=== PATIENT | male | born 1950 | race Caucasian/White ===

== ENCOUNTER → 2016-11-25 | Outpatient (CLI) | payer BC ==
[~2016-11-25] MED LIST: MODA1TAB PO
[2016-11-25 13:30] LABS: ESTIMATED AVERAGE GLUCOSE 166 mg/dl; HA1C FLAG Normal (Normal)
[2016-11-25 13:42] LABS: ALT/SGPT 39 U/L (12-78); AST/SGOT 19 U/L (15-37); BLOOD UREA NITROGEN 22 mg/dl (7-18); CALCIUM 9.3 mg/dl (8.5-10.1); CARBON DIOXIDE 23 mmol/L (21-32); CHLORIDE 105 mmol/L (98-107); GLUCOSE 129 mg/dl (70-99); POTASSIUM 4.7 mmol/L (3.5-5.1); SODIUM 135 mmol/L (136-145)
[2016-11-25 13:44] LABS: ALKALINE PHOSPHATASE 76 U/L (45-117); CHOLESTEROL 168 mg/dl (0-200); CHOLESTEROL/HDL RATIO 5.1; HDL CHOLESTEROL 33 mg/dl; LDL CHOLESTEROL CALCULATED 104 mg/dl; TRIGLYCERIDES 155 mg/dl (0-150); VERY LOW DENSITY LIPOPROT CALC 31 mg/dl
== END | disposition home or self-care (01) ==
LOC: C.LABPVFM 07:48
PROVIDERS: ATTEND Family Medicine
DX: G47.419 Narcolepsy without cataplexy (principal); I10 Essential (primary) hypertension; E78.5 Hyperlipidemia, unspecified; E11.9 Type 2 diabetes mellitus without complications

== ENCOUNTER → 2016-12-02 | Outpatient (CLI) | payer BC ==
[2016-12-02 12:54] LABS: BASO % 0.7 %; BASO ABS # 0.06 K/uL (0-0.2); COMPLETE YES; EOS % 3.6 %; HEMATOCRIT 52.2 % (42-52); IG% 0.4 %; LYMPH % 27.4 %; LYMPH ABS # 2.26 K/uL (1.2-3.4); MEAN CELL VOLUME 91.7 fL (80-100); MEAN CORPUSCULAR HGB CONC 34.9 g/dl (32-36); MEAN PLATELET VOLUME 9.8 fL (7.4-10.4); NEUT % 60.9 %; PLATELET COUNT 259 K/uL (130-400); RED BLOOD COUNT 5.69 M/uL (4.7-6.1); WHITE BLOOD COUNT 8.25 K/uL (4.8-10.8)
[2016-12-02 13:28] LABS: THYROID STIMULATING HORMONE 0.135 uIu/ml (0.300-4.500)
--- NOTE | 2016-12-06 12:55 | CODING QUERY MEDICAL NECESSITY ---
SUPPORTING DIAGNOSIS NEEDED Dr. Abernathy, A supporting diagnosis is required for the test/procedure performed on this patient in order for us to be reimbursed by the patient's insurance. Please provide a supporting diagnosis for the following test/procedure listed below next to the test name along with your signature. *If there is no additional diagnosis for this patient that would support the following test/procedure please document that below next to the test/procedure. Test(s)/Procedure(s) that require a supporting diagnosis: * ([id number]) VITAMIN D ASSAY DIAGNOSIS: DATE OF SERVICE: 12/02/16 Provider Signature: Date: Thank you Obie Bejarano [facility] Information Management Once completed, please kindly fax back to [phone] For questions please call [phone]
== END | disposition home or self-care (01) ==
LOC: C.LABPVFM 09:09
PROVIDERS: ATTEND Family Medicine
DX: D45 Polycythemia vera (principal); R53.83 Other fatigue; E55.9 Vitamin D deficiency, unspecified

== ENCOUNTER → 2017-03-03 | Outpatient (CLI) | payer BC ==
[2017-03-03 12:28] LABS: BASO ABS # 0.08 K/uL (0-0.2); COMPLETE YES; EOS % 5.2 %; HEMATOCRIT 50.8 % (42-52); IG% 0.3 %; LYMPH % 32.3 %; LYMPH ABS # 2.49 K/uL (1.2-3.4); MEAN CELL VOLUME 92.2 fL (80-100); MEAN CORPUSCULAR HEMOGLOBIN 32.3 pg (25-34); MEAN PLATELET VOLUME 9.9 fL (7.4-10.4); MONO % 9.5 %; NEUT % 51.7 %; PLATELET COUNT 270 K/uL (130-400); RED BLOOD COUNT 5.51 M/uL (4.7-6.1); WHITE BLOOD COUNT 7.72 K/uL (4.8-10.8)
[2017-03-03 12:54] LABS: ESTIMATED AVERAGE GLUCOSE 177 mg/dl; HA1C FLAG Normal (Normal)
[2017-03-03 13:21] LABS: ALT/SGPT 31 U/L (12-78); AST/SGOT 17 U/L (15-37); BLOOD UREA NITROGEN 21 mg/dl (7-18); BUN/CREATININE RATIO 11.5 (10-20); CALCIUM 8.6 mg/dl (8.5-10.1); CARBON DIOXIDE 27 mmol/L (21-32); CHLORIDE 105 mmol/L (98-107); GLUCOSE 144 mg/dl (70-99); POTASSIUM 4.5 mmol/L (3.5-5.1); SODIUM 137 mmol/L (136-145)
[2017-03-03 13:24] LABS: ALB/GLOB RATIO 1.1 (0.9-2); ALKALINE PHOSPHATASE 79 U/L (45-117)
[2017-03-03 13:32] LABS: THYROID STIMULATING HORMONE 0.244 uIu/ml (0.300-4.500)
== END | disposition home or self-care (01) ==
LOC: C.LABPVFM 09:08
PROVIDERS: ATTEND Internal Medicine Hematology & Oncology
DX: D75.1 Secondary polycythemia (principal)

== ENCOUNTER → 2017-04-25 | Outpatient (CLI) | payer BC ==
[2017-04-25 12:54] LABS: ESTIMATED AVERAGE GLUCOSE 166 mg/dl; HA1C FLAG Normal (Normal)
[2017-04-25 13:20] LABS: ALT/SGPT 34 U/L (12-78); BLOOD UREA NITROGEN 24 mg/dl (7-18); BUN/CREATININE RATIO 15.4 (10-20); CALCIUM 9.1 mg/dl (8.5-10.1); CARBON DIOXIDE 27 mmol/L (21-32); CHLORIDE 101 mmol/L (98-107); CREATININE 1.58 mg/dl (0.60-1.40); GLUCOSE 141 mg/dl (70-99); POTASSIUM 4.8 mmol/L (3.5-5.1); SODIUM 134 mmol/L (136-145)
[2017-04-25 13:23] LABS: ALB/GLOB RATIO 1.1 (0.9-2); ALKALINE PHOSPHATASE 74 U/L (45-117); AST/SGOT 21 U/L (15-37); THYROID STIMULATING HORMONE 0.174 uIu/ml (0.300-4.500)
[2017-04-30 17:37] LABS: MICROSOMAL AB <1 IU/ML (<9); TSI <89 % baseline (<140)
== END | disposition home or self-care (01) ==
LOC: C.LABPVFM 07:34
PROVIDERS: ATTEND Family Medicine
DX: G47.419 Narcolepsy without cataplexy (principal); D45 Polycythemia vera; I10 Essential (primary) hypertension; E11.9 Type 2 diabetes mellitus without complications; E78.5 Hyperlipidemia, unspecified; R53.83 Other fatigue; K11.8 Other diseases of salivary glands; R94.6 Abnormal results of thyroid function studies

== ENCOUNTER 2017-06-20 01:22 | Emergency (ER) | payer BC ==
[~2017-06-20] VITALS: Ht 177.8 cm; Wt 114.6 kg
[2017-06-20 01:22] VITALS: TEMP 36.8; Ht 177.8 cm; Wt 114.6 kg
[2017-06-20] MEDS ORDERED: MoRPHine SULFATE 10 MG/ML CARP/VIAL IM STA (01:56)
[2017-06-20] MEDS ORDERED: ONDANSETRON 4MG OD TAB PO ONE (02:00)
[2017-06-20 03:58] VITALS: BP 112/74; PULSE 71; O2SAT 93
--- NOTE | 2017-06-20 03:58 | EMERGENCY ROOM VISIT NOTE ---
History First contact with patient: :33 Chief Complaint: FALL Stated Complaint: FALL/LT. LEG PAIN History of Present Illness The patient is a 67 year old male who presents to the Emergency Room with complaints of left groin pain after he slipped and fell on the ice yesterday. Patient has been able to ambulate. Patient denies hitting his head. Patient describes the pain as aching, ranging in severity 7 out of 10 to the groin region. Movement makes it worse and nothing makes it better. Patient denies chest pain, dyspnea, fever, chills, numbness, tingling, radiating pain, back pain, neck pain, weakness. No prior fracture to this region. The fall was greater than 24 hours ago. Review of Systems See HPI for pertinent positives & negatives. A total of 10 systems reviewed and were otherwise negative. Past Medical/Surgical History Medical Problems: (1) Diabetes (2) Hypertension (3) Kidney failure (4) Pancreatitis Family History No pertinent family history Social History Smoking Status: Never Smoker Alcohol Use: none Marital Status: Current/Historical Medications Scheduled Modafinil (Provigil), 200 MG PO DAILY Physical Exam Vital Signs Date Time Temp Pulse Resp B/P (MAP) Pulse Ox O2 Delivery O2 Flow Rate FiO2 06/20/17 02:57 71 20 117/65 92 Room Air 06/20/17 01:22 36.8 70 16 152/97 95 Room Air Physical Exam PHYSICAL EXAM: VITALS: Vitals are noted on the nurse's note and reviewed by myself. Vital signs stable. GENERAL: Pleasant male, in no acute distress, nondiaphoretic, well-developed well-nourished. SKIN: The skin was without obvious lacerations or abrasions. Capillary reflex less than 2 seconds. HEAD: Normocephalic atraumatic. EARS: External auditory canals clear, tympanic membranes pearly ann without erythema or effusion bilaterally. No hemotympanums. No romero sign. No mastoid tenderness. EYES: Pupils equal round and reactive to light and accommodation. Conjunctivae without injection, sclerae without icterus. Extraocular movements intact. NOSE: Patent, turbinates without inflammation or discharge. No sinus tenderness. No septal hematoma or bleeding. MOUTH: Mucous membranes moist. Pharynx without erythema or exudate. Uvula midline. Airway patent. Tongue does not deviate. NECK: Supple without nuchal rigidity. Cervical spine is nontender. Full range of motion of the neck without tenderness. No JVD. HEART: Regular rate and rhythm LUNGS: Clear to auscultation bilaterally without wheezes, rales or rhonchi. No dullness to percussion. No retractions or accessory muscle use. No chest wall tenderness. ABDOMEN: Positive bowel sounds x 4. Normal tympanic percussion. Soft, nontender, without masses or organomegaly. No guarding or rebound tenderness. MUSCULOSKELETAL: No tenderness of the thoracic or lumbar spine. Left groin and hip tenderness with pelvic rocking. Left hip pain with range of motion of left leg. Full range of motion without tenderness to palpation in all other extremities. Strength 4 out of 5 to the left leg and all other extremities are Strength 5/5 throughout. Peripheral pulses 2+. NEURO: Patient was alert and oriented to person place and time. Normal Mini- Mental status exam. Normal sensation to light and sharp touch. Cerebellar function intact. No focal neurological deficits. Medical Decision & Procedures Laboratory Results Test 06/20/17 02:00 06/20/17 02:18 Urine Color YELLOW Urine Appearance CLEAR (CLEAR) Urine pH 5.0 (4.5-7.5) Urine Specific Covel 1.016 (1.000-1.030) Urine Protein NEG (NEG) Urine Glucose (UA) NEG (NEG) Urine Ketones NEG (NEG) Urine Occult Blood NEG (NEG) Urine Nitrite NEG (NEG) Urine Bilirubin NEG (NEG) Urine Urobilinogen NEG (NEG) Urine Leukocyte Esterase NEG (NEG) Bedside Glucose 158 mg/dl (70-99) Medications Administered Medications (Trade) Dose Ordered Sig/Mary Route Start Time Stop Time Status Last Admin Dose Admin Morphine Sulfate (MoRPHine SULFATE INJ) 8 mg NOW STAT IM 06/20/17 01:56 06/20/17 02:00 DC 06/20/17 02:14 8 MG Ondansetron HCl (Zofran Odt) 4 mg ONE ONCE PO 06/20/17 02:00 06/20/17 02:01 DC 06/20/17 02:14 4 MG ED Course Prior records/ancillary studies reviewed. Triage Nursing notes reviewed. Additional history obtained from family The patient's history was concerning for left groin pain. Differential diagnosis: Etiologies such as musculoskeletal, disc herniation, fracture, aortic disease, metastatic disease, cord compression, discitis, infection, renal colic, gastrointestinal, acute exacerbation of chronic back pain, sciatica, cauda equina, as well as others were entertained. Physical findings: As above. No focal neurologic findings noted. ER treatment provided: Morphine, home pack of OxyIR On reassessment the patient felt better. Diagnostics interpreted by me: The labs revealed hyperglycemia Imaging studies: Hip and pelvis x-ray with no obvious fracture per my interpretation. Patient was still in moderate amount of pain so further imaging was ordered and CT was negative for fracture per radiology. Chronic hernia was present unchanged per radiology. This appears to be consistent with left groin strain. Patient was neurovascularly and neurologically intact. He was well-appearing. He is advised to stretch the area out and take NSAIDs for the pain. He was advised to follow-up family care in a few days here in the ER sooner for severe pain, numbness, tingling, worsening signs or symptoms or as needed. Patient and related out of the ER. The patient's physical examination and detailed history did not reveal any red flags for left hip/groin pain such as those listed in the differential diagnosis. Therefore advanced diagnostics and consultations were felt to be unwarranted. By the evaluation outlined above emergent etiologies such as fracture, aortic disease, metastatic disease, infection, renal colic, gastrointestinal, cord compression, cauda equina, as well as others were deemed relatively unlikely. The pt informed about the findings as listed above. All questions were answered and pleased with the treatment. Return instructions were outlined and the patient was discharged in stable condition. Bowen reviewed with my attending Referral: The patient was referred back to primary care physician for follow-up in 2 to 3 days for a recheck of the current condition. Medical Decision As above Medication Reconcilliation Current Medication List: was personally reviewed by me Blood Pressure Screening Patient's blood pressure: Normal blood pressure Impression Primary Impression: Strain of left inguinal muscle Additional Impression: Fall Departure Information Dispostion Home / Self-Care Condition GOOD Forms HOME CARE DOCUMENTATION FORM, IMPORTANT VISIT INFORMATION Patient Instructions My [facility], ED Strain Groin Additional Instructions DO NOT drive, drink alcohol, operate machinery, or perform dangerous activities today. You were given medications in the ER that can affect your ability to safely function or operate a vehicle. Oxycodone (OxyIR) 5mg: Take 1-2 pills every four hours for breakthrough pain. Avoid alcohol, operating machinery or dangerous equipment, working on ladders or roofs, DRIVING, or situations where being under the influence may be dangerous. It is recommended to use an [id number] stool softener such as Colace, 100mg twice daily while taking this medication to avoid constipation. Ibuprofen(Motrin, Advil) may be used for fever or pain. Use 600mg every six hours as needed. Take with food. Avoid using more than 2400mg in a 24 hour period. Do not use 2400mg per day for more than three consecutive days without physician direction. Prolonged inappropriate use can lead to stomach upset or ulcers. This medication can be taken if you need to drive, work, or perform activities which may be dangerous when taking narcotic pain medication. (AND/OR) Acetaminophen(Tylenol) may be used for fever or pain. Use 1000mg every six hours as needed. Avoid using more than 3000mg in a 24 hour period. This medication can be taken if you need to drive, work, or perform activities which may be dangerous when taking narcotic pain medication. Rest and avoid heavy lifting until your symptoms resolve and then gradually return to full activity. A good rule of thumb is if it hurts your back to perform a certain activity, then it should be avoided until you are healthy again. A heating pad, warm compresses, or a hot shower may help with tight muscles and can be done several times a day as needed. Continue current medications. Return to the ER immediately for any numbness, tingling, severe pain, loss of control of your bowels or bladder, inability to walk, or as needed. Follow up with your primary care physician within 3-5 days for a recheck of your current condition. Problem Qualifiers Primary Impression: Strain of left inguinal muscle Encounter type: initial encounter Qualified Codes: S39.013A - Strain of muscle, fascia and tendon of pelvis, initial encounter
[2017-06-20] MEDS ORDERED: OXYCODONE IR HOME PACK PO ONE (04:00)
--- NOTE | 2017-06-20 06:44 | DIAGNOSTIC IMAGING REPORT ---
L PELVIS/UNILATERAL HIP 2-3VIEWS CLINICAL HISTORY: fall, pain trauma COMPARISON: None. DISCUSSION: Mild calcific trochanteric bursitis. Small old avulsion from the lesser trochanter, right hip. Negative left hip. No evidence for acetabular protrusion.. There is no evidence for soft tissue swelling. IMPRESSION: Mild degenerative change. No acute process. The above report was generated using voice recognition software. It may contain grammatical, syntax or spelling errors. Electronically signed by: Keshav Wong M.D. 06/20/2017 6:42 AM Dictated Date/Time: 06/20/2017 6:41 AM
--- NOTE | 2017-06-20 07:32 | DIAGNOSTIC IMAGING REPORT ---
L LOWER EXTREMITY WITHOUT CT DOSE: 243.40 mGy.cm HISTORY: Pain severe left hip pain, ? fx TECHNIQUE: Multiaxial CT images of the left hip were performed and reformatted in the sagittal and coronal plane without the use of contrast. A dose lowering technique was utilized adhering to the principles of ALARA. COMPARISON: None. FINDINGS: No fracture or dislocation. Soft tissues are unremarkable. Fat-containing left inguinal hernia. No evidence of bowel containment. Left hip shows no evidence for acute bony abnormality. Cortical margins appear intact. IMPRESSION: 1. Negative left hip. 2. Fat-containing left inguinal hernia. The above report was generated using voice recognition software. It may contain grammatical, syntax or spelling errors. Electronically signed by: Keshav oWng M.D. 06/20/2017 7:30 AM Dictated Date/Time: 06/20/2017 7:28 AM
== END 2017-06-20 04:01 | disposition home or self-care (01) ==
LOC: EDBD 01:22 → C.EDA 01:24
DX: S39.013A Strain of muscle, fascia and tendon of pelvis, initial encounter (principal); W19.XXXA Unspecified fall, initial encounter; E11.9 Type 2 diabetes mellitus without complications; I10 Essential (primary) hypertension; N17.9 Acute kidney failure, unspecified

== ENCOUNTER → 2017-06-23 | Outpatient (CLI) | payer BC ==
--- NOTE | 2017-06-23 12:34 | DIAGNOSTIC IMAGING REPORT ---
CT SCAN OF THE CHEST WITHOUT IV CONTRAST CLINICAL HISTORY: Smoker. Fatigue. Obstructive sleep apnea. COMPARISON STUDY: Chest radiographs dated 12/13/2015. TECHNIQUE: CT scan of the thorax was performed from the thoracic inlet to the upper abdomen. Images are reviewed in the axial, sagittal, and coronal planes. IV contrast was not administered for this examination as per the referring clinician. A dose lowering technique was utilized adhering to the principles of ALARA. CT DOSE: 976.19 mGy.cm FINDINGS: Thyroid: Imaged portions of the thyroid gland are normal in size and attenuation. Thoracic aorta: There is mild atherosclerotic calcification of the thoracic aorta, which is normal in caliber and demonstrates 4-vessel variant arch anatomy. Heart: The heart is normal in size and without pericardial effusion. There are coronary artery calcifications. Lungs and pleural spaces: The trachea and central airways are clear. Minimal emphysematous change is identified. There is no airspace consolidation or pleural effusion. Mild diffuse peribronchial thickening is noted. Mediastinum: There are scattered subcentimeter mediastinal lymph nodes. These are not pathologically enlarged by size criteria. Kaylyn: Not well assessed without IV contrast. Axillae: There is no axillary lymphadenopathy. Upper abdomen: A tiny hiatal hernia is identified. There is evidence of hepatic steatosis a 2.1 cm left adrenal nodule meets CT criteria for a fat-containing adenoma. Skeletal structures: No lytic or blastic bony lesions are seen. Soft tissues: A BB is present within the right lower chest wall, best seen on axial image #225. IMPRESSION: 1. Minimal emphysematous change is identified. 2. There is no airspace consolidation or pleural effusion. Mild diffuse peribronchial thickening suggests reactive airway disease. Clinical correlation will be required. 4. Hepatic steatosis. 5. A metallic BB is present within the right chest wall. Electronically signed by: Isaías Reyes M.D. 06/23/2017 12:32 PM Dictated Date/Time: 06/23/2017 12:27 PM
== END | disposition home or self-care (01) ==
LOC: C.CTS 12:03
PROVIDERS: ATTEND Internal Medicine Pulmonary Disease
DX: F17.200 Nicotine dependence, unspecified, uncomplicated (principal); G47.33 Obstructive sleep apnea (adult) (pediatric); R53.83 Other fatigue; R05 Cough

== ENCOUNTER → 2017-06-26 | Outpatient (CLI) | payer BC ==
--- NOTE | 2017-06-27 00:39 | PAP/PSG TECHNICIAN REPORT ---
[facility] Cyber Instructor Polysomnogram Report Study name: None Report date: 06/27/2017 Study date: 06/26/2017 Referring Physician: Neptali Boyd MD Name: MADHU HAGAN Interpreting Physician: Epi Hayes D.O. Date of : 1950 Cyber Instructor: REED Elizabeth. Sex: Male Age: 67 StudyType: PSG PAP Weight: 249 lbs Height: 67 years, Height 5' 10" BMI: 35.72 Medications: Lisinopril 20mg, Lantus 40units, Provigil 200mg, ASA 325mg, Vit E Patient History Study started on room air with no ETCO2 monitoring in room #8. 67 yr old male here tonight for a new titration study. He had a diagnostic psg done here on 03/27/17 that had an AHI of 5.3 His ESS=3/24. Parameters Monitored NPSG: E1-M2, E2-M1, Fp1-M2, Fp2-M1, F3-M2, F4-M2, F4-M1, C3-M2, C4-M2, C4-M1, O1-M2, O2-M2, O2-M1, T3-M2, T4-M1, P3-M2, P4-M1, CHIN1, CHIN2, HR, EKG, Legs, PFLOW, SNOR, FLOW, CFLOW, Tidal Volume, THOR, ABDO, SpO2, PLTH, CPRESS, ETCO2 Wave, ETCO2, pH Sleep Architecture Sleep Stages Time at Lights Off 8:33:49 PM STAGES Time (min.) TST (%) Time at Lights On 11:45:49 PM Wake 146.5 -- Total Recording Time (TRT) 191.50 min. N1 12.5 28 Total Sleep Period (TSP) 65.0 min. N2 24.5 54 Total Sleep Time (TST) 45.0min. N3 8.0 18 Awake Time 146.5 min. REM 0.0 0 Wake after Sleep Onset 79.5 min. Sleep Efficiency (SE) 23 % Sleep Onset Latency (CARMEN) 67.5 min. Number of Stage 1 Shifts None Awakenings 10 Stage Changes 36 Number of REM periods N/A REM 0.0 0 REM Latency NONE min. NREM 45.0 100 Body Position Analysis Supine Right Left Side Prone Vertical Total Sleep Time (min.) 80.4 38.0 0.0 38.00 0.0 0.0 Total Sleep Time (%) 16% 84% 0% 84 0% N/A% Total Sleep Time REM (min.) 0.0 0.0 0.0 None 0.0 0.0 Total Sleep Time NREM (min.) 7.0 38.0 0.0 None 0.0 0.0 Intermittent Wake (min.) 73.4 17.5 55.6 None 0.0 0.0 Total Sleep Period (%) 24% None None None None None Arousals Myoclonus (PLM) * Events Count Index Events Count Index Spontaneous 10 13 Events Awake (PLMW) 88 36.0 Respiratory 0 0.0 Events Asleep w/ Arousal (PLMA) 5 6.7 PLM 5 7 Events Asleep w/o Arousal (PLMS) 15 20.0 Snoring 3 4 Total Asleep 20 26.7 Total 18 24 Total 108 34 Respiratory Analysis * CA OA MA CH H RERA Total Count 0 0 0 0 1 0 1 Index 0.0 0.0 0.0 0 1.3 0 1.3 Mean Duration 0.0 0.0 0.0 0.00 10.3 0.0 10.3 Longest Duration 0.0 0.0 0.0 0.00 0.0 0.0 10.3 Respiratory Event Summary Total Supine ~Supine Right Left Prone REM NREM Apneas Count 0 0 0 0 N/A N/A N/A 0 Index 0.0 0 0 0.0 N/A N/A N/A 0 Hypopneas (4% Desat) Count 1 0 1 1 N/A N/A N/A 1 Index 1.3 0.0 2 1.6 N/A N/A N/A 1.3 Apneas & All Hypopneas Count 1 0 1 1 N/A N/A N/A 1 Index 1.3 0 2 2 N/A N/A N/A 1.3 Respiratory Events (Application Release Manager+All Hyp+RERA) Count 1 0 1 1 N/A N/A N/A 1 Index 1.3 0 2 1.6 N/A N/A N/A 1.3 Respiratory Related Arousal Count 0 0 0 0 N/A N/A N/A 0 Index 0.0 0 0 0 N/A N/A N/A 0 Snoring Analysis Supine Right Left Prone REM NREM Total Snore duration 0.3 min Snores count 3 18 N/A N/A N/A 21 21 Snore mean duration 1.0 Sec Snores index 26 28 N/A N/A N/A 28.0 28.0 TST with snoring (%) 0.7% Desaturation Event Summary: Minimum %SpO2 Event Count Mean/Min/Max Duration(sec.) Desaturation Index % Time In Bed > 90 4 38.1 / 14.5 / 47.8 1.8 71.8 86 - 90 2 13.5 / 12.5 / 14.5 2.4 28.2 81 - 85 0 N/A 0.0 0.0 76 - 80 0 N/A 0.0 0.0 71 - 75 0 N/A 0.0 0.0 66 - 70 0 N/A 0.0 0.0 61 - 65 0 N/A 0.0 0.0 56 - 60 0 N/A 0.0 0.0 51 - 55 0 N/A 0.0 0.0 < 50 0 N/A 0.0 0.0 Total REM NREM Awake <50% 0.0 min. 0.0 min. 0.0 min. 0.0 min. 51 - 60% 0.0 min. 0.0 min. 0.0 min. 0.0 min. 61 - 70% 0.0 min. 0.0 min. 0.0 min. 0.0 min. 71 - 80% 0.0 min. 0.0 min. 0.0 min. 0.0 min. 81 - 90% 51.1 min. 0.0 min. 20.2 min. 30.8 min. 91 - 100% 129.8 min. 0.0 min. 24.7 min. 105.1 min. Average 92 0 91 92 Minimum SpO2 85 N/A 87 85 Desaturation Event Index 1.6 0.0 1.3 1.6 # Desat. Events below 89% 3 N/A 1 2 Time(%) with Saturation below 89% 2.3 0.0 0.3 2.0 Time(min.) with Saturation below 89% 4.1 0.0 0.5 3.6 Time (mins) REM (mins) NREM (mins) % of TST SpO2 Below 90% 1 N/A N1 11.6 SpO2 Below 88% 0 0 0 0 Heart Rate Analysis Min (bpm) Max (bpm) Average (bpm) Awake 54 127 60 NREM 58 68 62 REM N/A N/A N/A Overall 58 68 62 Supplemental O2 Values Minimum O2 level: None Value Start Time End Time Cyber Instructor Comments Mr. Hagan slept in the right, left and supine positions. No cardiac arrhythmia noted. Some leg movements were noted. No bruxism noted. CPAP was initiated at +4 CMH2O. A large Simplus full face mask by Facundo was used during titration. At 11:45pm the study was ended. Mr. Hagan said that" the cpap makes me feel worse. I have pain in my right kidney area and it is moving to my chest". He wanted the wires off and the test ended but he would not allow me to call 911. He used the restroom and the wires were removed and he said he did feel better. He got back into bed because he wanted to try and get a little more sleep before driving home. He agreed to let me put EKG wires and a pulse oximeter back on him while he was in bed. The test was inconclusive. He slept for only 45 minutes. He said that he is not interested in using this at home. The final report will be interpreted and signed by a sleep physician. The completed physician report will then be placed in the patient medical record. Therapy Event: Therapy (cm H20) 4 Total Time at Pressure (min.) 191.5 TST at Pressure (min.) 45.0 # Periods 1 Sleep Onset (min.) 67.5 REM Onset (min.) N/A Sleep Efficiency % 23 Wakefulness (%) 76.5 Wakefulness (min.) 146.5 NREM 1 (%) 6.5 NREM 1 (min.) 12.5 NREM 2 (%) 12.8 NREM 2 (min.) 24.5 NREM 3 (%) 4.2 NREM 3 (min.) 8.0 REM (%) 0.0 REM (min.) 0.0 # Arousals 18 Arousal Index 24.0 # Snore 21 Snore Index 28.0 AHI 1.3 AHI Supine 0.0 AHI Non-Supine 1.6 NREM AHI 1.3 REM AHI N/A RDI 1.3 # Obstructive 0 # Central Ap 0 # Mixed 0 # Hypopneas 1 RERAS 0 Total Respiratory Events 1 Time Below SpO2 89.00% (min.) 0.5 Mean NREM SpO2 (%) 91 Mean REM SpO2 (%) N/A Mean Sleep SpO2 (%) 91 Min NREM SpO2 (%) 87 Min REM SpO2 (%) N/A Position Supine (min.) 7.0 Position Non-supine (min.) 38.0 LM Index Sleep 26.7 LM Index NREM 26.7 LM Index REM N/A Mean Heart Rate (bpm) 62 Min Heart Rate (bpm) 58
--- NOTE | 2017-07-02 08:57 | Sleep Study ---
Sleep Study Report Date of Service: 06/26/2017 Sleep Study Report CLINICAL DATA: The patient is a 67-year-old male who has a prior history of narcolepsy. There is a history of snoring and observed apneas. He has secondary polycythemia. A diagnostic sleep study was done 03/27/2017 showing mild sleep apnea with an apnea-hypopnea index of 5.3. He is referred to the sleep laboratory for a CPAP titration. SLEEP ARCHITECTURE: The total sleep period was 65 minutes. The total sleep time was 45 minutes. The sleep efficiency was severely reduced to 23 percent. The sleep latency was severely prolonged at 67.5 minutes. Wake after sleep onset was 79.5 minutes. Sleep consisted of stage N1 28 percent, stage N2 54 percent, stage N3 18 percent , stage REM 0 percent. AROUSAL DATA: The patient had a total of 18 arousals including 10 spontaneous arousals, 5 PLM arousals, and 3 snoring arousals. The arousal index was 24. PLM DATA: The patient had 20 periodic limb movements of sleep for a PLM index of 26.7. There were 5 arousals associated with limb movements for a PLM arousal index of 6.7. EKG: The underlying cardiac rhythm was normal sinus. The cardiac rates 58-68 beats per minute. The average heart rate was 62 beats per minute. No arrhythmia was noted. RESPIRATORY DATA: The patient's respiratory events were treated with nasal CPAP. He had a total of 1 respiratory event, a hypopnea. Hypopneas were scored according to the 4 percent desaturation rule. The hypopnea was 10.3 seconds in length. The apnea- hypopnea index was 1.3. OXIMETRY DATA: The average saturation was 92 percent. The minimum saturation was 85 percent. There was a total of 4.1 minutes with saturations less than 89 percent. ELECTRONIC EQUIPMENT INSTALLER COMMENTS: The patient slept on the right, left, and supine positions. No cardiac arrhythmia noted. Some leg movements were noted. No bruxism noted. CPAP was initiated at 4 centimeters. A large Simplus fullface mask by Facundo was used during titration. At 11:45 p.m. the study was ended. The patient stated the CPAP makes me feel worse. I have pain in my right kidney area and is moving to my chest. He wanted the wires often the test ended but he would not allow me to call 911. He used the restroom and the wires were removed and he said he felt better. He got back into bed because he wanted to try and get a little more sleep before driving home. He agreed to let me put EKG wires and pulse oximeter back on him while he was in bed. The test was inconclusive. He slept for only 45 minutes. He said that he is not interested in using this at home. IMPRESSIONS: 1. Obstructive sleep apnea 2. Narcolepsy by history COMMENTS: The patient had very little sleep. He was not willing to stay for the CPAP titration. No definite conclusions can be drawn. If the patient refuses CPAP therapy would do an overnight pulse oximetry on room air to determine if he is a candidate for nocturnal oxygen therapy. Copies To 1: Alicia Abernathy M.D.; Epi Hayes DO; Kris Summers MD
== END | disposition home or self-care (01) ==
LOC: C.NEUR 20:00
PROVIDERS: ATTEND Internal Medicine Pulmonary Disease
DX: F17.200 Nicotine dependence, unspecified, uncomplicated (principal); G47.33 Obstructive sleep apnea (adult) (pediatric)

== ENCOUNTER → 2017-07-28 | Outpatient (CLI) | payer BC ==
[2017-07-28 12:25] LABS: BASO % 0.6 %; BASO ABS # 0.05 K/uL (0-0.2); EOS % 3.7 %; EOS ABS # 0.33 K/uL (0-0.5); HEMATOCRIT 47.7 % (42-52); HEMOGLOBIN 16.7 g/dL (14.0-18.0); IG# 0.02 K/uL (0.00-0.02); LYMPH % 27.2 %; LYMPH ABS # 2.45 K/uL (1.2-3.4); MEAN CELL VOLUME 90.5 fL (80-100); MEAN CORPUSCULAR HEMOGLOBIN 31.7 pg (25-34); MEAN PLATELET VOLUME 9.7 fL (7.4-10.4); MONO % 7.2 %; MONO ABS # 0.65 K/uL (0.11-0.59); NEUT % 61.1 %; PLATELET COUNT 258 K/uL (130-400); RED CELL DISTRIBUTION WIDTH CV 14.6 % (11.5-14.5); RED CELL DISTRIBUTION WIDTH SD 48.1 fL (36.4-46.3)
[2017-07-28 12:59] LABS: ALBUMIN 4.1 gm/dl (3.4-5.0); ALT/SGPT 32 U/L (12-78); BLOOD UREA NITROGEN 25 mg/dl (7-18); CARBON DIOXIDE 27 mmol/L (21-32); GLUCOSE 213 mg/dl (70-99); POTASSIUM 4.6 mmol/L (3.5-5.1); SODIUM 134 mmol/L (136-145)
[2017-07-28 13:02] LABS: ALKALINE PHOSPHATASE 105 U/L (45-117); AST/SGOT 19 U/L (15-37); TOTAL PROTEIN 7.9 gm/dl (6.4-8.2)
== END | disposition home or self-care (01) ==
LOC: C.LABPVFM 10:18
PROVIDERS: ATTEND Internal Medicine Hematology & Oncology
DX: D75.1 Secondary polycythemia (principal)

== ENCOUNTER → 2018-01-08 | Day surgery (SDC) | payer BC ==
[2018-01-05 12:07] VITALS: Ht 180.3 cm; Wt 111.4 kg
[~2018-01-08] VITALS: Ht 180.3 cm; Wt 111.4 kg
[~2018-01-08] MED LIST changes: +ALBUAER INH; +ALOE25CA4 PO; +GARL10007 PO; +INSDGI SC; +LIDOCAINE HCL 2% 2 ML VIAL (20MG/ML) ONE; +LISI20TA3 PO; +MIDAZOLAM HCL 1 MG/ML 2ML VIAL ONE; +NVLGIPEN SC; +ONDANSETRON INJ 2 MG/ML 2 ML VIAL ONE; +PROPOFOL IV EMULSION 10 MG/ML 20 ML VIAL ONE; +SODIUM CHLORIDE 0.9% 500ML 500 ML IV ONE; +VITA1CAP4 PO; +VITA1CRE PO
--- NOTE | 2018-01-08 14:31 | Endo History and Physical ---
History & Physical Date of Service: Jan 08, 2018. Chief Complaint: SCREENING Referring Physician: DR. REED History of Present Illness 67 yo CM who presents for screening colonoscopy. Past Surgical History Hx Cardiac Surgery: No Hx Internal Defibrillator: No Hx Pacemaker: No Hx Abdominal Surgery: No Hx of Implantable Prosthesis: No Hx Post-Op Nausea and Vomiting: No Hx Cancer Surgery: No Hx Thoracic Surgery: No Hx Orthopedic: No Hx Urinary Tract Surgery: No Family History None Social History Smoking Status: Former Smoker Hx Substance Use: No Hx Alcohol Use: No Allergies Coded Allergies: Corticosteroids (Verified Allergy, Severe, SWELLILNG, HIVES AFTER KIDNEY ISSUES, 01/05/18) Penicillins (Verified Allergy, Mild, RASH, 01/05/18) Uncoded Allergies: ADRENALS (Allergy, Unknown, 06/30/09) Current Medications Reported Home Medications Medications Dose Route/Sig Max Daily Dose Days Date Category E 1000 (Vitamin E) 1,000 Unit Cap 1 Cap PO DAILY 01/08/18 Reported Proventil Hfa (Albuterol Sulfate) 108 Mcg/Act Aer 2 Puffs INH Q4 PRN 01/05/18 Reported Novolog Flexpen (Insulin Aspart) 100 Units/Ml Inj 2-10 Units SC QID 01/05/18 Reported Prinivil (Lisinopril) 20 Mg Tab 20 Mg PO HS 01/05/18 Reported Lantus (Insulin Glargine) 100 Unit/Ml Inj 48 Units SC QDL 01/05/18 Reported Garlic 1,000 Mg Cap 1 Cap PO DAILY 01/05/18 Reported Aloe Vera 25 Mg Cap 1 Cap PO DAILY 01/05/18 Reported Provigil (Modafinil) 200 Mg Tab 200 Mg PO DAILY 08/27/08 Reported Vital Signs Weight (Kilograms): 111.36 Height (Feet): 5 Height (Inches): 11 Date Time Temp Pulse Resp B/P (MAP) Pulse Ox O2 Delivery O2 Flow Rate FiO2 01/08/18 14:24 36.6 80 20 138/99 (112) 95 Room Air Physical Exam General Appearance: WD/WN, no apparent distress Respiratory/Chest: Auscultation: breath sounds normal Cardiovascular: Heart Auscultation: RRR Abdomen: Bowel Sounds: normal Inspection & Palpation: soft, non-distended, no tenderness, guarding & rebound Assessment and Plan Assessment: 67 yo CM who presents for screening colonoscopy. Plan: Proceed with colonoscopy.
--- NOTE | 2018-01-08 15:47 | Discharge Instructions ---
Endoscopy Patient Instructions Date / Procedure(s) Performed Jan 08, 2018. Colonoscopy Allergy Information Coded Allergies: Corticosteroids (Verified Allergy, Severe, SWELLILNG, HIVES AFTER KIDNEY ISSUES, 01/05/18) Penicillins (Verified Allergy, Mild, RASH, 01/05/18) Uncoded Allergies: ADRENALS (Allergy, Unknown, 06/30/09) Discharge Date / Findings Jan 08, 2018. Internal hemorrhoids Medication Instructions OK to resume all medications today as prescribed Reported Home Medications Medications Dose Route/Sig Max Daily Dose Days Date Category E 1000 (Vitamin E) 1,000 Unit Cap 1 Cap PO DAILY 01/08/18 Reported Proventil Hfa (Albuterol Sulfate) 108 Mcg/Act Aer 2 Puffs INH Q4 PRN 01/05/18 Reported Novolog Flexpen (Insulin Aspart) 100 Units/Ml Inj 2-10 Units SC QID 01/05/18 Reported Prinivil (Lisinopril) 20 Mg Tab 20 Mg PO HS 01/05/18 Reported Lantus (Insulin Glargine) 100 Unit/Ml Inj 48 Units SC QDL 01/05/18 Reported Garlic 1,000 Mg Cap 1 Cap PO DAILY 01/05/18 Reported Aloe Vera 25 Mg Cap 1 Cap PO DAILY 01/05/18 Reported Provigil (Modafinil) 200 Mg Tab 200 Mg PO DAILY 08/27/08 Reported Provider Instructions Activity Restrictions - No exercising or heavy lifting for 24 hours. - Do not drink alcohol the day of the procedure. - Do not drive a car or operate machinery until the day after the procedure. - Do not make any important decisions or sign important papers in 24 hours after the procedure. Following Day: - Return to full activity which may include returning to work/school. Diet Start your diet with liquids and light foods (jello, soup, juice, toast). Then eat your usual diet if not nauseated. Treatment For Common After Affects For mild abdominal pain, bloating, or excessive gas: - Rest - Eat lightly - Lie on right side Follow-Up Information Follow-up with DR. REED as scheduled Anesthesia Information What You Should Know You have had a procedure that required some medicine to reduce anxiety and discomfort. This treatment is called moderate sedation. After receiving the treatment, you may be sleepy, but you will be able to breathe on your own. The effects of the treatment may last for several hours. Follow these instructions along with Activity/Diet recommendations noted above: * Do NOT do anything where dizziness or clumsiness would be dangerous. * Rest quietly at home today, then you can be up and about tomorrow. * Have a responsible person stay with you the rest of today. * You may have had an I.V. today. If so, you may take the dressing off later today. Recommendations Call your doctor if: * Trouble breathing * Continuous vomiting for more than 24 hours * Temperature above 101 degrees * Severe abdominal pain or bloating * Pain not relieved by pain medicine ordered * There is increased drainage or redness from any incision * A large amount of rectal bleeding greater than 2-3 tablespoons. (If you had a polyp/s removed or have hemorrhoids, a small amount of blood - from the rectum is to be expected.) * You have any unanswered questions or concerns. IN THE EVENT OF A SERIOUS EMERGENCY, GO TO THE NEAREST EMERGENCY ROOM Your discharge instructions were prepared by provider Roe Weldon. Patient Instructions Signature Page Bhavin Dunlap Patient (or Guardian) Signature/Date: I have read and understand the instructions given to me by my caregivers. Caregiver/RN/Doctor Signature/Date: The above-named patient and/or guardian has received patient instructions on this date. + Original Patient Signature Page (only) stays with chart. Please make copy for patient.
--- NOTE | 2018-01-08 15:47 | Anesthesiology Progress Note ---
Anesthesia Post Op Note Date & Time Jan 08, 2018 at 15:47 Vital Signs Pain Intensity: 0 Vital Signs Past 12 Hours Date Time Temp Pulse Resp B/P (MAP) Pulse Ox O2 Delivery O2 Flow Rate FiO2 01/08/18 14:24 36.6 80 20 138/99 (112) 95 Room Air Notes Mental Status: alert / awake / arousable, participated in evaluation Pt Amnestic to Procedure: Yes Nausea / Vomiting: adequately controlled Pain: adequately controlled Airway Patency, RR, SpO2: stable & adequate BP & HR: stable & adequate Hydration State: stable & adequate Anesthetic Complications: no major complications apparent The patient is awake and stable in recovery.
--- NOTE | 2018-01-08 16:18 | Anesthesiology Progress Note ---
Anesthesia Post Op Note Date & Time Jan 08, 2018 at 16:18 Vital Signs Pain Intensity: 0 Vital Signs Past 12 Hours Date Time Temp Pulse Resp B/P (MAP) Pulse Ox O2 Delivery O2 Flow Rate FiO2 01/08/18 16:07 60 20 128/67 (87) 97 Room Air 01/08/18 15:52 64 20 117/70 (86) 95 Room Air 01/08/18 14:24 36.6 80 20 138/99 (112) 95 Room Air Notes Mental Status: alert / awake / arousable, participated in evaluation Pt Amnestic to Procedure: Yes Nausea / Vomiting: adequately controlled Pain: adequately controlled Airway Patency, RR, SpO2: stable & adequate BP & HR: stable & adequate Hydration State: stable & adequate Anesthetic Complications: no major complications apparent
[2018-01-08 16:22] VITALS: BP 132/75; PULSE 63; O2SAT 97
--- NOTE | 2018-01-08 16:22 | GI REPORT ---
Patient Name: Bhavin Dunlap Procedure Date: 01/08/2018 3:09 PM Date of : 1950 Admit Type: Outpatient Age: 67 Gender: Male Attending MD: Roe Weldon DO Procedure: Colonoscopy Providers: Roe Weldon DO Referring MD: Alicia Abernathy Indications: Screening for colorectal malignant neoplasm Medicines: Monitored Anesthesia Care Complications: No immediate complications. Estimated Blood Loss: Estimated blood loss: none. Procedure: Pre-Anesthesia Assessment: - Prior to the procedure, a History and Physical was performed, and patient medications and allergies were reviewed. The patient's tolerance of previous anesthesia was also reviewed. The risks and benefits of the procedure and the sedation options and risks were discussed with the patient. All questions were answered, and informed consent was obtained. Prior Anticoagulants: The patient has taken no previous anticoagulant or antiplatelet agents. ASA Grade Assessment: III - A patient with severe systemic disease. After reviewing the risks and benefits, the patient was deemed in satisfactory condition to undergo the procedure. After I obtained informed consent, the scope was passed under direct vision. Throughout the procedure, the patient's blood pressure, pulse, and oxygen saturations were monitored continuously. The scope was introduced through the anus and advanced to the terminal ileum. The colonoscopy was performed without difficulty. The patient tolerated the procedure well. The quality of the bowel preparation was good. The terminal ileum, ileocecal valve, appendiceal orifice, and rectum were photographed. Findings: The perianal and digital rectal examinations were normal. Non-bleeding internal hemorrhoids were found during retroflexion. The hemorrhoids were small. Impression: - Non-bleeding internal hemorrhoids. - No specimens collected. Recommendation: - Resume previous diet. - Continue present medications. - Return to primary care physician as previously scheduled. Roe Weldon DO 01/08/2018 4:22:14 PM This report has been signed electronically. Note Initiated On: 01/08/2018 3:09 PM Number of Addenda: 0 I attest to the content of the Intraoperative Record and orders documented therein, exceptions below {[id number]}
== END | disposition home or self-care (01) ==
LOC: C.GI 13:58
PROVIDERS: ATTEND Internal Medicine
DX: Z12.11 Encounter for screening for malignant neoplasm of colon (principal); K64.8 Other hemorrhoids; E11.22 Type 2 diabetes mellitus with diabetic chronic kidney disease; N18.9 Chronic kidney disease, unspecified; I12.9 Hypertensive chronic kidney disease with stage 1 through stage 4 chronic kidney disease, or unspecified chronic kidney disease; G47.33 Obstructive sleep apnea (adult) (pediatric); E66.9 Obesity, unspecified; Z68.34 Body mass index [BMI] 34.0-34.9, adult; Z88.0 Allergy status to penicillin; Z88.8 Allergy status to other drugs, medicaments and biological substances; Z87.891 Personal history of nicotine dependence; Z79.4 Long term (current) use of insulin; Z79.899 Other long term (current) drug therapy

== ENCOUNTER 2021-10-26 11:23 | Observation (INO) ==
--- NOTE | 2021-10-26 11:42 | Emergency Department Note ---
Impression & Plan Heart block ADMIT ED Provider Note HPI: The patient is a 71-year-old gentleman with history of hypertension, obesity, type 2 diabetes, presents emergency department with a chief complaint of bradycardia from his primary care provider's office. Patient presents via EMS. He states he has not had any symptoms recently although he does sometimes get some dizziness. Currently patient is chest pain-free, denies any lightheadedness or dizziness. On arrival to the ED patient's EKG is concerning for third-degree heart block, his blood pressure is stable, he is saturating well on room air, heart rate is 38 on my initial assessment. ROS: -Cardio: Bradycardia *10 point review systems was conducted and is otherwise negative unless stated above *Outpatient medications and allergy history reviewed PE: General: Alert, NAD HEENT: Normocephalic, atraumatic Eyes: Extraocular eye movement is intact, no scleral erythema Pulmonary: Clear to auscultation bilaterally, no wheezing Cardio: Bradycardic rate and regular rhythm GI: Abdomen is soft, nontender : No suprapubic tenderness MSK: No evidence of trauma or malformation of the extremities, no edema Skin: No evidence of rash Neuro: Alert, no focal deficits Psychiatric: Cooperative classroom monitor: - An order was placed for continuous cardiac monitoring - Patient was noted to be in sinus rhythm with rate of 36 EKG: Rate: 38 Rhythm: Sinus bradycardia with A-V dissociation Intervals: CT not detectable, QRS 138 ms, otherwise within normal limits ST changes: No ST elevation Time: 1124 Medical Decision Making: Patient presented to the emergency department with bradycardia, this is been rel atively asymptomatic although the patient has complained of some lightheadedness over the past several weeks. He denies any chest pain, he is saturating well on room air on arrival, blood pressure is stable. Shortly after arrival IV was established, EKG obtained, patient was placed on playground monitor, lab work was sent. Case was then discussed with on-call interventional cardiology, Dr. Pena, who did evaluate the patient at the bedside here in the ED. EKG is consistent with third-degree heart block, for echocardiogram and patient will be evaluated by cardiology for possible pacemaker implantation. On my reassessment several hours later the patient continues to be resting comfortably with stable blood pressure, he is pending intervention by cardiology at the time of admission to the [facility] hospitalist service following my discussion with the on-call midlevel provider, Bryon Gould. Troponin is negative x1, patient does have hyperglycemia without evidence of DKA, creatinine is slightly elevated above baseline at 1.88, otherwise the patient is in no acute distress here in the ED. Patient was admitted in stable condition pending intervention by cardiology. Critical care time: 35 minutes -Management of complex medical condition/third-degree heart block requiring emergent consultation with interventional cardiology, interpretation of diagnostic studies including EKG, time spent at the bedside, arrangement of admission Diagnosis: 1. Third-degree heart block 2. Elevated creatinine 3. Hyperglycemia without DKA Disposition: Admission Keshav Suresh DO Emergency Medicine Past Med/Surg History Medical History BPH (benign prostatic hyperplasia) BPH with obstruction/lower urinary tract symptoms Cardiac murmur as a child Chronic back pain DM (diabetes mellitus), type 2 IDDM History of renal failure unsure stage. does not follow w/ systems mgr. monitoring with PCP HTN (hypertension) Hypertension Hyperthyroidism TIFFANY (obstructive sleep apnea) non-compliance Osteoarthritis Pancreatitis pt denies Pleomorphic adenoma of parotid gland Poor historian Uncontrolled type 2 diabetes mellitus Surgical History History of colonoscopy History of surgery HISTORY OF RADIO FREQ DENERVATION IN PAST. Family History Father Diabetes Blood disorder Grandmother (Maternal) Diabetes Brother Cancer of spleen Other No family history of adverse response to anesthesia Denies family history of Ovarian cancer Prostate cancer Myocardial infarction Breast cancer Colorectal cancer Social History Smoking Status: Former smoker Cigarettes Per Day: HX OF 2PPD X 20 YEARS, ~2017; Second Hand Exposure: Yes ( A CHILD); Hx Alcohol Use: No Hx Substance Use: No Preferred Language: Swiss Communication Ability: Effective Visual Impairment: No Limitations Hearing Ability: Normal Surgical Territory Manager Required: No Beliefs That Will Affect Care: None marital status: Current Living Situation: Spouse current occupational status: retired Feels Safe at Home: Yes Childhood Exposure to Second-Hand Smoke: Yes caffeine: Yes Dental Care, Regularly: No Physical Activity Frequency: 3-4 Times per Week Seatbelt Use: always Sunscreen Use: Yes Assistive Devices: Glasses Allergies Allergies Allergy/AdvReac Type Severity Reaction Status Date / Time Corticosteroids Allergy Severe SWELLING, Verified 10/26/21 13:39 (Glucocorticoids) HIVES AFTER KIDNEY ISSUES Penicillins Allergy Mild RASH Verified 10/26/21 13:39 Home Meds Home Medications Medication Instructions Recorded Confirmed aloe vera 25 mg capsule 1 cap PO QAM 03/06/18 10/26/21 garlic 1,000 mg capsule 3,000 mg PO DAILY 03/06/18 10/26/21 vitamin E 1,000 unit capsule 1,000 unit PO DAILY 03/06/18 10/26/21 cranberry concentrate-ascorbic 1 cap PO QAM cap 05/10/19 10/26/21 acid 4,200 mg-20 mg capsule aspirin 81 mg tablet,delayed 81 mg PO DAILY 05/04/20 10/26/21 release lancets 30 gauge (OneTouch Delica #25 ea 10/25/20 10/26/21 Lancets) insulin aspart U-100 100 unit/mL 30 unit SUBCUT DAILY 10/26/21 10/26/21 subcutaneous solution (Novolog U-100 Insulin aspart) Previous Rx's Medication Instructions Recorded insulin glargine 100 unit/mL 55 unit SUBCUT DAILY #5 vial 04/06/20 subcutaneous solution (Lantus U-100 Insulin) blood sugar diagnostic #400 ea 01/30/21 hydrochlorothiazide 12.5 mg tablet 12.5 mg PO QAM #90 tab 05/08/21 lisinopril 20 mg tablet 20 mg PO HS #90 tab 05/29/21 modafinil 200 mg tablet (Provigil) 200 mg PO QAM #90 tab 06/14/21 insulin syringe-needle U-100 1 mL #400 ea 07/31/21 30 gauge x 1/2" (BD Insulin Syringe Ultra-Fine) methimazole 10 mg tablet 10 mg PO Q OTHER DAY #45 tab 10/11/21 Results & Data (ED) Vital Signs Vital Signs - 24 hr 10/26/21 11:31 10/26/21 11:33 10/26/21 11:35 Pulse Rate 37 L 38 L Pulse Rate [Finger] Pulse Rate from SpO2 Sensor 39 L Respiratory Rate 12 18 Respiratory Effort / Characteristics Non-Labored Spontaneous Respiratory Depth Normal Respiratory Pattern Regular Blood Pressure 176/64 H 176/64 H Blood Pressure [Right Arm] Blood Pressure Mean 101 101 Blood Pressure Mean [Right Arm] Blood Pressure Position Sitting Pulse Oximetry 96 97 Oxygen Delivery Method Room Air Room Air Sepsis Recent Fever Within 48 Hours No Sepsis New/Unexplained Change in Mental Status No Sepsis Action Taken by Nursing No Action Required 10/26/21 11:45 10/26/21 12:01 10/26/21 12:15 Pulse Rate 36 L 37 L 35 L Pulse Rate [Finger] Pulse Rate from SpO2 Sensor 36 L 38 L 35 L Respiratory Rate 14 12 15 Respiratory Effort / Characteristics Respiratory Depth Respiratory Pattern Blood Pressure 142/56 H 156/58 H 133/70 Blood Pressure [Right Arm] Blood Pressure Mean 84 90 91 Blood Pressure Mean [Right Arm] Blood Pressure Position Pulse Oximetry 96 93 92 Oxygen Delivery Method Sepsis Recent Fever Within 48 Hours Sepsis New/Unexplained Change in Mental Status Sepsis Action Taken by Nursing 10/26/21 12:35 10/26/21 12:45 10/26/21 13:01 Pulse Rate 35 L 35 L 35 L Pulse Rate [Finger] Pulse Rate from SpO2 Sensor 35 L 34 L 37 L Respiratory Rate 16 12 14 Respiratory Effort / Characteristics Respiratory Depth Respiratory Pattern Blood Pressure 127/62 118/63 101/63 Blood Pressure [Right Arm] Blood Pressure Mean 83 81 75 Blood Pressure Mean [Right Arm] Blood Pressure Position Pulse Oximetry 91 93 92 Oxygen Delivery Method Sepsis Recent Fever Within 48 Hours Sepsis New/Unexplained Change in Mental Status Sepsis Action Taken by Nursing 10/26/21 13:15 10/26/21 13:31 10/26/21 13:46 Pulse Rate 34 L 34 L 34 L Pulse Rate [Finger] Pulse Rate from SpO2 Sensor 34 L 35 L 34 L Respiratory Rate 12 17 11 L Respiratory Effort / Characteristics Respiratory Depth Respiratory Pattern Blood Pressure 119/61 133/66 118/62 Blood Pressure [Right Arm] Blood Pressure Mean 80 88 80 Blood Pressure Mean [Right Arm] Blood Pressure Position Pulse Oximetry 91 92 91 Oxygen Delivery Method Sepsis Recent Fever Within 48 Hours Sepsis New/Unexplained Change in Mental Status Sepsis Action Taken by Nursing 10/26/21 14:01 10/26/21 14:15 10/26/21 14:30 Pulse Rate 34 L 34 L 34 L Pulse Rate [Finger] Pulse Rate from SpO2 Sensor 34 L 34 L 34 L Respiratory Rate 15 19 17 Respiratory Effort / Characteristics Respiratory Depth Respiratory Pattern Blood Pressure 132/70 128/73 148/80 H Blood Pressure [Right Arm] Blood Pressure Mean 90 91 102 Blood Pressure Mean [Right Arm] Blood Pressure Position Pulse Oximetry 92 93 94 Oxygen Delivery Method Sepsis Recent Fever Within 48 Hours Sepsis New/Unexplained Change in Mental Status Sepsis Action Taken by Nursing 10/26/21 14:46 10/26/21 15:30 Pulse Rate 35 L Pulse Rate [Finger] 36 L Pulse Rate from SpO2 Sensor 36 L Respiratory Rate 17 18 Respiratory Effort / Characteristics Respiratory Depth Respiratory Pattern Blood Pressure 120/66 Blood Pressure [Right Arm] 170/76 H Blood Pressure Mean 84 Blood Pressure Mean [Right Arm] 107 Blood Pressure Position Pulse Oximetry 94 93 Oxygen Delivery Method Room Air Sepsis Recent Fever Within 48 Hours Sepsis New/Unexplained Change in Mental Status Sepsis Action Taken by Nursing Laboratory Data Result diagrams: 10/26/21 11:38 10/26/21 11:38 Lab Results 10/26/21 10/26/21 10/26/21 Range/Units 11:38 11:38 11:38 WBC 10.34 (4.8-10.8) K/uL RBC 5.18 (4.7-6.1) M/uL Hgb 16.2 (14.0-18.0) g/dL Hct 46.8 (42-52) % MCV 90.3 (80-100) fL MCH 31.3 (25-34) pg MCHC 34.6 (32-36) g/dL RDW Std Deviation 51.0 H (36.4-46.3) fL RDW Coeff of [place] 15.2 H (11.5-14.5) % Plt Count 321 (130-400) K/uL MPV 10.2 (7.4-10.4) fL Immature Gran % (Auto) 0.3 % Neut % (Auto) 67.4 % Lymph % (Auto) 18.8 % [place] % (Auto) 11.8 % Eos % (Auto) 1.5 % Baso % (Auto) 0.2 % Neut # (Auto) 6.97 H (1.4-6.5) K/uL Lymph # (Auto) 1.94 (1.2-3.4) K/uL [place] # (Auto) 1.22 H (0.11-0.59) K/uL Eos # (Auto) 0.16 (0-0.5) K/uL Baso # (Auto) 0.02 (0-0.2) K/uL Immature Gran # (Auto) 0.03 H (0.00-0.02) K/uL PT 11.0 (9.0-12.0) Seconds INR 1.0 (0.9-1.1) APTT 25.9 (21.0-31.0) Seconds PTT Ratio 0.9 Sodium (136-145) mmol/L Potassium (3.5-5.1) mmol/L Chloride (98-107) mmol/L Carbon Dioxide (21-32) mmol/L Anion Gap (3-11) BUN (6-23) mg/dl Creatinine (0.6-1.4) mg/dl Est Cr Clr Drug Dosing ml/min Est GFR ( Amer) ml/min Est GFR (Non-Af Amer) ml/min BUN/Creatinine Ratio (10-20) Glucose (70-99(Fasting)) mg/dl Calcium (8.5-10.1) mg/dl Total Bilirubin (0.2-1.0) mg/dl AST (13-39) U/L ALT (7-52) U/L Alkaline Phosphatase (34-104) U/L Troponin I High Sens 7.7 (0-20) pg/ml Total Protein (6.0-8.3) gm/dl Albumin (3.4-5.0) gm/dl Globulin (2.5-4.0) gm/dl Albumin/Globulin Ratio (0.9-2) Lipase (11-82) U/L SARS-CoV-2, RNA, NAAT (NEGATIVE) 10/26/21 10/26/21 Range/Units 11:38 14:40 WBC (4.8-10.8) K/uL RBC (4.7-6.1) M/uL Hgb (14.0-18.0) g/dL Hct (42-52) % MCV (80-100) fL MCH (25-34) pg MCHC (32-36) g/dL RDW Std Deviation (36.4-46.3) fL RDW Coeff of [place] (11.5-14.5) % Plt Count (130-400) K/uL MPV (7.4-10.4) fL Immature Gran % (Auto) % Neut % (Auto) % Lymph % (Auto) % [place] % (Auto) % Eos % (Auto) % Baso % (Auto) % Neut # (Auto) (1.4-6.5) K/uL Lymph # (Auto) (1.2-3.4) K/uL [place] # (Auto) (0.11-0.59) K/uL Eos # (Auto) (0-0.5) K/uL Baso # (Auto) (0-0.2) K/uL Immature Gran # (Auto) (0.00-0.02) K/uL PT (9.0-12.0) Seconds INR (0.9-1.1) APTT (21.0-31.0) Seconds PTT Ratio Sodium 133 L (136-145) mmol/L Potassium 5.0 (3.5-5.1) mmol/L Chloride 101 (98-107) mmol/L Carbon Dioxide 23 (21-32) mmol/L Anion Gap 9 (3-11) BUN 38 H (6-23) mg/dl Creatinine 1.88 H (0.6-1.4) mg/dl Est Cr Clr Drug Dosing 49.1 ml/min Est GFR ( Amer) 41.3 ml/min Est GFR (Non-Af Amer) 35.6 ml/min BUN/Creatinine Ratio 20.2 H (10-20) Glucose 311 H* (70-99(Fasting)) mg/dl Calcium 9.5 (8.5-10.1) mg/dl Total Bilirubin 0.7 (0.2-1.0) mg/dl AST 24 (13-39) U/L ALT 53 H (7-52) U/L Alkaline Phosphatase 64 (34-104) U/L Troponin I High Sens (0-20) pg/ml Total Protein 7.1 (6.0-8.3) gm/dl Albumin 4.4 (3.4-5.0) gm/dl Globulin 2.7 (2.5-4.0) gm/dl Albumin/Globulin Ratio 1.6 (0.9-2) Lipase 23 (11-82) U/L SARS-CoV-2, RNA, NAAT NEGATIVE (NEGATIVE) Administered Medications Discontinued Medications Bacitracin (Bacitracin Oint 0.9 Gm Pkt) Confirm Administered Dose 1 appln .ROUTE .STK-MED ONE Stop: 10/26/21 15:27 Last Admin: 10/26/21 16:05 Dose: Not Given Documented by: [id number] Clindamycin Phosphate (Cleocin/D5w) 600 mg in 50 mls @ 100 mls/hr IV NOW ONE Stop: 10/26/21 15:56 Last Infusion: 10/26/21 16:26 Dose: 0 mls/hr Documented by: [id number] Admin: 10/26/21 15:54 Dose: 100 mls/hr Documented by: [id number] Lidocaine HCl (Lidocaine 1% Local 20 Ml Vial) Confirm Administered Dose 40 ml .ROUTE .STK-MED ONE Stop: 10/26/21 15:27 Last Admin: 10/26/21 16:05 Dose: Not Given Documented by: [id number] Sterile Water (Water, Sterile For Inj 10 Ml Vial) Confirm Administered Dose 10 ml .ROUTE .STK-MED ONE Stop: 10/26/21 15:27 Last Admin: 10/26/21 16:06 Dose: Not Given Documented by: [id number] Vancomycin HCl (Vancomycin Hcl 1000mg/20ml Vial) Confirm Administered Dose 50 mg .ROUTE .STK-MED ONE Stop: 10/26/21 15:27 Last Admin: 10/26/21 16:06 Dose: Not Given Documented by: [id number] Imaging Data Radiologist's Impression: Chest X-Ray 10/26/21 11:29 XR chest 1V portable HISTORY: Atypical Chest Pain COMPARISON: Chest 08/27/2008. FINDINGS: No pneumothorax. No pleural effusions. The cardiac silhouette is mildly enlarged. This remains unchanged. No focal lung consolidations to suggest pneumonia. No evidence for pulmonary edema. No acute rib fractures. IMPRESSION: Stable mild cardiomegaly. ACT 112: Negative or not required by law. Electronically signed by: Alan Barcenas M.D. 10/26/2021 12:02 PM Discharge Plan Visit Data Chief Complaint: Bradycardia Stated Complaint: BRADYCARDIA ED Provider: Keshav Suresh Discharge Problem: Heart block Forms Stand Alone Forms: [facility]attva Prescriptions Prescriptions: No Action (DME) blood sugar diagnostic Strip See Dose Instructions .ROUTE .MEDSUPPLY Qty: 400 RF: 3 hydrochlorothiazide 12.5 mg tablet 12.5 mg PO QAM Qty: 90 RF: 3 lisinopril 20 mg tablet 20 mg PO HS Qty: 90 RF: 3 modafinil [Provigil] 200 mg tablet 200 mg PO QAM Qty: 90 RF: 1 (DME) insulin syringe-needle U-100 [BD Insulin Syringe Ultra-Fine] 1 mL 30 gauge x 1/2" syringe See Rx Instructions .ROUTE .MEDSUPPLY Qty: 400 RF: 3 methimazole 10 mg tablet 10 mg PO Q OTHER DAY Qty: 45 RF: 3 (DME) lancets [OneTouch Delica Lancets] 30 gauge misc See Rx Instructions .ROUTE .MEDSUPPLY Qty: 25 RF: 0 cranberry conc-ascorbic acid 4,200-20 mg capsule 1 cap PO QAM RF: 0 Lantus U-100 Insulin 100 unit/mL solution 55 unit subcut DAILY Qty: 5 RF: 3 aspirin 81 mg tablet,delayed release (DR/EC) 81 mg PO DAILY RF: 0 vitamin E 1,000 unit Capsule 1,000 unit PO DAILY RF: 0 garlic 1,000 mg Capsule 3,000 mg PO DAILY RF: 0 aloe vera 25 mg Capsule 1 cap PO QAM RF: 0 insulin aspart U-100 [Novolog U-100 Insulin aspart] 100 unit/mL solution 30 unit subcut DAILY RF: 0 Referrals Referrals: Viral Lai DO [Primary Care Provider] -
[2021-10-26 12:00] LABS: Basophils # (auto) 0.02 K/uL (0-0.2); Basophils % (auto) 0.2 %; Eosinophils # (auto) 0.16 K/uL (0-0.5); Eosinophils % (auto) 1.5 %; Hematocrit (blood only) 46.8 % (42-52); Hemoglobin 16.2 g/dL (14.0-18.0); Immature Granulocytes # (auto) 0.03 K/uL (0.00-0.02); Immature Granulocytes % (auto) 0.3 %; Lymphocytes # (auto) 1.94 K/uL (1.2-3.4); Lymphocytes % (auto) 18.8 %; Mean Corpuscular Hemoglobin 31.3 pg (25-34); Mean Corpuscular Hgb Conc 34.6 g/dL (32-36); Mean Corpuscular Volume 90.3 fL (80-100); Mean Platelet Volume 10.2 fL (7.4-10.4); Monocytes # (auto) 1.22 K/uL (0.11-0.59); Monocytes % (auto) 11.8 %; Neutrophils # (auto) 6.97 K/uL (1.4-6.5); Neutrophils % (auto) 67.4 %; Platelet Count 321 K/uL (130-400); RDW Coefficient of Variation 15.2 % (11.5-14.5); Red Blood Count 5.18 M/uL (4.7-6.1); White Blood Count 10.34 K/uL (4.8-10.8)
--- NOTE | 2021-10-26 12:03 | XRay Report ---
XR chest 1V portable HISTORY: Atypical Chest Pain COMPARISON: Chest 08/27/2008. FINDINGS: No pneumothorax. No pleural effusions. The cardiac silhouette is mildly enlarged. This maribel ins unchanged. No focal lung consolidations to suggest pneumonia. No evidence for pulmonary edema. No acute rib fractures. IMPRESSION: Stable mild cardiomegaly. ACT 112: Negative or not required by law. Electronically signed by: Alan Barcenas M.D. 10/26/2021 12:02 PM
[2021-10-26 12:04] LABS: Partial Thromboplastin Ratio 0.9; Partial Thromboplastin Time 25.9 Seconds (21.0-31.0)
[2021-10-26 14:33] LABS: Albumin Globulin Ratio 1.6 (0.9-2); Albumin Level 4.4 gm/dl (3.4-5.0); BUN Creatinine Ratio 20.2 (10-20); Bilirubin,Total 0.7 mg/dl (0.2-1.0); Calcium 9.5 mg/dl (8.5-10.1); Creatinine Clr Calc Pharmacy 49.1 ml/min; Est GFR (African American) 41.3 ml/min; Est GFR (Non-African American) 35.6 ml/min; Globulin 2.7 gm/dl (2.5-4.0); Total Protein 7.1 gm/dl (6.0-8.3)
[2021-10-26] MEDS ORDERED: WATER, STERILE FOR INJ 10 ML VIAL ONE (15:26)
[2021-10-26] MEDS ORDERED: LIDOCAINE 1% LOCAL 20 ML VIAL ONE (15:26)
[2021-10-26] MEDS ORDERED: BACITRACIN OINT 0.9 GM PKT ONE (15:26)
[2021-10-26] MEDS ORDERED: VANCOMYCIN HCL 1000MG/20ML VIAL ONE (15:26)
[2021-10-26] MEDS ORDERED: CLINDAMYCIN/D5W 600 MG/50 ML BAG IV ONE (15:27)
--- NOTE | 2021-10-26 15:36 | History & Physical Report ---
Date of Service October 26, 2021 Assessment & Plan (1) AV dissociation: Plan: NPO- cardiology consulted for PPM - sanitarian to suite - To PCU following procedure or ICU if needed (2) HTN (hypertension): Plan: Controlled- will hold YOCASTA with HOMER - follow (3) Uncontrolled type 2 diabetes mellitus: Plan: NPO for now- can have carb consistent diet following procedure - Continue with daily basal insulin - sliding scale aspart insulin CF 20 CF 1:12 (4) Hyperlipidemia: Plan: Continue statin (5) Narcolepsy: Plan: Continue modafinil (6) Hyperthyroidism: Plan: Continue methimazole (7) Lower extremity edema: Plan: Bilateral - hold diuretics at this time- evaluate in AM (8) HOMER (acute kidney injury): Plan: HOMER II on CKD III- 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 Patient coems to the EMD today from referral from PCP office secondary to bradycardia and concern of HDHB. Patient states that he was sent to his endorcrinologist office on for fatigue- refrigeration technician was concerned for his increased dyspnea- he was referred back to his PCP where he was evaluated today and noted to be in in 3rd degree AV block. In the EMD the patient had routine labs performed and ECG. Interventional/EP cardiology was notified. 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 Patient will be admitted to PCU following placement. 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 He has history of Graves disease, and is on Methimazole sefl adjusted to 10mg every other day and does follow with endocrinology. He Denies any history of heart failure but is edematous in his legs and on diuretic therapy. He endorses that mass on the right side of his jaw is an infected hair, that has been trapped for many years- had evalaution and does not want the surgical procedure to explore or remove- because of the destination where this would be done at. COVID test on admission is: NEGATIVE Allergies Allergy/AdvReac Type Severity Reaction Status Date / Time Corticosteroids Allergy Severe SWELLING, Verified 10/26/21 13:39 (Glucocorticoids) HIVES AFTER KIDNEY ISSUES Penicillins Allergy Mild RASH Verified 10/26/21 13:39 Home Medications Medication Instructions Recorded Confirmed Type aloe vera 25 mg capsule 1 cap PO QAM 03/06/18 10/26/21 History garlic 1,000 mg capsule 3,000 mg PO DAILY 03/06/18 10/26/21 History vitamin E 1,000 unit capsule 1,000 unit PO DAILY 03/06/18 10/26/21 History cranberry concentrate-ascorbic 1 cap PO QAM cap 05/10/19 10/26/21 History acid 4,200 mg-20 mg capsule insulin glargine 100 unit/mL 55 unit SUBCUT DAILY #5 vial 04/06/20 10/26/21 Rx subcutaneous solution (Lantus U-100 Insulin) aspirin 81 mg tablet,delayed 81 mg PO DAILY 05/04/20 10/26/21 History release lancets 30 gauge (OneTouch Delica #25 ea 10/25/20 10/26/21 History Lancets) blood sugar diagnostic #400 ea 01/30/21 10/26/21 Rx lisinopril 20 mg tablet 20 mg PO HS #90 tab 05/29/21 10/26/21 Rx modafinil 200 mg tablet (Provigil) 200 mg PO QAM #90 tab 06/14/21 10/26/21 Rx insulin syringe-needle U-100 1 mL #400 ea 07/31/21 10/26/21 Rx 30 gauge x 1/2" (BD Insulin Syringe Ultra-Fine) methimazole 10 mg tablet 10 mg PO Q OTHER DAY #45 tab 10/11/21 10/26/21 Rx insulin aspart U-100 100 unit/mL 30 unit SUBCUT DAILY 10/26/21 10/26/21 History subcutaneous solution (Novolog U-100 Insulin aspart) hydrochlorothiazide 12.5 mg tablet 12.5 mg PO DAILY #30 tab 10/27/21 Rx Past Med/Surg History Medical History BPH (benign prostatic hyperplasia) BPH with obstruction/lower urinary tract symptoms Cardiac murmur as a child Chronic back pain DM (diabetes mellitus), type 2 IDDM History of renal failure unsure stage. does not follow w/ template reproduction technician. monitoring with PCP HTN (hypertension) Hypertension Hyperthyroidism TIFFANY (obstructive sleep apnea) non-compliance Osteoarthritis Pancreatitis pt denies Pleomorphic adenoma of parotid gland Poor historian Uncontrolled type 2 diabetes mellitus Surgical History History of colonoscopy History of surgery HISTORY OF RADIO FREQ DENERVATION IN PAST. Family History Father Diabetes Blood disorder Grandmother (Maternal) Diabetes Brother Cancer of spleen Other No family history of adverse response to anesthesia Denies family history of Ovarian cancer Prostate cancer Myocardial infarction Breast cancer Colorectal cancer Social History Smoking Status: Former smoker Cigarettes Per Day: HX OF 2PPD X 20 YEARS, ~2017; Second Hand Exposure: Yes ( A CHILD); Hx Alcohol Use: No Hx Substance Use: No Preferred Language: Luxembourger Communication Ability: Effective Visual Impairment: No Limitations Hearing Ability: Normal Infection Control Coordinator Required: No Beliefs That Will Affect Care: None marital status: Current Living Situation: Spouse current occupational status: retired Feels Safe at Home: Yes Childhood Exposure to Second-Hand Smoke: Yes caffeine: Yes Dental Care, Regularly: No Physical Activity Frequency: 3-4 Times per Week Seatbelt Use: always Sunscreen Use: Yes Assistive Devices: Glasses Review of Systems Review of Systems: REVIEW OF SYSTEMS: Constitutional: No fever, sweats or chills Eyes: No diplopia, no worsening or blurred vision ENT: normal hearing, no trouble swallowing Respiratory:(+) dyspnea, with humid days, No cough, sputum, dyspnea at rest or on exertion Cardiovascular: (+) dizziness today, edema of bilateral lower extremities No chest pain, tightness or palpitations Abdomen: No pain, nausea, vomiting, diarrhea or constipation Musculoskeletal: (+) chronic back pain, No joint pain, calf pain, swelling Neurologic: No weakness, numbness/tingling, or balance problems Psychiatric: No anxiety or depression Skin: No rash or itch Physical Exam Physical Exam: PHYSICAL EXAM: General: awake, alert, no apparent distress Head: Normocephalic, atraumatic ENT: Right parotid mass to right TMJ/submandibular, hard non-mobile. PERRL, EOMI, no pharyngeal exudate, mucous membranes moist Neuro: AAO x 3, speech clear and appropriate, strength intact bilaterally 5/5, sensation intact and equal all extremities and dermatomes, no pronator drift Chest: equal rise and fall of the chest, no accessory muscle use, no heaves or thirlls, Clear to auscultation, on room air, Cardiac: Regular rate and rhythm, telemetry reviewed- high degree AB dissacoiation, skin warm dry, cap refill <3 seconds, peripheral pulses +2 no JVD , no murmur,+3 pitting edmea to bilateral lower extremities to knees GI: NABS x 4 quadrants, soft, nontender to palpation, no rebound, guarding or tenderness : Spontaneously voiding, no pain, no CVA tenderness, Extremities: Normal inspection, no peripheral edema or erythema, calfs nontender to palpation Psych: Normal mood and affect Skin: no rash or erythema Results & Data Results & Data ([facility]) Vital Signs (Past 12 Hours) Vital Signs Pulse Resp BP Pulse Ox 10/26/21 14:46 35 L 17 120/66 94 10/26/21 14:30 34 L 17 148/80 H 94 10/26/21 14:15 34 L 19 128/73 93 10/26/21 14:01 34 L 15 132/70 92 10/26/21 13:46 34 L 11 L 118/62 91 10/26/21 13:31 34 L 17 133/66 92 10/26/21 13:15 34 L 12 119/61 91 10/26/21 13:01 35 L 14 101/63 92 10/26/21 12:45 35 L 12 118/63 93 10/26/21 12:35 35 L 16 127/62 91 10/26/21 12:15 35 L 15 133/70 92 10/26/21 12:01 37 L 12 156/58 H 93 10/26/21 11:45 36 L 14 142/56 H 96 10/26/21 11:33 38 L 18 176/64 H 97 10/26/21 11:31 37 L 12 176/64 H 96 Laboratory Results Laboratory Results - last 24 hr 10/26/21 10/26/21 10/26/21 11:38 11:38 11:38 WBC 10.34 RBC 5.18 Hgb 16.2 Hct 46.8 MCV 90.3 MCH 31.3 MCHC 34.6 RDW Std Deviation 51.0 H RDW Coeff of [place] 15.2 H Plt Count 321 MPV 10.2 Immature Gran % (Auto) 0.3 Neut % (Auto) 67.4 Lymph % (Auto) 18.8 [place] % (Auto) 11.8 Eos % (Auto) 1.5 Baso % (Auto) 0.2 Neut # (Auto) 6.97 H Lymph # (Auto) 1.94 [place] # (Auto) 1.22 H Eos # (Auto) 0.16 Baso # (Auto) 0.02 Immature Gran # (Auto) 0.03 H PT 11.0 INR 1.0 APTT 25.9 PTT Ratio 0.9 Sodium Potassium Chloride Carbon Dioxide Anion Gap BUN Creatinine Est Cr Clr Drug Dosing Est GFR ( Amer) Est GFR (Non-Af Amer) BUN/Creatinine Ratio Glucose Calcium Total Bilirubin AST ALT Alkaline Phosphatase Troponin I High Sens 7.7 Total Protein Albumin Globulin Albumin/Globulin Ratio Lipase SARS-CoV-2, RNA, NAAT 10/26/21 10/26/21 11:38 14:40 WBC RBC Hgb Hct MCV MCH MCHC RDW Std Deviation RDW Coeff of [place] Plt Count MPV Immature Gran % (Auto) Neut % (Auto) Lymph % (Auto) [place] % (Auto) Eos % (Auto) Baso % (Auto) Neut # (Auto) Lymph # (Auto) [place] # (Auto) Eos # (Auto) Baso # (Auto) Immature Gran # (Auto) PT INR APTT PTT Ratio Sodium 133 L Potassium 5.0 Chloride 101 Carbon Dioxide 23 Anion Gap 9 BUN 38 H Creatinine 1.88 H Est Cr Clr Drug Dosing 49.1 Est GFR ( Amer) 41.3 Est GFR (Non-Af Amer) 35.6 BUN/Creatinine Ratio 20.2 H Glucose 311 H* Calcium 9.5 Total Bilirubin 0.7 AST 24 ALT 53 H Alkaline Phosphatase 64 Troponin I High Sens Total Protein 7.1 Albumin 4.4 Globulin 2.7 Albumin/Globulin Ratio 1.6 Lipase 23 SARS-CoV-2, RNA, NAAT NEGATIVE Diagnostic Findings Chest X-Ray 10/26/21 11:29 XR chest 1V portable HISTORY: Atypical Chest Pain COMPARISON: Chest 08/27/2008. FINDINGS: No pneumothorax. No pleural effusions. The cardiac silhouette is mildly enlarged. This remains unchanged. No focal lung consolidations to suggest pneumonia. No evidence for pulmonary edema. No acute rib fractures. IMPRESSION: Stable mild cardiomegaly. ACT 112: Negative or not required by law. Electronically signed by: Alan Barcenas M.D. 10/26/2021 12:02 PM Medications Administered Home Medications aloe vera 25 mg capsule 1 cap PO QAM 03/06/18 [History Confirmed 10/26/21] garlic 1,000 mg capsule 3,000 mg PO DAILY 03/06/18 [History Confirmed 10/26/21] vitamin E 1,000 unit capsule 1,000 unit PO DAILY 03/06/18 [History Confirmed 10/26/21] cranberry concentrate-ascorbic acid 4,200 mg-20 mg capsule 1 cap PO QAM cap 05/10/19 [History Confirmed 10/26/21] insulin glargine 100 unit/mL subcutaneous solution (Lantus U-100 Insulin) 55 unit SUBCUT DAILY #5 vial 04/06/20 [Rx Confirmed 10/26/21] aspirin 81 mg tablet,delayed release 81 mg PO DAILY 05/04/20 [History Confirmed 10/26/21] lancets 30 gauge (OneTouch Delica Lancets) #25 ea 10/25/20 [History Confirmed 10/26/21] blood sugar diagnostic #400 ea 01/30/21 [Rx Confirmed 10/26/21] hydrochlorothiazide 12.5 mg tablet 12.5 mg PO QAM #90 tab 05/08/21 [Rx Confirmed 10/26/21] lisinopril 20 mg tablet 20 mg PO HS #90 tab 05/29/21 [Rx Confirmed 10/26/21] modafinil 200 mg tablet (Provigil) 200 mg PO QAM #90 tab 06/14/21 [Rx Confirmed 10/26/21] insulin syringe-needle U-100 1 mL 30 gauge x 1/2" (BD Insulin Syringe Ultra- Fine) #400 ea 07/31/21 [Rx Confirmed 10/26/21] methimazole 10 mg tablet 10 mg PO Q OTHER DAY #45 tab 10/11/21 [Rx Confirmed 10/26/21] insulin aspart U-100 100 unit/mL subcutaneous solution (Novolog U-100 Insulin aspart) 30 unit SUBCUT DAILY 10/26/21 [History Confirmed 10/26/21] Active Medications Clindamycin Phosphate (Cleocin/D5w) 600 mg in 50 mls @ 100 mls/hr IV NOW ONE Stop: 10/26/21 15:56 ECG Additional Comments: Marked sinus bradycardia with A-V dissociation and Idioventricular rhythm Left axis deviation Right bundle branch block Abnormal ECG When compared with ECG of 13-DEC-2015 18:20, Idioventricular rhythm has replaced Sinus rhythm Vent. rate has decreased BY 23 BPM Code Status & VTE Plan VTE Prophylaxis Plan VTE Prophylaxis will be ordered: Yes Supervising Physician Co-Signing Physician Notes Patient seen and examined at bedside. Obtained a physical examination and history during face to face encounter. I discussed plan of care with SERAFIN Gould I reviewed above note and agree with it. PATIENT ADMITTED FOR AV DISSOCIATION. PATIENT will likely need pacemaker. PG Care Time/CCT Total # of Minutes Spent Total Time Spent with Patient: Total time spent is greater than 50% in coordination of care (as documented) at patient's floor/unit and/or counseling patient: Coding Level of Care Code 31036 Initial Inpt Care Lvl 3 Diagnoses AV dissociation I45.89 HTN (hypertension) I10 Uncontrolled type 2 diabetes mellitus E11.65 Hyperlipidemia E78.5 Narcolepsy G47.419 Hyperthyroidism E05.90 Lower extremity edema R60.0 HOMER (acute kidney injury) N17.9
--- NOTE | 2021-10-26 16:47 | XCELERA ---
[id number] [id number]
[2021-10-26] MEDS ORDERED: MIDAZOLAM HCL 5 MG/ML 1 ML VIAL ONE (16:57)
[2021-10-26] MEDS ORDERED: fentaNYL citrate 100 MCG/2 ML VIAL ONE (16:58)
--- NOTE | 2021-10-26 17:05 | Cardiology Consultation ---
Date of Consultation October 26, 2021 Assessment & Plan (1) Heart block: 1. Complete heart block: He arrives with complete heart block with no clear explanation or cause for it. It is most likely due to intrinsic conduction system disease. There is not appear to be a reversible cause therefore he should have a pacemaker implanted. I discussed the indications, procedure, risks and alternatives of pacemaker implantation with him and he understands and agrees to proceed. Consent obtained. I also discussed conscious sedation with him and he is agreeable. Consent obtained. History of Present Illness Reason for Consultation: Complete heart block History of Present Illness This is a 71-year-old male with a history of hypertension, diabetes mellitus and obesity who was recently identified with bradycardia and was sent to the emergency room. Based on his symptoms he has not had bradycardia before, but he does not have a lot of symptoms during it although he does occasionally get dizziness. On my evaluation the emergency room he was without specific complaints. His home medications include hydrochlorothiazide, lisinopril and some diabetes medications but no AV leigh blocking medications. Allergies Allergy/AdvReac Type Severity Reaction Status Date / Time Corticosteroids Allergy Severe SWELLING, Verified 10/26/21 13:39 (Glucocorticoids) HIVES AFTER KIDNEY ISSUES Penicillins Allergy Mild RASH Verified 10/26/21 13:39 Home Medications Medication Instructions Recorded Confirmed Type aloe vera 25 mg capsule 1 cap PO QAM 03/06/18 10/26/21 History garlic 1,000 mg capsule 3,000 mg PO DAILY 03/06/18 10/26/21 History vitamin E 1,000 unit capsule 1,000 unit PO DAILY 03/06/18 10/26/21 History cranberry concentrate-ascorbic 1 cap PO QAM cap 05/10/19 10/26/21 History acid 4,200 mg-20 mg capsule insulin glargine 100 unit/mL 55 unit SUBCUT DAILY #5 vial 04/06/20 10/26/21 Rx subcutaneous solution (Lantus U-100 Insulin) aspirin 81 mg tablet,delayed 81 mg PO DAILY 05/04/20 10/26/21 History release lancets 30 gauge ([place]usuch [place]on[place] #25 ea 10/25/20 10/26/21 History Lancets) blood sugar diagnostic #400 ea 01/30/21 10/26/21 Rx hydrochlorothiazide 12.5 mg tablet 12.5 mg PO QAM #90 tab 05/08/21 10/26/21 Rx lisinopril 20 mg tablet 20 mg PO HS #90 tab 05/29/21 10/26/21 Rx modafinil 200 mg tablet (Provigil) 200 mg PO QAM #90 tab 06/14/21 10/26/21 Rx insulin syringe-needle U-100 1 mL #400 ea 07/31/21 10/26/21 Rx 30 gauge x 1/2" (BD Insulin Syringe Ultra-Fine) methimazole 10 mg tablet 10 mg PO Q OTHER DAY #45 tab 10/11/21 10/26/21 Rx insulin aspart U-100 100 unit/mL 30 unit SUBCUT DAILY 10/26/21 10/26/21 History subcutaneous solution (Novolog U-100 Insulin aspart) Patient History Medical History BPH (benign prostatic hyperplasia) BPH with obstruction/lower urinary tract symptoms Cardiac murmur as a child Chronic back pain DM (diabetes mellitus), type 2 IDDM History of renal failure unsure stage. 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 monitoring with PCP HTN (hypertension) Hypertension Hyperthyroidism TIFFANY (obstructive sleep apnea) non-compliance Osteoarthritis Pancreatitis pt denies Pleomorphic adenoma of parotid gland Poor historian Uncontrolled type 2 diabetes mellitus Surgical History History of colonoscopy History of surgery HISTORY OF RADIO FREQ DENERVATION IN PAST. Family History Father Diabetes Blood disorder Grandmother (Maternal) Diabetes Brother Cancer of spleen Other No family history of adverse response to anesthesia Denies family history of Ovarian cancer Prostate cancer Myocardial infarction Breast cancer Colorectal cancer Social History Smoking Status: Former smoker Cigarettes Per Day: HX OF 2PPD X 20 YEARS, ~2017; Second Hand Exposure: Yes ( A CHILD); Hx Alcohol Use: No Hx Substance Use: No Preferred Language: Frisian Communication Ability: Effective Visual Impairment: No Limitations Hearing Ability: Normal Director Distribution Required: No Beliefs That Will Affect Care: None marital status: Current Living Situation: Spouse current occupational status: retired Feels Safe at Home: Yes Childhood Exposure to Second-Hand Smoke: Yes caffeine: Yes Dental Care, Regularly: No Physical Activity Frequency: 3-4 Times per Week Seatbelt Use: always Sunscreen Use: Yes Assistive Devices: Glasses Review of Systems Review of Systems: A review of systems concentrating on the cardiovascular system was performed and was notable only as in the HPI. Physical Exam Physical Exam: Constitutional: Alert, cooperative and in no distress. HEENT: Unremarkable Neck: No jugular venous distention, carotid pulses are normal and equal bilaterally without bruits. Pulmonary: Clear to auscultation bilaterally. Cardiac: Regular slow rhythm with no murmur, gallop or rub. Abdomen: Soft, nontender with normal bowel sounds. Extremities: No edema. Distal pulses intact. Neurologic: No focal findings. Skin: No rash, ecchymoses or petechiae. Results & Data ([facility]) Vital Signs (Past 12 Hours) Vital Signs Pulse Pulse Resp BP BP Pulse Ox 10/26/21 15:30 36 L 18 170/76 H 93 10/26/21 14:46 35 L 17 120/66 94 10/26/21 14:30 34 L 17 148/80 H 94 10/26/21 14:15 34 L 19 128/73 93 10/26/21 14:01 34 L 15 132/70 92 10/26/21 13:46 34 L 11 L 118/62 91 10/26/21 13:31 34 L 17 133/66 92 10/26/21 13:15 34 L 12 119/61 91 10/26/21 13:01 35 L 14 101/63 92 10/26/21 12:45 35 L 12 118/63 93 10/26/21 12:35 35 L 16 127/62 91 10/26/21 12:15 35 L 15 133/70 92 10/26/21 12:01 37 L 12 156/58 H 93 10/26/21 11:45 36 L 14 142/56 H 96 10/26/21 11:33 38 L 18 176/64 H 97 10/26/21 11:31 37 L 12 176/64 H 96 Laboratory Results Cardiac Enzymes 10/26/21 10/26/21 Range/Units 11:38 11:38 AST 24 (13-39) U/L Troponin I High Sens 7.7 (0-20) pg/ml Coagulation 10/26/21 Range/Units 11:38 PT 11.0 (9.0-12.0) Seconds APTT 25.9 (21.0-31.0) Seconds CBC 10/26/21 Range/Units 11:38 WBC 10.34 (4.8-10.8) K/uL RBC 5.18 (4.7-6.1) M/uL Hgb 16.2 (14.0-18.0) g/dL Hct 46.8 (42-52) % Plt Count 321 (130-400) K/uL Neut # (Auto) 6.97 H (1.4-6.5) K/uL Lymph # (Auto) 1.94 (1.2-3.4) K/uL [place] # (Auto) 1.22 H (0.11-0.59) K/uL Eos # (Auto) 0.16 (0-0.5) K/uL Baso # (Auto) 0.02 (0-0.2) K/uL Comprehensive Metabolic Panel 10/26/21 Range/Units 11:38 Sodium 133 L (136-145) mmol/L Potassium 5.0 (3.5-5.1) mmol/L Chloride 101 (98-107) mmol/L Carbon Dioxide 23 (21-32) mmol/L BUN 38 H (6-23) mg/dl Creatinine 1.88 H (0.6-1.4) mg/dl Glucose 311 H* (70-99(Fasting)) mg/dl Calcium 9.5 (8.5-10.1) mg/dl AST 24 (13-39) U/L ALT 53 H (7-52) U/L Alkaline Phosphatase 64 (34-104) U/L Total Protein 7.1 (6.0-8.3) gm/dl Albumin 4.4 (3.4-5.0) gm/dl Intake and Output 10/26/21 10/26/21 10/26/21 06:59 14:59 22:59 Intake Total 500 / 550 50 / 550 Balance 500 / 550 50 / 550 Intake: IV 500 / 550 50 / 550 Clindamycin/D5w 600 mg In 50 ml 50 / 50 @ 100 mls/hr IV NOW ONE Rx#: [id number] Right Antecubital 500 / 500 Other: Weight 124.7 kg Weight Measurement Method Built in [facility] Patient Weight 10/27/21 06:59 Weight 124.7 kg Diagnostic Findings ECG: Underlying sinus rhythm with complete heart block, junctional rhythm with bifascicular block, possibly a fascicular rhythm PG Care Time/CCT Total # of Minutes Spent Total Time Spent with Patient: Total time spent is greater than 50% in coordination of care (as documented) at patient's floor/unit and/or counseling patient: Coding Level of Care Code 31846 Initial Inpt Care Lvl 3 Diagnoses Heart block I45.9
--- NOTE | 2021-10-26 17:18 | Pre Anesthesia Assessment ---
Date of Service October 26, 2021 Pre Sedation Assessment Vital Signs Pulse Pulse Resp BP BP Pulse Ox 10/26/21 17:05 35 L 20 148/67 H 93 10/26/21 15:30 36 L 18 170/76 H 93 10/26/21 14:46 35 L 17 120/66 94 10/26/21 14:30 34 L 17 148/80 H 94 10/26/21 14:15 34 L 19 128/73 93 10/26/21 14:01 34 L 15 132/70 92 10/26/21 13:46 34 L 11 L 118/62 91 10/26/21 13:31 34 L 17 133/66 92 10/26/21 13:15 34 L 12 119/61 91 10/26/21 13:01 35 L 14 101/63 92 10/26/21 12:45 35 L 12 118/63 93 10/26/21 12:35 35 L 16 127/62 91 10/26/21 12:15 35 L 15 133/70 92 10/26/21 12:01 37 L 12 156/58 H 93 10/26/21 11:45 36 L 14 142/56 H 96 10/26/21 11:33 38 L 18 176/64 H 97 10/26/21 11:31 37 L 12 176/64 H 96 Cardiovascular RRR, no murmur, no edema + bradycardic Respiratory normal respiratory effort, lungs clear to auscultation Pre-Sedation Airway Assessment Smoking Status: Former smoker Mallampati Class: II ASA: ASA3 NPO Status Date of Last Intake of Fluids: 10/26/21 Time of Last Intake of Fluids: 08:30 Date of Last Intake of Solid Food: 10/26/21 Time of Last Intake of Solid Foods: 08:30 Procedure Planning Contraindications for Sedation: none Current Medications Reviewed: Yes Notes The planned sedation has been discussed with the patient. Informed Consent was obtained. I have identified the patient, determined the appropriateness of sedation and have assessed the patient immediately prior to the procedure. All medicine(s) and interventions are by my order.
[2021-10-26] MEDS ORDERED: ACETAMINOPHEN 325 MG TAB PO PRN (18:20)
[2021-10-26] MEDS ORDERED: ACETAMINOPHEN W/CODEINE #3 1 TAB PO PRN (18:20)
--- NOTE | 2021-10-26 18:20 | Electrophysiology Report ---
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 The left prepectoral region was anesthetized with 1% lidocaine local anesthetic and left axillary venipuncture was performed by percutaneous technique and a guidewire placed through the left subclavian vein into the superior vena cava. The area was further infiltrated with 1% lidocaine local anesthetic and a 5 cm incision was made parallel to the left clavicle and 2 cm below it and carried down to the anterior pectoralis fascia. A pacemaker pocket was formed by blunt dissection anterior to the pectoralis fascia and a vancomycin-soaked sponge was placed in the pocket. An 8 Micronesian Medtronic lead introducer was placed over the guidewire into the left subclavian vein, the dilator and guidewire were removed and a bipolar active fixation steroid tipped ventricular lead was advanced through the introducer into the superior vena cava. A guidewire was placed through the introducer and the introducer was stripped from the lead and guidewire. Another 8 Micronesian Medtronic lead introducer was placed over the guidewire into the left subclavian vein, the dilator and guidewire were removed and a bipolar active fixation steroid tipped atrial lead was advanced through the introducer into the superior vena cava. A guidewire was placed back through the introducer and the introducer was stripped from the lead and guidewire. Using a curved stylette the ventricular lead was advanced through the right ventricular outflow tract into the pulmonary artery and then using a straight stylette was positioned on the intraventricular septum. The screw was extended fixing the lead in position. Pacing and sensing thresholds were evaluated in bipolar configuration and are recorded on the implant data sheet. Diaphragmatic pacing was evaluated at maximum output as noted on the data sheet. Using a curved stylette the atrial lead was positioned in the region of the atrial appendage and the screw extended fixing the lead in position. Pacing and sensing thresholds were evaluated in bipolar configuration and are recorded on the implant data sheet. Diaphragmatic pacing was evaluated at maximum output as noted on the data sheet. Once the leads were in position they were attached to the anterior pectoralis fascia using 2 sutures of 2-0 silk around each lead collar. The vancomycin soaked sponge was removed from the pocket, hemostasis was obtained, the pacemaker was attached to the leads and placed in the pocket with the leads coiled beneath it. The incision was closed with a running double subcutaneous closure of 3-0 Vicryl absorbable suture, followed by running subcuticular skin closure of 4-0 Vicryl absorbable suture. Bacitracin ointment was placed on the incision and a dressing applied. [facility] Electrophysiology codes Indication for Procedure (1) Heart block: Pacing Procedure 1: Pacin Insert/Replace Pacer A & V PG Moderate Sedation Codes Moderate Sedation Codes Procedure 1: Sedation/Anesthesia: 96864 Mod Sedation by the same physician;Init15 Min Child Age 5 & Up Procedure 2: Sedation/Anesthesia: 88081 Mod Sedation by the same physician; Ea [id number] Minutes
[2021-10-26] MEDS ORDERED: ONDANSETRON INJ 2 MG/ML 2 ML VIAL IV PRN (18:44)
[2021-10-26] MEDS ORDERED: DEXTROSE 50% 50 ML SYRINGE IV PRN (18:44)
[2021-10-26] MEDS ORDERED: GLUCOSE 10 TABS/TUBE PO PRN (18:44)
[2021-10-26] MEDS ORDERED: GLUCOSE 40% GEL 15 GM TUBE PO PRN (18:44)
[2021-10-26] MEDS ORDERED: CARBOHYDRATES FOR HYPOGLYCEMIA PO PRN (18:44)
[2021-10-26] MEDS ORDERED: GLUCAGON FOR INJ 1 MG VIAL SQ PRN (18:44)
--- NOTE | 2021-10-26 19:08 | Post Anesthesia Assessment ---
Date of Service October 26, 2021 Post Sedation Assessment Vital Signs Temp Pulse Pulse Resp BP BP Pulse Ox 10/26/21 18:31 36.4 C L 61 22 175/63 H 96 10/26/21 17:05 35 L 20 148/67 H 93 10/26/21 15:30 36 L 18 170/76 H 93 10/26/21 14:46 35 L 17 120/66 94 10/26/21 14:30 34 L 17 148/80 H 94 10/26/21 14:15 34 L 19 128/73 93 10/26/21 14:01 34 L 15 132/70 92 10/26/21 13:46 34 L 11 L 118/62 91 10/26/21 13:31 34 L 17 133/66 92 10/26/21 13:15 34 L 12 119/61 91 10/26/21 13:01 35 L 14 101/63 92 10/26/21 12:45 35 L 12 118/63 93 10/26/21 12:35 35 L 16 127/62 91 10/26/21 12:15 35 L 15 133/70 92 10/26/21 12:01 37 L 12 156/58 H 93 10/26/21 11:45 36 L 14 142/56 H 96 10/26/21 11:33 38 L 18 176/64 H 97 10/26/21 11:31 37 L 12 176/64 H 96 Discharge Sedation Level of Care: Fast Track Phase II Post Sedation Plan On clinical assessment, the patient appears to have tolerated the sedation without complications. Patient is recovering as anticipated. Patient will continue to be monitored by nursing and may be discharged when sedation discharge criteria are met per below protocol. Upon Completions of procedure up to 15 minutes continue every 5 minute vital signs and the P.A.R. score; then discharge to a Phase I or Fast Track to Phase II per the following guidelines: * Discharge Patient to appropriate Phase II area if PAR is 8 or greater or return to pre- procedure baseline. The post - procedure orders will be as directed. * If PAR score is less than 8 or not return to pre-procedure baseline then patient will follow Phase I monitoring till PAR is reached for Phase II. The Phase I may be done in procedure room or may call to secure a Phase I area. * If naloxone or flumazenil are used for reversal, hold in Phase I for continued monitoring from when last reversal dose was given for a minimum of 60 minutes or longer pending the nurse and/or physician discretion of patient condition before discharge to Phase II. Please call the Sedation Physician to re-evaluate and complete post-note for discharge to Phase II area. Do NOT discharge from procedure sedation or Phase 1 until post- sedation evaluation note is complete by procedure /sedation MD Sedation Discharge Instructions to be given to the patient at discharge to home.
[2021-10-26] MEDS: INSULIN ASPART PER UNIT SC SCH ×2 (19:40→21:58)
--- NOTE | 2021-10-26 20:46 | XRay Report ---
SINGLE VIEW CHEST CLINICAL HISTORY: Pacemaker implantation. FINDINGS: An AP, portable, upright chest radiograph is compared to study performed earlier the same d ay 10/26/2021 and correlated with chest CT dated 06/23/2017. A 2-lead cardiac pacemaker has been placed. Leads project over the right atrial appendage and the right ventricle. The heart is enlarged noting atherosclerotic calcification of the thoracic aorta. The pulmonary vasculature is noncongested. Atele ctasis is noted at the lung bases. No airspace consolidation or large pleural effusion is identified. No pneumothorax is seen. The skeletal structures are osteopenic. The bony thorax is grossly intact. IMPRESSION: 1. A 2-lead cardiac pacemaker has been implanted as above. No pneumothorax is identified post procedu re. 2. Cardiomegaly without radiographic evidence of congestive failure. 3. No airspace consolidation or large pleural effusion is identified. ACT 112: Negative or not required by law. Electronically signed by: Isaías Reyes M.D. 10/26/2021 8:45 PM
[2021-10-27 06:59] LABS: Basophils # (auto) 0.04 K/uL (0-0.2); Basophils % (auto) 0.4 %; Eosinophils # (auto) 0.23 K/uL (0-0.5); Eosinophils % (auto) 2.4 %; Hematocrit (blood only) 47.6 % (42-52); Hemoglobin 16.5 g/dL (14.0-18.0); Immature Granulocytes # (auto) 0.04 K/uL (0.00-0.02); Immature Granulocytes % (auto) 0.4 %; Lymphocytes # (auto) 2.02 K/uL (1.2-3.4); Lymphocytes % (auto) 21.1 %; Mean Corpuscular Hemoglobin 30.6 pg (25-34); Mean Corpuscular Hgb Conc 34.7 g/dL (32-36); Mean Corpuscular Volume 88.3 fL (80-100); Mean Platelet Volume 9.8 fL (7.4-10.4); Monocytes # (auto) 1.06 K/uL (0.11-0.59); Monocytes % (auto) 11.1 %; Neutrophils # (auto) 6.18 K/uL (1.4-6.5); Neutrophils % (auto) 64.6 %; Platelet Count 293 K/uL (130-400); RDW Coefficient of Variation 15.1 % (11.5-14.5); RDW Standard Deviation 48.4 fL (36.4-46.3); Red Blood Count 5.39 M/uL (4.7-6.1); White Blood Count 9.57 K/uL (4.8-10.8)
[2021-10-27 07:07] LABS: INR 1.1 (0.9-1.1); Prothrombin Time 11.2 Seconds (9.0-12.0)
[2021-10-27 07:47] LABS: Calcium 9.3 mg/dl (8.5-10.1); Magnesium 1.6 mg/dl (1.7-2.4); Potassium 4.6 mmol/L (3.5-5.1)
[2021-10-27 07:53] LABS: BUN Creatinine Ratio 16.9 (10-20); Creatinine Clr Calc Pharmacy 53.6 ml/min; Est GFR (Non-African American) 41.4 ml/min
[2021-10-27] MEDS: MAGNESIUM SULFATE / D5W 1 GM/100 ML BAG IV SCH ×2 (08:13→09:58)
[2021-10-27] MEDS: INSULIN ASPART PER UNIT SC SCH ×2 (08:22→12:15)
[2021-10-27] MEDS ORDERED: modafiniL 100 MG TAB PO SCH (09:00)
[2021-10-27] MEDS ORDERED: INSULIN GLARGINE SOLOSTAR 100 UNITS/ML 3 ML PEN SC SCH (09:00)
[2021-10-27] MEDS ORDERED: hydroCHLOROthiazide 25 MG TAB PO SCH (09:00)
--- NOTE | 2021-10-27 10:37 | Cardiology Progress Note ---
Date of Service October 27, 2021 Assessment & Plan (1) Status post placement of cardiac pacemaker: Plan: Postop day #1: He is doing well post pacemaker, the site looks acceptable with some ecchymosis, the x-ray looks good and the device is working well. He is stable for discharge. I will arrange follow-up on Friday. Admission and Anticipated Discharge Date Admission Date: October 26, 2021 Subjective He is feeling well following his pacemaker implantation yesterday, he is not having any significant incisional discomfort, he is not having chest discomfort. Physical Exam Physical Exam: The incision is clean and dry, there is a fair amount of ecchymosis but no significant swelling and no significant bleeding currently. No erythema or tenderness. Results & Data ([facility]) Vital Signs (Past 12 Hours) Vital Signs Temp Pulse Resp BP Pulse Ox 10/27/21 07:31 36.9 C 66 16 163/88 H 96 10/27/21 04:22 36.5 C 62 18 161/84 H 94 10/27/21 01:13 36.7 C 60 16 144/71 H 94 Laboratory Results Cardiac Enzymes 10/26/21 10/26/21 Range/Units 11:38 11:38 AST 24 (13-39) U/L Troponin I High Sens 7.7 (0-20) pg/ml Coagulation 10/26/21 10/27/21 Range/Units 11:38 06:20 PT 11.0 11.2 (9.0-12.0) Seconds APTT 25.9 (21.0-31.0) Seconds CBC 10/26/21 10/27/21 Range/Units 11:38 06:20 WBC 10.34 9.57 (4.8-10.8) K/uL RBC 5.18 5.39 (4.7-6.1) M/uL Hgb 16.2 16.5 (14.0-18.0) g/dL Hct 46.8 47.6 (42-52) % Plt Count 321 293 (130-400) K/uL Neut # (Auto) 6.97 H 6.18 (1.4-6.5) K/uL Lymph # (Auto) 1.94 2.02 (1.2-3.4) K/uL [place] # (Auto) 1.22 H 1.06 H (0.11-0.59) K/uL Eos # (Auto) 0.16 0.23 (0-0.5) K/uL Baso # (Auto) 0.02 0.04 (0-0.2) K/uL Comprehensive Metabolic Panel 10/26/21 10/27/21 Range/Units 11:38 06:20 Sodium 133 L 131 L (136-145) mmol/L Potassium 5.0 4.6 (3.5-5.1) mmol/L Chloride 101 100 (98-107) mmol/L Carbon Dioxide 23 19 L (21-32) mmol/L BUN 38 H 28 H (6-23) mg/dl Creatinine 1.88 H 1.66 H (0.6-1.4) mg/dl Glucose 311 H* 214 H (70-99(Fasting)) mg/dl Calcium 9.5 9.3 (8.5-10.1) mg/dl AST 24 (13-39) U/L ALT 53 H (7-52) U/L Alkaline Phosphatase 64 (34-104) U/L Total Protein 7.1 (6.0-8.3) gm/dl Albumin 4.4 (3.4-5.0) gm/dl Intake and Output 10/26/21 10/27/21 10/27/21 22:59 06:59 14:59 Intake Total 50 / 1350 800 / 1350 87.5 / 87.5 Output Total 740 / 1156 416 / 1156 Balance -690 / 194 384 / 194 87.5 / 87.5 Intake: IV 50 / 550 87.5 / 87.5 Clindamycin/D5w 600 mg In 50 ml 50 / 50 @ 100 mls/hr IV NOW ONE Rx#: [id number] Magnesium Sulfate / D5w 1 gm In 87.5 / 87.5 100 ml @ 50 mls/hr IV Q2H [facility] Rx#:[id number] Oral 800 / 800 Output: Urine 740 / 1155 415 / 1155 # Bowel Movements Other: Weight 124.7 kg 115.9 kg Weight Measurement Method Stated by [facility] Diagnostic Findings Telemetry: Atrial sensing with ventricular pacing throughout Postop ECG: Atrial sensing and ventricular pacing Chest x-ray: Good lead position, no pneumothorax Pacemaker evaluation: Excellent pacing and sensing characteristics PG Care Time/CCT Total # of Minutes Spent Total Time Spent with Patient: Total time spent is greater than 50% in coordination of care (as documented) at patient's floor/unit and/or counseling patient: Coding Level of Care Code 68597 Post Operative Follow-Up Diagnoses Status post placement of cardiac pacemaker Z95.0 CPT Codes Dual Lead Pacemaker System - 83921 ([id number])
--- NOTE | 2021-10-27 11:19 | XRay Report ---
XR chest 2V PA/lateral HISTORY: 71 years-old Male EXACT TIME ORDERED Evaluate for pneumothorax and l cardiomegaly COMPARISON: Chest radiograph 10/26/2021 TECHNIQUE: PA and lateral views of the chest FINDINGS: The cardiac silhouette is enlarged. There is a dual-lead left subclavian pacer. No postprocedural pne umothorax identified. Unchanged mild right hemidiaphragmatic elevation. No pleural effusion, airspace consolidation or overt pulmonary edema. Degenerative changes of the shoulders and spine. IMPRESSION: Status post placement of a dual lead left subclavian pacer. No postprocedural pneumothora x. ACT 112: Negative or not required by law. The above report was generated using voice recognition software. It may contain grammatical, syntax o r spelling errors. Electronically signed by: Allan Hernandez M.D. 10/27/2021 11:18 AM
[2021-10-27 13:02] LABS: BUN Creatinine Ratio 15.3 (10-20); Calcium 8.9 mg/dl (8.5-10.1); Creatinine Clr Calc Pharmacy 52.3 ml/min; Est GFR (African American) 46.7 ml/min; Est GFR (Non-African American) 40.3 ml/min; Potassium 4.4 mmol/L (3.5-5.1)
[2021-10-27] MEDS ORDERED: amLODIPine BESYLATE 5 MG TAB PO ONE (13:16)
--- NOTE | 2021-10-28 08:00 | Electrocardiogram Report ---
Test Reason : Blood Pressure : / mmHG Vent. Rate : 038 BPM Atrial Rate : 042 BPM P-R Int : 000 ms QRS Dur : 138 ms QT Int : 570 ms P-R-T Axes : 067 -35 -02 degrees QTc Int : 453 ms Sinus rhythm with A-V dissociation and Idioventricular rhythm Left axis deviation Right bundle branch block Abnormal ECG When compared with ECG of 13-DEC-2015 18:20, Idioventricular rhythm has replaced Sinus rhythm Vent. rate has decreased BY 23 BPM Confirmed by John Brumfield ([id number]) on 10/28/2021 7:59:48 AM Referred By: REFERRED SELF Confirmed By:John Brumfield
--- NOTE | 2021-10-28 08:19 | Electrocardiogram Report ---
Test Reason : Blood Pressure : / mmHG Vent. Rate : 064 BPM Atrial Rate : 064 BPM P-R Int : 194 ms QRS Dur : 170 ms QT Int : 478 ms P-R-T Axes : 033 -64 055 degrees QTc Int : 493 ms Atrial-sensed ventricular-paced rhythm Abnormal ECG When compared with ECG of 26-OCT-2021 11:24, (unconfirmed) Electronic ventricular pacemaker has replaced Idioventricular rhythm Vent. rate has increased BY 26 BPM Confirmed by John Brumfield ([id number]) on 10/28/2021 8:19:34 AM Referred By: REFERRED SELF Confirmed By:John Brumfield
--- NOTE | 2021-10-28 08:24 | Electrocardiogram Report ---
Test Reason : Blood Pressure : / mmHG Vent. Rate : 065 BPM Atrial Rate : 065 BPM P-R Int : 200 ms QRS Dur : 166 ms QT Int : 480 ms P-R-T Axes : 032 -63 064 degrees QTc Int : 499 ms Atrial-sensed ventricular-paced rhythm Abnormal ECG When compared with ECG of 26-OCT-2021 21:33, (unconfirmed) No significant change was found Confirmed by John Brumfield ([id number]) on 10/28/2021 8:23:53 AM Referred By: REFERRED SELF Confirmed By:John Brumfield
[2021-10-28] MEDS ORDERED: methIMAzole 5 MG TABLET PO SCH (09:00)
--- NOTE | 2021-10-28 15:50 | Discharge Summary ---
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 Patient coems to the EMD today from referral from PCP office secondary to bradycardia and concern of HDHB. 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 In the EMD the patient had routine labs performed and ECG. Interventional/EP cardiology was notified. HE was evaluated, had an ECHO performed and is being taken to the EP suite for BOTTOM FILLER. Patient will be admitted to PCU following placement. 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 He has history of Graves disease, and is on Methimazole sefl adjusted to 10mg every other day and does follow with endocrinology. He Denies any history of heart failure but is edematous in his legs and on diuretic therapy. He endorses that mass on the right side of his jaw is an infected hair, that has been trapped for many years- had evalaution and does not want the surgical procedure to explore or remove- because of the destination where this would be done at. COVID test on admission is: NEGATIVE Principal Diagnosis AV dissociation Discharge Exam General: awake, alert, no apparent distress Head: Normocephalic, atraumatic ENT: Right parotid mass to right TMJ/submandibular, hard non-mobile. PERRL, EOMI, no pharyngeal exudate, mucous membranes moist Neuro: AAO x 3, speech clear and appropriate, strength intact bilaterally 5/5, sensation intact and equal all extremities and dermatomes, no pronator drift Chest: equal rise and fall of the chest, no accessory muscle use, no heaves or thirlls, Clear to auscultation, on room air, Cardiac: Regular rate and rhythm, telemetry reviewed, skin warm dry, cap refill <3 seconds, peripheral pulses +2 no JVD, no murmur,+3 pitting edmea to bilateral lower extremities to knees : Spontaneously voiding, no pain, no CVA tenderness, Extremities: Normal inspection, no peripheral edema or erythema, calfs nontender to palpation Psych: Normal mood and affect Skin: no rash or erythema Discharge Data Allergies Allergy/AdvReac Type Severity Reaction Status Date / Time Corticosteroids Allergy Severe SWELLING, Verified 10/26/21 13:39 (Glucocorticoids) HIVES AFTER KIDNEY ISSUES Penicillins Allergy Mild RASH Verified 10/26/21 13:39 Consultations 10/26/21 15:06 ED Decision to Admit Stat 10/26/21 18:44 Consult Cardiology Routine Procedures Performed Operation Date: 10/26/21 15:30 Actual Procedures p Pacer with A/V Leads (Dual) - John Brumfield MD Ordered Studies 10/26/21 15:30 EP Lab Images for PACS ONCE Hospital Course (1) AV dissociation: Admitted for cardiac pacemaker. Postop Day 1. Patient will followup with Cardio as an outpatient. (2) HTN (hypertension): Controlled- will hold YOCASTA with HOMER - follow (3) Uncontrolled type 2 diabetes mellitus: resume outpatient management. will defer to PCP. (4) Hyperlipidemia: Continue statin (5) Narcolepsy: Continue modafinil (6) Hyperthyroidism: Continue methimazole (7) Lower extremity edema: Bilateral - RESUME HCTZ at 12.5mg at discharge. (8) HOMER (acute kidney injury): HOMER II on CKD III- baseline LEATHER COLORER 1.4-1.6 held HCTZ and losartan. will resume at discharge. recommend cutting back to 12.5 mg of HCTZ. Total Time Total Time Spent Total Time Spent (In Minutes): 35 Discharge Plan Discharge Items Patient Disposition: Home - Self-Care Reason For Visit: 3RD DEGREE AV BLOCK Discharge Diagnosis: AV Block Activity: Resume your previous activity Non-emergency contact: Primary Care Provider Call non-emergency contact if: you have any medication questions Follow-up/Referrals: John Brumfield MD [Physician] - 10/29/21 9:30 am Viral Lai DO [Primary Care Provider] - Diet: Carb Consistent or DM2 Addtl Attending Provider Instructions: You have been hospitalized for an acute medical problem. During your stay at [facility], we have made an effort to correct the problem that brought you to the hospital while keeping you as comfortable as possible. Medications/Pacemaker were used to bring your condition under control and your discharge instructions will include directions for any medications you should take after leaving the hospital. Will followup with Cardio on Friday. will resume HCTZ at 12.5 mg daily. Pending Studies at Discharge: No Stand-Alone Forms: My [facility], Smoking Cessation Medications and DC Order Prescriptions: New hydrochlorothiazide 12.5 mg tablet 12.5 mg PO DAILY Qty: 30 RF: 0 Continued (DME) blood sugar diagnostic Strip See Dose Instructions .ROUTE .MEDSUPPLY Qty: 400 RF: 3 lisinopril 20 mg tablet 20 mg PO HS Qty: 90 RF: 3 modafinil [Provigil] 200 mg tablet 200 mg PO QAM Qty: 90 RF: 1 (DME) insulin syringe-needle U-100 [BD Insulin Syringe Ultra-Fine] 1 mL 30 gauge x 1/2" syringe See Rx Instructions .ROUTE .MEDSUPPLY Qty: 400 RF: 3 methimazole 10 mg tablet 10 mg PO Q OTHER DAY Qty: 45 RF: 3 (DME) lancets [OneTouch Delica Lancets] 30 gauge misc See Rx Instructions .ROUTE .MEDSUPPLY Qty: 25 RF: 0 cranberry conc-ascorbic acid 4,200-20 mg capsule 1 cap PO QAM RF: 0 Lantus U-100 Insulin 100 unit/mL solution 55 unit subcut DAILY Qty: 5 RF: 3 aspirin 81 mg tablet,delayed release (DR/EC) 81 mg PO DAILY RF: 0 vitamin E 1,000 unit Capsule 1,000 unit PO DAILY RF: 0 garlic 1,000 mg Capsule 3,000 mg PO DAILY RF: 0 aloe vera 25 mg Capsule 1 cap PO QAM RF: 0 insulin aspart U-100 [Novolog U-100 Insulin aspart] 100 unit/mL solution 30 unit subcut DAILY RF: 0 Discontinued hydrochlorothiazide 12.5 mg tablet 12.5 mg PO QAM Qty: 90 RF: 3 Discharge Orders: Discharge Order (Routine); Ordered 10/27/21 Ordered By: Shmuel Phan/Other Patient Handouts: Pacemakers, Living with a Pacemaker, Pacemaker Implant Dc Admission Data Admit Date/Time: 10/26/21 15:30 Attending Provider: Shmuel Agrawal Admit Provider: Shmuel Agrawal Primary Care Provider: Viral Lai Other Providers: Shmuel Agrawal ; Palomo Pena Other Interventions: Discharge Summary Assessment (RN) Last Done: 10/27/21 13:30 Coding Level of Care Code D/C DAY MANAGEMENT >30 MINS Diagnoses AV dissociation I45.89 HTN (hypertension) I10 Uncontrolled type 2 diabetes mellitus E11.65 Hyperlipidemia E78.5 Narcolepsy G47.419 Hyperthyroidism E05.90 Lower extremity edema R60.0 HOMER (acute kidney injury) N17.9
== END 2021-10-27 14:26 | disposition home or self-care (01) ==
LOC: ED 11:23 → INTOOBSV 15:30 → 2E 15:30

== ENCOUNTER 2024-12-18 23:02 | Inpatient (IN) ==
[2024-12-18] MEDS: SODIUM CHLORIDE 0.9% 1,000 ML IV SCH (23:41)
--- NOTE | 2024-12-18 23:42 | Emergency Department Note ---
History of Present Illness General Chief complaint: Illness Stated complaint: SOB, Diarrhea, Fever, Dizziness, Urinary Symptoms Time Seen by Provider: 12/18/24 23:25 History of Present Illness Provider complaint: Weakness 74-year-old male presents emergency department for weakness. Patient reports he has been feeling weak for the last week. Patient denies any headache chest pain or abdominal pain. No nausea or vomiting. Patient does report some mild shortness of breath fever and diarrhea. Home Medications Medication Instructions Recorded Confirmed Type garlic 1,000 mg capsule 1,000 mg PO QAM 03/06/18 12/19/24 History cranberry concentrate-ascorbic 1 cap PO QAM 05/10/19 12/19/24 History acid 4,200 mg-20 mg capsule aspirin 81 mg tablet,delayed 81 mg PO QAM 05/04/20 12/19/24 History release lancets 30 gauge (OneTouch Delica #25 ea 10/25/20 12/16/24 History Lancets) aloe vera 25 mg capsule 75 mg PO QAM 09/19/22 12/19/24 History insulin syringe-needle U-100 1 mL #400 ea 06/26/23 12/16/24 Rx 30 gauge x 1/2" (BD Insulin Syringe Ultra-Fine) vitamin B complex 1 cap PO QAM 01/15/24 12/19/24 History OneTouch Ultra Test (blood sugar #400 ea 02/13/24 12/16/24 Rx diagnostic) modafinil 200 mg tablet (Provigil) 200 mg PO QAM #90 tabs 06/07/24 12/19/24 Rx insulin aspart U-100 100 unit/mL 10 unit subcut TID 06/17/24 12/19/24 History subcutaneous solution (Novolog U-100 Insulin aspart) lisinopril 20 mg tablet 20 mg PO HS #90 tabs 06/18/24 12/19/24 Rx insulin glargine 100 unit/mL 55 unit (0.55 mL) subcut QPM #50 mL 08/04/24 12/19/24 Rx subcutaneous solution (Lantus U-100 Insulin) methimazole 10 mg tablet 10 mg PO UD #90 tabs 09/10/24 12/19/24 Rx furosemide 20 mg tablet 40 mg (2 x 20 mg) PO QAM #90 tabs 10/12/24 12/19/24 Rx Allergies Allergy/AdvReac Type Severity Reaction Status Date / Time atorvastatin Allergy Severe Rash Verified 12/19/24 00:15 Corticosteroids Allergy Severe SWELLING, Verified 12/16/24 08:46 (Glucocorticoids) HIVES AFTER KIDNEY ISSUES Penicillins Allergy Mild RASH Verified 12/16/24 08:46 Past Med/Surg History Problem List (Updated 12/19/24 @ 01:19 by Stanford Kirby MD) At high risk for tick borne illness (Acute) Fluid overload (Acute) Acute hyponatremia (Acute) Hypoxia (Acute) Generalized weakness Vitamin D deficiency Neck mass (Chronic) Chronic venous insufficiency Mass of right parotid gland Wound of left leg Cardiac pacemaker Hyponatremia Status post placement of cardiac pacemaker Heart block (Acute) AV dissociation Symptomatic bradycardia BPH with obstruction/lower urinary tract symptoms HTN (hypertension) BPH (benign prostatic hyperplasia) Noncompliance RBBB (right bundle branch block) Cheek swelling Dyspnea Uncontrolled type 2 diabetes mellitus (Chronic) Lower extremity edema 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) Goiter Hyperthyroidism Hydrocele Polycythemia (Acute) TIFFANY (obstructive sleep apnea) (Acute) non-compliance Narcolepsy (Acute) Hyperlipidemia (Acute) Medical History History of right bundle branch block (RBBB) Symptomatic bradycardia TIFFANY (obstructive sleep apnea) Narcolepsy Hyperthyroidism Hyperlipidemia HTN (hypertension) Hx of shortness of breath Chronic venous insufficiency BPH (benign prostatic hyperplasia) Venous stasis ulcer of right lower extremity Venous stasis ulcer of left lower extremity Tick bite of right side of chest wall Sinus node dysfunction HOMER (acute kidney injury) Hx of pancreatitis Pacemaker Chronic back pain Pleomorphic adenoma of parotid gland Osteoarthritis Poor historian History of renal failure Cardiac murmur Surgical History History of surgery History of colonoscopy Family History Father Diabetes Blood disorder Grandmother (Maternal) Diabetes Brother Cancer of spleen Other No family history of adverse response to anesthesia Denies family history of Ovarian cancer Prostate cancer Myocardial infarction Breast cancer Colorectal cancer Social History Smoking Status: Former smoker Tobacco Type: Cigarettes Age Started Using Tobacco: 18; Age Quit Using Tobacco: 58; packs per day: 3; Cigarettes Per Day: 30; Second Hand Exposure: Yes (hx); Do You Dip or Chew Tobacco: No; Hx Alcohol Use: No Hx Substance Use: No Preferred Language: French Communication Ability: Effective Visual Impairment: No Limitations Hearing Ability: Normal Marine 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 Required: No Beliefs That Will Affect Care: None marital status: Current Living Situation: Spouse current occupational status: retired How many Children do You have: 2 Feels Safe at Home: Yes Childhood Exposure to Second-Hand Smoke: Yes Diet: regular caffeine: Yes during the past year weight has: remained stable Dental Care, Regularly: No Physical Activity Frequency: 3-4 Times per Week Seatbelt Use: always Sunscreen Use: Yes Assistive Devices: Glasses Physical Exam Vital Signs Vital Signs - 24 hr 12/18/24 23:09 12/18/24 23:10 12/18/24 23:10 Temperature 38.7 C H 38.7 C H Temperature Source Oral Oral Pulse Rate 77 78 Pulse Rate [Apical] 78 Pulse Rhythm Respiratory Rate 35 H 33 H 33 H Respiratory Effort / Characteristics Spontaneous Labored Spontaneous Labored Respiratory Depth Shallow Respiratory Pattern Regular Blood Pressure 137/80 137/80 Blood Pressure [Right Arm] 137/80 Blood Pressure Mean 99 99 Blood Pressure Mean [Right Arm] 99 Pulse Oximetry 91 91 91 Oxygen Delivery Method Room Air Room Air Oxygen Flow Rate Sepsis Recent Fever Within 48 Hours Yes Sepsis New/Unexplained Change in Mental Status Yes Sepsis Action Taken by Nursing No Action Required 12/18/24 23:37 12/19/24 00:03 12/19/24 00:09 Temperature Temperature Source Pulse Rate 77 74 90 Pulse Rate [Apical] Pulse Rhythm Regular Respiratory Rate 25 H 27 H Respiratory Effort / Characteristics Respiratory Depth Respiratory Pattern Blood Pressure 128/72 Blood Pressure [Right Arm] Blood Pressure Mean 90 Blood Pressure Mean [Right Arm] Pulse Oximetry 88 L 93 Oxygen Delivery Method Nasal Cannula Oxygen Flow Rate 2 Sepsis Recent Fever Within 48 Hours Sepsis New/Unexplained Change in Mental Status Sepsis Action Taken by Nursing 12/19/24 00:30 12/19/24 00:48 12/19/24 01:00 Temperature 37.1 C Temperature Source Oral Pulse Rate 69 66 Pulse Rate [Apical] Pulse Rhythm Respiratory Rate 24 28 H Respiratory Effort / Characteristics Respiratory Depth Respiratory Pattern Blood Pressure 105/61 116/69 Blood Pressure [Right Arm] Blood Pressure Mean 80 91 Blood Pressure Mean [Right Arm] Pulse Oximetry 92 93 Oxygen Delivery Method Nasal Cannula Nasal Cannula Oxygen Flow Rate 2 2 Sepsis Recent Fever Within 48 Hours Sepsis New/Unexplained Change in Mental Status Sepsis Action Taken by Nursing Physical Exam HENT: Exam performed. - Head: Normocephalic and atraumatic. EYES: Conjunctivae and EOM are normal. Right eye exhibits no discharge. Left eye exhibits no discharge. No scleral icterus. NECK: Normal range of motion. Neck supple. No JVD present. CV: Normal rate, regular rhythm, normal heart sounds and intact distal pulses. There is no peripheral edema. Palpable radial pulses bue. PULM/CHEST: Rhonchi bilaterally. ABD: Obese. The abdomen is soft. There is no tenderness. NEURO: Motor and sensation grossly intact. Course Course 2325: The patient was evaluated in room B4. A complete history and physical exam was performed Cardiac monitoring: An order was placed for continuous cardiac monitoring. The monitor shows a rate of 80 with paced rhythm interpreted by me 0005: Patient became hypoxic on room air. Supplemental oxygen was applied via nasal cannula to improve the patient's oxygen saturation. 0114: Vital signs stable supplemental oxygen via nasal cannula. Labs show a white blood cell count 6.25 hemoglobin 12.1 platelet count 59. Coagulation studies are unremarkable. VBG shows venous pH of 7.41 venous pCO2 of 33. Sodium 121. Creatinine mildly elevated from the patient's baseline at 2.05. Lactic acid is within normal limits. Calcium 8.1. Bilirubin 1.3 direct bilirubin 0.4 AST ALT 53 each. Procalcitonin 1.57. Urinalysis is unremarkable. Bio fire respiratory negative. Chest x-ray shows mild cardiomegaly with mild pulmonary overload. Pathology department alerted me that the patient's blood smear is concerning for babesiosis. Family denies any recent travel for the patient but does report that the patient lives in a highly tick infested area. Confirmatory DNA testing for babesiosis ordered. Lyme screen as well as other tickborne illness panel ordered. Patient be treated with atovaquone, azithromycin for possible babesiosis. Doxycycline also ordered for the patient in case of another tickborne illness. Cefepime was also ordered for the patient. [facility] Discussed case with Dr. Alejandra [place] hospitalist who accept the patient. She states hold off on any diuretics at this time. Administered Medications Discontinued Medications Atovaquone (Atovaquone 750 Mg/5 Ml Udc) 750 mg PO Q12H STA Stop: 12/19/24 00:58 Last Admin: 12/19/24 01:28 Dose: 750 mg Documented By: GRADY Azithromycin (Azithromycin 250 Mg Tab) 500 mg PO NOW ONE Stop: 12/19/24 00:12 Last Admin: 12/19/24 00:45 Dose: 500 mg Documented By: GRADY Doxycycline Hyclate (Doxycycline Hyclate 100 Mg Cap) 100 mg PO NOW STA Stop: 12/19/24 00:59 Last Admin: 12/19/24 01:28 Dose: 100 mg Documented By: GRADY Sodium Chloride (Nss) 1,000 mls @ 999 mls/hr IV .Q1H1M MICHELLE Stop: 12/19/24 00:30 Last Infusion: 12/18/24 23:55 Dose: Infused Documented By: Admin: 12/18/24 23:41 Dose: 999 mls/hr Documented By: GRADY Acetaminophen (Ofirmev) 1,000 mg in 100 mls @ 400 mls/hr IV NOW STA Stop: 12/18/24 23:40 Last Infusion: 12/18/24 23:58 Dose: Infused Documented By: Admin: 12/18/24 23:43 Dose: 400 mls/hr Documented By: GRADY Sodium Chloride (Nss) 500 mls @ 999 mls/hr IV .Q31M ONE Stop: 12/19/24 00:22 Last Infusion: 12/19/24 00:49 Dose: Infused Documented By: Admin: 12/18/24 23:57 Dose: 999 mls/hr Documented By: GRADY Cefepime HCl (Maxipime 2000mg) 2,000 mg in 20 mls @ 5 mls/min IV NOW STA; Protocol Stop: 12/19/24 00:17 Last Admin: 12/19/24 00:45 Dose: 5 mls/min Documented By: GRADY Critical Care Time Critical Care Time: Yes Total Critical Care Time: 46 I have personally spent greater than 46 minutes of critical care time in the direct management of this patient. This includes bedside care, interpretation of diagnostic studies, and testing, discussion with consultants, patient, and family members, and other required patient management activities. This 46 minutes is in excess of all separately billable procedures. Medical Decision Making Laboratory Data Attestation: I reviewed the patient's lab results. 12/18/24 23:25 12/18/24 23:25 Lab Results 12/18/24 12/18/24 12/19/24 Range/Units 23:18 23:25 00:03 WBC 6.25 (4.8-10.8) K/ul RBC 4.01 L (4.70-6.10) M/uL Hgb 12.1 L (14.0-18.0) g/dl Hct 33.9 L (42.0-52.0) % MCV 84.5 (80.0-100.0) fL MCH 30.2 (25.0-34.0) pg MCHC 35.7 (32.0-36.0) g/dL RDW Std Deviation 46.0 (36.4-46.3) fL RDW Coeff of [place] 14.8 H (11.5-14.5) % Plt Count 59 L (130-400) K/uL MPV 12.2 (9.4-12.4) fL Immature Gran % (Auto) 0.5 % Neut % (Auto) 62.2 % Lymph % (Auto) 21.0 % Braxton % (Auto) 15.8 % Eos % (Auto) 0.2 % Baso % (Auto) 0.3 % Neut # (Auto) 3.89 (1.40-6.50) K/uL Lymph # (Auto) 1.31 (1.20-3.40) K/uL Braxton # (Auto) 0.99 H (0.11-0.59) K/uL Eos # (Auto) 0.01 (0.00-0.50) K/uL Baso # (Auto) 0.02 (0.00-0.20) K/uL Immature Gran # (Auto) 0.03 (0.01-0.20) K/uL PT 12.0 (9.0-12.0) Seconds INR 1.1 (0.9-1.1) APTT 32 H (21-31) Seconds PTT Ratio 1.2 VBG pH 7.41 (7.36-7.41) VBG pCO2 33 L (38-50) mmHg VBG pO2 47 mmHg VBG HCO3 21 mmol/L VBG O2 Saturation 80.8 % VBG Base Excess -2.9 mEq/L Sodium 121 L (136-145) mmol/L Potassium 4.3 (3.5-5.1) mmol/L Chloride 92 L (98-107) mmol/L Carbon Dioxide 21 (21-32) mmol/L Anion Gap 8 (3-11) BUN 41 H (6-23) mg/dl Creatinine 2.05 H (0.6-1.4) mg/dl Est Cr Clr Drug Dosing 41.3 ml/min eGFR 33.79 BUN/Creatinine Ratio 20.0 (10-20) Glucose 205 H (70-99(Fasting)) mg/dl Lactate 1.1 (0.4-2.0) mmol/L Calcium 8.1 L (8.6-10.3) mg/dl Magnesium 1.8 (1.7-2.4) mg/dl Total Bilirubin 1.3 H (0.2-1.0) mg/dl Direct Bilirubin 0.4 H (0-0.2) mg/dl AST 53 H (13-39) U/L ALT 53 H (7-52) U/L Alkaline Phosphatase 49 (34-104) U/L Troponin I High Sens 15.1 (0-20) pg/ml Total Protein 7.0 (6.0-8.3) gm/dl Albumin 3.8 (3.4-5.0) gm/dl Procalcitonin 1.57 H (0-0.5) ng/ml Urine Color Urine Appearance (Clear) Urine pH (4.5-7.5) Ur Specific [place] (1.000-1.030) Urine Protein (Negative) Urine Glucose (UA) (Negative) Urine Ketones (Negative) Urine Blood (Negative) Urine Nitrite (Negative) Urine Bilirubin (Negative) Urine Urobilinogen (Negative) Ur Leukocyte Esterase (Negative) Urine WBC (Auto) (0-5) /hpf Urine RBC (Auto) (0-2) /hpf U Hyaline Cast (Auto) (0-2) /lpf U Epithel Cells (Auto) (0-2) /hpf Urine Bacteria (Auto) (None Seen) Urine Comment Adenovirus (PCR) Not Detected (NotDetected) Anaplasma Smear See Comment Babesia Smear See Comment A B. pertussis DNA (PCR) Not Detected (NotDetected) B.parapertussis DNA PCR Not Detected (NotDetected) C. pneumoniae DNA (PCR) Not Detected (NotDetected) Coronavirus OC43 (PCR) Not Detected (NotDetected) Coronavirus HKU1 (PCR) Not Detected (NotDetected) Coronavirus 229E (PCR) Not Detected (NotDetected) SARS-CoV-2 (PCR) Not Detected (NotDetected) Coronavirus NL63 (PCR) Not Detected (NotDetected) Human Metapneumovir PCR Not Detected (NotDetected) Influenza Type A (PCR) Not Detected (NotDetected) Influenza Type B (PCR) Not Detected (NotDetected) M. pneumoniae (PCR) Not Detected (NotDetected) Parainfluenza 1 (PCR) Not Detected (NotDetected) Parainfluenza 2 (PCR) Not Detected (NotDetected) Parainfluenza 3 (PCR) Not Detected (NotDetected) Parainfluenza 4 (PCR) Not Detected (NotDetected) RSV (PCR) Not Detected (NotDetected) Entero/Rhino (PCR) Not Detected (NotDetected) 12/19/24 Range/Units 00:30 WBC (4.8-10.8) K/ul RBC (4.70-6.10) M/uL Hgb (14.0-18.0) g/dl Hct (42.0-52.0) % MCV (80.0-100.0) fL MCH (25.0-34.0) pg MCHC (32.0-36.0) g/dL RDW Std Deviation (36.4-46.3) fL RDW Coeff of [place] (11.5-14.5) % Plt Count (130-400) K/uL MPV (9.4-12.4) fL Immature Gran % (Auto) % Neut % (Auto) % Lymph % (Auto) % Braxton % (Auto) % Eos % (Auto) % Baso % (Auto) % Neut # (Auto) (1.40-6.50) K/uL Lymph # (Auto) (1.20-3.40) K/uL Braxton # (Auto) (0.11-0.59) K/uL Eos # (Auto) (0.00-0.50) K/uL Baso # (Auto) (0.00-0.20) K/uL Immature Gran # (Auto) (0.01-0.20) K/uL PT (9.0-12.0) Seconds INR (0.9-1.1) APTT (21-31) Seconds PTT Ratio VBG pH (7.36-7.41) VBG pCO2 (38-50) mmHg VBG pO2 mmHg VBG HCO3 mmol/L VBG O2 Saturation % VBG Base Excess mEq/L Sodium (136-145) mmol/L Potassium (3.5-5.1) mmol/L Chloride (98-107) mmol/L Carbon Dioxide (21-32) mmol/L Anion Gap (3-11) BUN (6-23) mg/dl Creatinine (0.6-1.4) mg/dl Est Cr Clr Drug Dosing ml/min eGFR BUN/Creatinine Ratio (10-20) Glucose (70-99(Fasting)) mg/dl Lactate (0.4-2.0) mmol/L Calcium (8.6-10.3) mg/dl Magnesium (1.7-2.4) mg/dl Total Bilirubin (0.2-1.0) mg/dl Direct Bilirubin (0-0.2) mg/dl AST (13-39) U/L ALT (7-52) U/L Alkaline Phosphatase (34-104) U/L Troponin I High Sens (0-20) pg/ml Total Protein (6.0-8.3) gm/dl Albumin (3.4-5.0) gm/dl Procalcitonin (0-0.5) ng/ml Urine Color Yellow Urine Appearance Clear (Clear) Urine pH 5.5 (4.5-7.5) Ur Specific [place] 1.016 (1.000-1.030) Urine Protein 2+ H (Negative) Urine Glucose (UA) Negative (Negative) Urine Ketones 1+ H (Negative) Urine Blood 1+ H (Negative) Urine Nitrite Negative (Negative) Urine Bilirubin Negative (Negative) Urine Urobilinogen Negative (Negative) Ur Leukocyte Esterase Negative (Negative) Urine WBC (Auto) 0-5 (0-5) /hpf Urine RBC (Auto) 0-2 (0-2) /hpf U Hyaline Cast (Auto) 3-5 H (0-2) /lpf U Epithel Cells (Auto) 0-2 (0-2) /hpf Urine Bacteria (Auto) None Seen (None Seen) Urine Comment Adenovirus (PCR) (NotDetected) Anaplasma Smear Babesia Smear B. pertussis DNA (PCR) (NotDetected) B.parapertussis DNA PCR (NotDetected) C. pneumoniae DNA (PCR) (NotDetected) Coronavirus OC43 (PCR) (NotDetected) Coronavirus HKU1 (PCR) (NotDetected) Coronavirus 229E (PCR) (NotDetected) SARS-CoV-2 (PCR) (NotDetected) Coronavirus NL63 (PCR) (NotDetected) Human Metapneumovir PCR (NotDetected) Influenza Type A (PCR) (NotDetected) Influenza Type B (PCR) (NotDetected) M. pneumoniae (PCR) (NotDetected) Parainfluenza 1 (PCR) (NotDetected) Parainfluenza 2 (PCR) (NotDetected) Parainfluenza 3 (PCR) (NotDetected) Parainfluenza 4 (PCR) (NotDetected) RSV (PCR) (NotDetected) Entero/Rhino (PCR) (NotDetected) Imaging Data Attestation: I personally reviewed and interpreted this imaging study as follows: My Impression: Chest x-ray: mild cardiomegaly with mild pulmonary overload. Radiologist's Impression: Chest X-Ray 12/18/24 23:25 Exam(s): XR CXR 1 VIEW EXAM: XR Chest, 1 View CLINICAL HISTORY: Sepsis. TECHNIQUE: Frontal view of the chest. COMPARISON: 10/27/2021 FINDINGS: Left subclavian dual-chamber pacemaker is present. Heart is enlarged. Mild pulmonary vascular congestion. Hypoventilation. No definite pneumonia. No pleural effusion or pneumothorax. Bones are unchanged. IMPRESSION: Cardiomegaly. Mild pulmonary vascular congestion. Electronically signed by: Nitish Chirinos M.D. 12/19/24 00:58 AM ECG Data Attestation: I personally reviewed and interpreted this ECG as follows: Additional Comments: Paced rhythm with a rate of 76. NV 216 QRS 150 QTc 461. PVC present. [facility] Narrative 2325: The patient was evaluated in room B4. A complete history and physical exam was performed Cardiac monitoring: An order was placed for continuous cardiac monitoring. The monitor shows a rate of 80 with paced rhythm interpreted by me 0005: Patient became hypoxic on room air. Supplemental oxygen was applied via nasal cannula to improve the patient's oxygen saturation. 0114: Vital signs stable supplemental oxygen via nasal cannula. Labs show a white blood cell count 6.25 hemoglobin 12.1 platelet count 59. Coagulation studies are unremarkable. VBG shows venous pH of 7.41 venous pCO2 of 33. Sodium 121. Creatinine mildly elevated from the patient's baseline at 2.05. Lactic acid is within normal limits. Calcium 8.1. Bilirubin 1.3 direct bilirubin 0.4 AST ALT 53 each. Procalcitonin 1.57. Urinalysis is unremarkable. Bio fire respiratory negative. Chest x-ray shows mild cardiomegaly with mild pulmonary overload. Pathology department alerted me that the patient's blood smear is concerning for babesiosis. Family denies any recent travel for the patient but does report that the patient lives in a highly tick infested area. Confirmatory DNA testing for babesiosis ordered. Lyme screen as well as other tickborne illness panel ordered. Patient be treated with atovaquone, azithromycin for possible babesiosis. Doxycycline also ordered for the patient in case of another tickborne illness. Cefepime was also ordered for the patient. [facility]: Discussed case with Dr. Alejandra [facility] hospitalist who accept the patient. She states hold off on any diuretics at this time. Impression & Plan Hypoxia, Acute hyponatremia, Fluid overload, At high risk for tick borne illness Discharge Plan Visit Data Chief Complaint: Illness Stated Complaint: SOB, Diarrhea, Fever, Dizziness, Urinary Symptoms ED Provider: Stanford Kirby Discharge Problem: Hypoxia, Acute hyponatremia, Fluid overload, At high risk for tick borne illness Patient Disposition: Admitted As Inpatient Condition: Serious Forms Stand Alone Forms: [facility] Prescriptions Prescriptions: No Action (DME) OneTouch Ultra Test Strip See Dose Instructions .ROUTE .MEDSUPPLY Qty: 400 3RF Dose Instruction: As directed Rx Instructions: Test blood sugar four times daily modafinil [Provigil] 200 mg tablet 200 mg PO QAM Qty: 90 1RF lisinopril 20 mg tablet 20 mg PO HS Qty: 90 3RF insulin glargine [Lantus U-100 Insulin] 100 unit/mL solution 55 unit subcut QPM Qty: 50 3RF methimazole 10 mg tablet 10 mg PO UD Qty: 90 1RF Rx Instructions: alternate 10 mg with 5 mg qod orally daily; furosemide 20 mg tablet 40 mg PO QAM Qty: 90 3RF (DME) lancets [OneTouch Delica Lancets] 30 gauge misc See Rx Instructions .ROUTE .MEDSUPPLY Qty: 25 Rx Instructions: use 4 daily cranberry conc-ascorbic acid 4,200-20 mg capsule 1 cap PO QAM aspirin 81 mg tablet,delayed release (DR/EC) 81 mg PO QAM (DME) insulin syringe-needle U-100 [BD Insulin Syringe Ultra-Fine] 1 mL 30 gauge x 1/2" syringe See Rx Instructions .ROUTE .MEDSUPPLY Qty: 400 3RF Rx Instructions: Inject insulin four times daily vitamin B complex Capsule 1 cap PO QAM insulin aspart U-100 [Novolog U-100 Insulin aspart] 100 unit/mL solution 10 unit subcut TID garlic 1,000 mg Capsule 1,000 mg PO QAM aloe vera 25 mg capsule 75 mg PO QAM Rx Instructions: 3-4 times per week Referrals Referrals: Viral Lai DO [Primary Care Provider] -
[2024-12-18] MEDS: ACETAMINOPHEN 1,000 MG/100 ML VIAL IV STA (23:43)
[2024-12-18 23:45] LABS: Base Excess VBG -2.9 mEq/L; HCO3 VBG 21 mmol/L; Oxygen Saturation VBG 80.8 %; PCO2 VBG 33 mmHg (38-50); PO2 VBG 47 mmHg; pH VBG 7.41 (7.36-7.41)
[2024-12-18] MEDS: SODIUM CHLORIDE 0.9% 500 ML IV ONE (23:57)
[2024-12-19 00:03] LABS: Alanine Aminotransferase 53.0 U/L (7-52); Alkaline Phosphatase 49.0 U/L (34-104); Anion Gap 8.0 (3-11); Bilirubin,Total 1.3 mg/dl (0.2-1.0); Blood Urea Nitrogen 41.0 mg/dl (6-23); Calcium 8.1 mg/dl (8.6-10.3); Carbon Dioxide 21.0 mmol/L (21-32); Chloride 92.0 mmol/L (98-107); Creatinine Clr Calc Pharmacy 41.3 ml/min; Glucose 205.0 mg/dl (70-99(Fasting)); Magnesium 1.8 mg/dl (1.7-2.4); Potassium 4.3 mmol/L (3.5-5.1); Sodium 121.0 mmol/L (136-145); Total Protein 7.0 gm/dl (6.0-8.3)
[2024-12-19 00:19] LABS: INR 1.1 (0.9-1.1); Partial Thromboplastin Time 32 Seconds (21-31); Prothrombin Time 12.0 Seconds (9.0-12.0)
[2024-12-19] MEDS: AZITHROMYCIN 250 MG TAB PO ONE (00:45)
[2024-12-19] MEDS: CEFEPIME 2000MG 2,000 MG/20 ML SYR IV STA (00:45)
[2024-12-19 00:55] LABS: Hematocrit (blood only) 33.9 % (42.0-52.0); Hemoglobin 12.1 g/dl (14.0-18.0); Mean Corpuscular Hemoglobin 30.2 pg (25.0-34.0); Mean Corpuscular Volume 84.5 fL (80.0-100.0); Platelet Count 59 K/uL (130-400); RDW Standard Deviation 46.0 fL (36.4-46.3); Red Blood Count 4.01 M/uL (4.70-6.10); White Blood Count 6.25 K/ul (4.8-10.8)
--- NOTE | 2024-12-19 00:59 | XRay Report ---
Exam(s): XR CXR 1 VIEW EXAM: XR Chest, 1 View CLINICAL HISTORY: Sepsis. TECHNIQUE: Frontal view of the chest. COMPARISON: 10/27/2021 FINDINGS: Left subclavian dual-chamber pacemaker is present. Heart is enlarged. Mild pulmonary vascular congestion. Hypoventilation. No definite pneumonia. No pleural effusion or pneumothorax. Bones are unchanged. IMPRESSION: Cardiomegaly. Mild pulmonary vascular congestion. Electronically signed by: Nitish Chirinos M.D. 12/19/24 00:58 AM
[2024-12-19 01:02] LABS: Chlamydia pneumoniae PCR Not Detected (NotDetected); Coronavirus 229E PCR Not Detected (NotDetected); Coronavirus CoV-2 (COVID19)PCR Not Detected (NotDetected); Coronavirus HKU1 PCR Not Detected (NotDetected); Coronavirus NL63 PCR Not Detected (NotDetected); Coronavirus OC43PCR Not Detected (NotDetected); Human Metapneumovirus PCR Not Detected (NotDetected); Parainfluenza Virus 1 PCR Not Detected (NotDetected); Parainfluenza Virus 2 PCR Not Detected (NotDetected); Parainfluenza Virus 3 PCR Not Detected (NotDetected); Parainfluenza Virus 4 PCR Not Detected (NotDetected); Respiratory Syncytial VirusPCR Not Detected (NotDetected); Rhinovirus/Enterovirus PCR Not Detected (NotDetected)
[2024-12-19 01:05] LABS: Appearance Urine Clear (Clear); Bacteria Urine Automated None Seen (None Seen); Epithelial Cell Urine Auto 0-2 /hpf (0-2); Glucose Urine UA Negative (Negative); RBC Urine Automated 0-2 /hpf (0-2); WBC Urine Automated 0-5 /hpf (0-5)
[2024-12-19] MEDS: DOXYCYCLINE HYCLATE 100 MG CAP PO STA (01:28)
[2024-12-19] MEDS: ATOVAQUONE 750 MG/5 ML UDC PO STA (01:28)
[2024-12-19 01:32] LABS: Immature Granulocytes # (auto) 0.03 K/uL (0.01-0.20); Immature Granulocytes % (auto) 0.5 %
[2024-12-19 02:24] LABS: Cdiff Toxin B Gene (2yr or >) Negative Cdiff Gene (Neg)
--- NOTE | 2024-12-19 02:34 | History & Physical Report ---
Date of Service December 19, 2024 Assessment & Plan (1) Babesiosis: (2) Acute hyponatremia: (3) Hypoxia: (4) Generalized weakness: (5) Mass of right parotid gland: (6) Status post placement of cardiac pacemaker: (7) Symptomatic bradycardia: (8) HTN (hypertension): (9) Type 2 DM with CKD stage 3 and hypertension: (10) Hyperthyroidism: (11) TIFFANY (obstructive sleep apnea): (12) Hyperlipidemia: Plan 74 y/o male with PMHx that includes h/o heart block s/p pacemaker placement, HTN, T2DM, CKD stage 3, right parotid swelling/mass, BPH, TIFFANY, HLD, hyperthyroidism presents with generalized weakness, malaise, fevers: #Babesiosis: Peripheral smear consistent with babesiosis - dx further supported by lab findings ie. presence of thrombocytopenia, transaminitis Start Atovaquone and Azithromycin Additional tick-borne illnesses possible - continue doxycyline until ruled out Tylenol PRN for fever #HOMER: Cr 2.05 (baseline ~1.5) - patient appears clinically dry, suspect prerenal etiology D/t SOB and concern for poor forward flow d/t bradycardia, will defer additional fluids at this time. Encourage PO intake. Hold Lasix, Lisinopril Repeat AM labs #Dyspnea // ?Bradycardia: CXR with very minimal pulmonary vascular congestion, incongruent with increased work of breathing noted on exam Patient noted to have intermittent bradycardia on monitor while in ED (HR low 40s) - recommend pacemaker interrogation to r/o bradycardia as cause for SOB #Hyponatremia: Na 121 Patient clinically dry but also appears volume sensitive d/t poor cardiac forward flow - additional fluids deferred Check urine osm, serum osm, urine sodium Repeat AM BMP #T2DM: Basal bolus insulin #HTN: Hold Lisinopril #Hyperthyroidism: Continue methimazole #Narcolepsy: Continue Modafinil Dispo: Admit PCU FEN/GI: HH/CC diet VTE ppx: deferred in the setting of thrombocytopenia DNR/DNI History of Present Illness Primary Care Provider: Viral Lai, 74 y/o male with PMHx that includes h/o heart block s/p pacemaker placement, HTN, T2DM, CKD stage 3, right parotid swelling/mass, BPH, TIFFANY, HLD, hyperthyroidism presents with generalized weakness, malaise, fevers. Sx started about 5 days ago. Denies significant arthralgias. Denies new rashes. Denies N/V/D. Denies chest pain. Notes mild shortness of breath but states this is not too far from his baseline, though he has never required home supplemental O2. Has also had poor appetite over past 2 days. ED Course: Labs notable for hyponatremia (Na 121), thrombocytopenia (Plt 59), mild transaminitis, Cr 2.05 (baseline ~1.5) Procal elevated Babesia smear positive Allergies Allergy/AdvReac Type Severity Reaction Status Date / Time atorvastatin Allergy Severe Rash Verified 12/19/24 00:15 Corticosteroids Allergy Severe SWELLING, Verified 12/16/24 08:46 (Glucocorticoids) HIVES AFTER KIDNEY ISSUES Penicillins Allergy Mild RASH Verified 12/16/24 08:46 Home Medications Medication Instructions Recorded Confirmed Type garlic 1,000 mg capsule 1,000 mg PO QAM 03/06/18 12/19/24 History cranberry concentrate-ascorbic 1 cap PO QAM 05/10/19 12/19/24 History acid 4,200 mg-20 mg capsule aspirin 81 mg tablet,delayed 81 mg PO QAM 05/04/20 12/19/24 History release lancets 30 gauge (OneTouch Delica #25 ea 10/25/20 12/16/24 History Lancets) aloe vera 25 mg capsule 75 mg PO QAM 09/19/22 12/19/24 History insulin syringe-needle U-100 1 mL #400 ea 06/26/23 12/16/24 Rx 30 gauge x 1/2" (BD Insulin Syringe Ultra-Fine) vitamin B complex 1 cap PO QAM 01/15/24 12/19/24 History OneTouch Ultra Test (blood sugar #400 ea 02/13/24 12/16/24 Rx diagnostic) modafinil 200 mg tablet (Provigil) 200 mg PO QAM #90 tabs 06/07/24 12/19/24 Rx insulin aspart U-100 100 unit/mL 10 unit subcut TID 06/17/24 12/19/24 History subcutaneous solution (Novolog U-100 Insulin aspart) lisinopril 20 mg tablet 20 mg PO HS #90 tabs 06/18/24 12/19/24 Rx insulin glargine 100 unit/mL 55 unit (0.55 mL) subcut QPM #50 mL 08/04/24 12/19/24 Rx subcutaneous solution (Lantus U-100 Insulin) methimazole 10 mg tablet 10 mg PO UD #90 tabs 09/10/24 12/19/24 Rx furosemide 20 mg tablet 40 mg (2 x 20 mg) PO QAM #90 tabs 10/12/24 12/19/24 Rx Past Med/Surg History Problem List (Updated 12/19/24 @ 05:54 by Stanford Rosado DO) Babesiosis At high risk for tick borne illness (Acute) Fluid overload (Acute) Acute hyponatremia (Acute) Hypoxia (Acute) Generalized weakness Vitamin D deficiency Neck mass (Chronic) Chronic venous insufficiency Mass of right parotid gland Wound of left leg Cardiac pacemaker Hyponatremia Status post placement of cardiac pacemaker Heart block (Acute) AV dissociation Symptomatic bradycardia BPH with obstruction/lower urinary tract symptoms HTN (hypertension) BPH (benign prostatic hyperplasia) Noncompliance RBBB (right bundle branch block) Cheek swelling Dyspnea Uncontrolled type 2 diabetes mellitus (Chronic) Lower extremity edema 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) Goiter Hyperthyroidism Hydrocele Polycythemia (Acute) TIFFANY (obstructive sleep apnea) (Acute) non-compliance Narcolepsy (Acute) Hyperlipidemia (Acute) Medical History History of right bundle branch block (RBBB) Symptomatic bradycardia TIFFANY (obstructive sleep apnea) Narcolepsy Hyperthyroidism Hyperlipidemia HTN (hypertension) Hx of shortness of breath Chronic venous insufficiency BPH (benign prostatic hyperplasia) Venous stasis ulcer of right lower extremity Venous stasis ulcer of left lower extremity Tick bite of right side of chest wall Sinus node dysfunction HOMER (acute kidney injury) Hx of pancreatitis Pacemaker Chronic back pain Pleomorphic adenoma of parotid gland Osteoarthritis Poor historian History of renal failure Cardiac murmur Surgical History History of surgery History of colonoscopy Family History Father Diabetes Blood disorder Grandmother (Maternal) Diabetes Brother Cancer of spleen Other No family history of adverse response to anesthesia Denies family history of Ovarian cancer Prostate cancer Myocardial infarction Breast cancer Colorectal cancer Social History (Reviewed 07/24/25 @ 08:48 by CAROL Lundberg Smoking Status: Never smoker Tobacco Type: Cigarettes Age Started Using Tobacco: 18; Age Quit Using Tobacco: 58; packs per day: 3; Cigarettes Per Day: 30; Second Hand Exposure: Yes (hx); Do You Dip or Chew Tobacco: No; Hx Alcohol Use: No Hx Substance Use: No Preferred Language: Vietnamese Communication Ability: Effective Visual Impairment: No Limitations Hearing Ability: Normal Instructor Warper Required: No Beliefs That Will Affect Care: None marital status: Current Living Situation: Spouse current occupational status: retired How many Children do You have: 2 Other Information That Helps Us Care for You: No Feels Safe at Home: Yes Safety Concerns: Feels Safe At This Time Childhood Exposure to Second-Hand Smoke: Yes Diet: regular caffeine: Yes during the past year weight has: remained stable Dental Care, Regularly: No Physical Activity Frequency: 3-4 Times per Week Seatbelt Use: always Sunscreen Use: Yes Assistive Devices: Glasses Review of Systems Review of Systems: as per HPI Physical Exam Physical Exam: Constitutional: in mild distress, visibly short of breath HEENT: NCAT, no conjunctival injection CV: RRR, extremities well-perfused, no LE edema Resp: Lungs CTAB, +tachypnea, increased work of breathing GI: nondistended, bowel sounds normal, non-tender to palpation MSK: no gross deformities Skin: warm, dry, no rash appreciated Neuro: alert, oriented, no focal neurologic deficit appreciated Results & Data Results & Data Vital Signs (Past 12 Hours) Vital Signs Temp Pulse Pulse Resp BP BP Pulse Ox 12/19/24 01:33 59 L 25 H 102/50 L 93 12/19/24 01:00 66 28 H 116/69 93 12/19/24 00:48 37.1 C 12/19/24 00:30 69 24 105/61 92 12/19/24 00:09 90 27 H 93 12/19/24 00:03 74 25 H 128/72 88 L 12/18/24 23:37 77 12/18/24 23:10 38.7 C H 78 33 H 137/80 91 12/18/24 23:10 38.7 C H 78 33 H 137/80 91 12/18/24 23:09 77 35 H 137/80 91 O2 Del Method O2 Flow Rate 12/19/24 01:33 Nasal Cannula 2 12/19/24 01:00 Nasal Cannula 2 12/19/24 00:48 12/19/24 00:30 Nasal Cannula 2 12/19/24 00:09 Nasal Cannula 2 12/19/24 00:03 12/18/24 23:37 12/18/24 23:10 Room Air 12/18/24 23:10 Room Air 12/18/24 23:09 Supervising Physician Co-Signing Physician Notes Patient seen and examined, chart reviewed, case discussed with Dr. Rosado and I agree with the assessment and plan as above Babesiosis- Atovoquone and Azithromycin. Cover with Doxycycline for now for other possible tick-borne illnesses Stool EPEC - conservative care, IVF and electrolytes HOMER - hold nephrotoxins, monitor renal function. Patient appears dry on physical exam and has had poor intake. Encourage PO intake Pulmonary edema -possible failure. Holding Lasix for now Remainder as above Resident Activity Tracking Resident Involvement: Resident Care Provided Care Provided: Adult Hospital Medicine (8) HTN (hypertension) Hypertension type: primary hypertension Qualified Code(s): I10 - Essential (primary) hypertension
[2024-12-19 02:56] LABS: Adenovirus F 40/41 PCR Not Detected (NotDetected); Campylobacter PCR Not Detected (NotDetected); Enteroaggregative E.coli(EAEC) Not Detected (NotDetected); Shiga-like Toxin E.coli (STEC) Not Detected (NotDetected); Vibrio species PCR Not Detected (NotDetected)
[2024-12-19] MEDS ORDERED: POLYETHYLENE (MIRALAX) 17 GM PACK PO PRN (04:21)
[2024-12-19] MEDS ORDERED: GLUCAGON FOR INJ 1 MG VIAL SQ PRN (04:21)
[2024-12-19] MEDS ORDERED: MELATONIN 3 MG TAB PO PRN (04:21)
[2024-12-19] MEDS ORDERED: GLUCOSE 10 TAB/TUBE PO PRN (04:21)
[2024-12-19] MEDS ORDERED: CARBOHYDRATES FOR HYPOGLYCEMIA PO PRN (04:21)
[2024-12-19] MEDS ORDERED: DEXTROSE 50% 50 ML SYRINGE IV PRN (04:21)
[2024-12-19] MEDS ORDERED: GLUCOSE 40% GEL 15 GM TUBE PO PRN (04:21)
[2024-12-19] MEDS: INSULIN ASPART PER UNIT CHARGE SC SCH (06:10)
[2024-12-19] MEDS: ACETAMINOPHEN 500 MG TAB PO PRN (08:14)
[2024-12-19] MEDS: ASPIRIN 81 MG ECTAB PO SCH (08:58)
[2024-12-19] MEDS: LANTUS PER UNIT CHARGE SQ SCH (08:58)
[2024-12-19] MEDS: ATOVAQUONE 750 MG/5 ML UDC PO SCH (08:59)
[2024-12-19] MEDS: DOXYCYCLINE HYCLATE 100 MG CAP PO SCH (08:59)
[2024-12-19 09:01] LABS: Hematocrit (blood only) 31.7 % (42.0-52.0); Hemoglobin 11.4 g/dl (14.0-18.0); Mean Corpuscular Hemoglobin 30.3 pg (25.0-34.0); Mean Corpuscular Volume 84.3 fL (80.0-100.0); Platelet Count 54 K/uL (130-400); RDW Standard Deviation 44.2 fL (36.4-46.3); Red Blood Count 3.76 M/uL (4.70-6.10); White Blood Count 4.97 K/ul (4.8-10.8)
[2024-12-19 09:23] LABS: Alanine Aminotransferase 54.0 U/L (7-52); Albumin Globulin Ratio 1.2 (0.9-2); Alkaline Phosphatase 44.0 U/L (34-104); Anion Gap 6.0 (3-11); Bilirubin,Total 1.1 mg/dl (0.2-1.0); Blood Urea Nitrogen 38.0 mg/dl (6-23); Calcium 7.9 mg/dl (8.6-10.3); Carbon Dioxide 23.0 mmol/L (21-32); Chloride 94.0 mmol/L (98-107); Creatinine Clr Calc Pharmacy 52.6 ml/min; Globulin 2.9 gm/dl (2.5-4.0); Glucose 284.0 mg/dl (70-99(Fasting)); Potassium 4.5 mmol/L (3.5-5.1); Sodium 123.0 mmol/L (136-145); Total Protein 6.3 gm/dl (6.0-8.3)
[2024-12-19 09:37] LABS: Thyroid Stimulating Hormone 1.061 uIu/ml (0.300-4.500)
--- NOTE | 2024-12-19 09:37 | Hospitalist Progress Note ---
Date of Service December 19, 2024 Assessment & Plan (1) Babesiosis: (2) Acute hyponatremia: (3) Hypoxia: (4) Generalized weakness: (5) Mass of right parotid gland: (6) Status post placement of cardiac pacemaker: (7) Symptomatic bradycardia: (8) HTN (hypertension): (9) Type 2 DM with CKD stage 3 and hypertension: (10) Hyperthyroidism: (11) TIFFANY (obstructive sleep apnea): (12) Hyperlipidemia: Plan 74 y/o male with PMHx that includes h/o heart block s/p pacemaker placement, HTN , T2DM, CKD stage 3, right parotid swelling/mass, BPH, TIFFANY, HLD, hyperthyroidism Noncompliance presents with generalized weakness, malaise, fevers: Babesiosis Demonstrated on peripheral smear Monitor transaminitis and thrombocytopenia Blood cultures NTD Atovaquone azithromycin. Empirical doxycycline pending Remaining tick panel ID consultation Bradycardia Telemetry K greater than 4 mag greater than 2 PPM interrogation Acute CHF exacerbation? Implicated with bradycardia? CHF protocol orders EKG with LBBB Trend troponins Echo and BNP Hold off on diuresis at this time with poor p.o. intake and reevaluate Cardiology consultation Acute hypoxic respiratory failure secondary above Wean O2 HOMER suspect prerenal improving Avoid nephrotoxic meds Hold Lasix, Lisinopril Monitor Severe hyponatremia secondary to poor p.o. intake, SIADH? Slowly improving BMP every 6 hours Avoid overcorrection Cortisol elevated. TFTs pending. Urine osmolality elevated. Follow urine studies. Encourage p.o. intake Nephrology consultation Holding off on IV fluids with questionable CHF Stool positive EPEC Supportive care Diabetes type 2 Uncontrolled A1c 9 Basal bolus insulin Diabetes education and dietitian Hyperthyroidism methimazole Hypertension Home meds Held for soft BP Narcolepsy Modafinil Generalized weakness PT OT DVT prophylaxis SCDs and ambulation DNR/DNI Disposition Continue PCU monitoring Admission and Anticipated Discharge Date Admission Date: December 19, 2024 Subjective Seen at bedside with railway signal technician present. Visibly tachypneic labored breathing. Endorses shortness of breath. Denies chest pain or other cardiopulmonary symptoms. No lightheadedness. Denies abdominal pain fevers chills GI symptoms or really any other symptoms. Not very interactive says yes and no to all my questions seems indifferent Records suggest he is not compliant he tells me he has been compliant with his medications. Denies known history of heart failure. Tells me he is on Lasix for chronic lower extremity edema. Discussed with green building design specialist He confirms he is a DNR/DNI Discussed all aspects of care extensively with ED optoelectronic technician of Systems Review of Systems: as per HPI Physical Exam Physical Exam: Constitutional: in mild distress, visibly short of breath HEENT: NCAT, no conjunctival injection CV: RRR, extremities well-perfused, 2-3+ bilateral pitting edema chronic skin changes Resp: Lungs CTAB, +tachypnea, increased work of breathing GI: nondistended, bowel sounds normal, non-tender to palpation MSK: no gross deformities Skin: warm, dry, no rash appreciated Neuro: alert, oriented, no focal neurologic deficit appreciated Results & Data Results & Data Vital Signs (Past 12 Hours) Vital Signs Temp Pulse Pulse Resp BP BP Pulse Ox 12/19/24 07:24 37.7 C H 12/19/24 07:04 67 20 103/67 95 12/19/24 07:02 67 12/19/24 06:11 69 22 110/62 96 12/19/24 05:27 65 12/19/24 04:34 12/19/24 04:34 12/19/24 04:34 36.9 C 66 23 123/73 96 12/19/24 03:30 68 29 H 126/74 95 12/19/24 03:03 62 28 H 146/71 H 95 12/19/24 02:33 64 27 H 118/66 94 12/19/24 02:00 65 17 104/53 L 94 12/19/24 01:33 59 L 25 H 102/50 L 93 12/19/24 01:00 66 28 H 116/69 93 12/19/24 00:48 37.1 C 12/19/24 00:30 69 24 105/61 92 12/19/24 00:09 90 27 H 93 12/19/24 00:03 74 25 H 128/72 88 L 12/18/24 23:37 77 12/18/24 23:10 38.7 C H 78 33 H 137/80 91 12/18/24 23:10 38.7 C H 78 33 H 137/80 91 12/18/24 23:09 77 35 H 137/80 91 Pulse Ox O2 Del Method O2 Del Method O2 Flow Rate O2 Flow Rate 12/19/24 07:24 12/19/24 07:04 Nasal Cannula 2 12/19/24 07:02 12/19/24 06:11 Nasal Cannula 2 12/19/24 05:27 12/19/24 04:34 Nasal Cannula 2 12/19/24 04:34 96 Nasal Cannula 2 12/19/24 04:34 Nasal Cannula 2 12/19/24 03:30 12/19/24 03:03 12/19/24 02:33 12/19/24 02:00 12/19/24 01:33 Nasal Cannula 2 12/19/24 01:00 Nasal Cannula 2 12/19/24 00:48 12/19/24 00:30 Nasal Cannula 2 12/19/24 00:09 Nasal Cannula 2 12/19/24 00:03 12/18/24 23:37 12/18/24 23:10 Room Air 12/18/24 23:10 Room Air 12/18/24 23:09 Laboratory Results Abnormal Labs 12/18/24 12/18/24 12/19/24 23:18 23:25 00:30 RBC 4.01 L Hgb 12.1 L Hct 33.9 L RDW Coeff of [place] 14.8 H Plt Count 59 L MPV Love # (Auto) 0.99 H APTT 32 H VBG pCO2 33 L Sodium 121 L Chloride 92 L BUN 41 H Creatinine 2.05 H BUN/Creatinine Ratio Glucose 205 H POC Glucose Osmolality Calcium 8.1 L Total Bilirubin 1.3 H Direct Bilirubin 0.4 H AST 53 H ALT 53 H Procalcitonin 1.57 H Cortisol AM Sample Urine Protein 2+ H Urine Ketones 1+ H Urine Blood 1+ H U Hyaline Cast (Auto) 3-5 H Urine Osmolality Stool EPEC (PCR) Babesia Smear See Comment A 12/19/24 12/19/24 12/19/24 00:35 00:58 01:20 RBC Hgb Hct RDW Coeff of [place] Plt Count MPV Love # (Auto) APTT VBG pCO2 Sodium Chloride BUN Creatinine BUN/Creatinine Ratio Glucose POC Glucose Osmolality 272 L Calcium Total Bilirubin Direct Bilirubin AST ALT Procalcitonin Cortisol AM Sample Urine Protein Urine Ketones Urine Blood U Hyaline Cast (Auto) Urine Osmolality 490 L Stool EPEC (PCR) DETECTED A* Babesia Smear 12/19/24 12/19/24 06:05 08:38 RBC 3.76 L Hgb 11.4 L Hct 31.7 L RDW Coeff of [place] Plt Count 54 L MPV 12.6 H Love # (Auto) APTT VBG pCO2 Sodium 123 L Chloride 94 L BUN 38 H Creatinine 1.61 H D BUN/Creatinine Ratio 23.6 H Glucose 284 H POC Glucose 192 H Osmolality Calcium 7.9 L Total Bilirubin 1.1 H Direct Bilirubin AST 49 H ALT 54 H Procalcitonin Cortisol AM Sample 24.38 H Urine Protein Urine Ketones Urine Blood U Hyaline Cast (Auto) Urine Osmolality Stool EPEC (PCR) Babesia Smear Diagnostic Findings Chest X-Ray 12/18/24 23:25 Exam(s): XR CXR 1 VIEW EXAM: XR Chest, 1 View CLINICAL HISTORY: Sepsis. TECHNIQUE: Frontal view of the chest. COMPARISON: 10/27/2021 FINDINGS: Left subclavian dual-chamber pacemaker is present. Heart is enlarged. Mild pulmonary vascular congestion. Hypoventilation. No definite pneumonia. No pleural effusion or pneumothorax. Bones are unchanged. IMPRESSION: Cardiomegaly. Mild pulmonary vascular congestion. Electronically signed by: Nitish Chirinos M.D. 12/19/24 00:58 AM PG Care Time/CCT Total # of Minutes Spent Total Time Spent with Patient: Total time spent is greater than 50% in coordination of care (as documented) at patient's floor/unit and/or counseling patient: Coding Level of Care Code 48221 SUB INP/OBS CARE 3/50MIN Diagnoses Babesiosis B60.00 Acute hyponatremia E87.1 Hypoxia R09.02 Generalized weakness R53.1 Mass of right parotid gland K11.8 Status post placement of cardiac pacemaker Z95.0 Symptomatic bradycardia R00.1 Primary hypertension I10 Hypertension type: primary hypertension Type 2 DM with CKD stage 3 and hypertension E11.22; I12.9; N18.3 Hyperthyroidism E05.90 TIFFANY (obstructive sleep apnea) G47.33 Hyperlipidemia E78.5 (8) HTN (hypertension) Hypertension type: primary hypertension Qualified Code(s): I10 - Essential (primary) hypertension
[2024-12-19] MEDS ORDERED: STAT IV/IM STA (10:13)
--- NOTE | 2024-12-19 10:36 | XCELERA ---
[id number]
--- NOTE | 2024-12-19 10:40 | Cardiology Consultation ---
Date of Consultation December 19, 2024 Assessment & Plan (1) Heart block: (2) Status post placement of cardiac pacemaker: (3) Fluid overload: (4) Chronic kidney disease with active medical management without dialysis, stage 3 (moderate): (5) Hyponatremia: (6) Babesiosis: (7) HTN (hypertension): Plan ASSESSMENT/PLAN: 1. Complete heart block s/p dual-chamber pacemaker: Appears to have appropriate pacemaker function based on today's interrogation. Heart rate reasonable. Continue to follow with EP in the outpatient setting. 2. Hypervolemia: BNP normal. Has known venous insufficiency according to records and CKD. Has not been taking Lasix the past few days. Agree with diuretic which had already been arranged by other providers. Volume status and hyponatremia is being managed by nephrology. 3. CKD: As per nephrology. 4. Hyponatremia: As per nephrology. 5. Babesiosis: As per primary hospitalist service. ID consult is pending. 6. Hypertension: Blood pressure is reasonably controlled. YOCASTA inhibitor currently held. 7. Thrombocytopenia: May be due to babesiosis. Defer to primary hospitalist service. 8. Disposition: Patient care communicated with primary hospitalist, Dr. Garland. Cardiology will sign off at this time as nephrology is managing hyponatremia and volume status. Please call with any further questions or concerns. Thank you for allowing me to participate in the care of your patient. Please call for any other questions or concerns. Sincerely, Clyde Kauffman M.D. History of Present Illness Reason for Consultation: pacemaker and bradycardia Requesting Physician: Jonathon Garland MD Attending Physician: Jonathon Garland MD History of Present Illness Mr. Dunlap is a very pleasant 74-year-old gentleman with history significant for heart block s/p dual-chamber pacemaker, hypertension, dyslipidemia, type 2 diabetes, CKD, right parotid mass, hyperthyroidism. His primary field service technician poultry is Dr. Brumfield. He follows with electrophysiology as he was noted to be in complete heart block with bradycardia in October 2021 and underwent dual-chamber pacemaker implantation on 10/26/2021 ([employer]). He was seen earlier this morning while in the ER. He was admitted on 12/19/2024 and diagnosed with babesiosis infection. He was a poor historian and typically answers questions with yes or no answers. He denied chest pain, edema, or bleeding such as melena, hematochezia, or hematuria. He admitted to orthopnea and shortness of breath. He states that he has not been taking Lasix since he was evaluated at urgent care through [facility] several days ago. He maintains a low-sodium diet. In the outpatient setting, he is followed by nephrology for hyponatremia and CKD. He had been feeling weak with fevers prior to presentation, which prompted his ER visit. He has had poor oral intake over the past couple of days. Review of systems: As above. Family history: Noncontributory. Social history: Quit smoking at the age of 57. Denies alcohol or drug abuse. Lives at home with his . He was unaccompanied in his ER room at the time of today's visit. Allergies Allergy/AdvReac Type Severity Reaction Status Date / Time atorvastatin Allergy Severe Rash Verified 12/19/24 00:15 Corticosteroids Allergy Severe SWELLING, Verified 12/16/24 08:46 (Glucocorticoids) HIVES AFTER KIDNEY ISSUES Penicillins Allergy Mild RASH Verified 12/16/24 08:46 Home Medications Medication Instructions Recorded Confirmed Type garlic 1,000 mg capsule 1,000 mg PO QAM 03/06/18 12/19/24 History cranberry concentrate-ascorbic 1 cap PO QAM 05/10/19 12/19/24 History acid 4,200 mg-20 mg capsule aspirin 81 mg tablet,delayed 81 mg PO QAM 05/04/20 12/19/24 History release lancets 30 gauge (OneTouch Delica #25 ea 10/25/20 12/16/24 History Lancets) aloe vera 25 mg capsule 75 mg PO QAM 09/19/22 12/19/24 History insulin syringe-needle U-100 1 mL #400 ea 06/26/23 12/16/24 Rx 30 gauge x 1/2" (BD Insulin Syringe Ultra-Fine) vitamin B complex 1 cap PO QAM 01/15/24 12/19/24 History OneTouch Ultra Test (blood sugar #400 ea 02/13/24 12/16/24 Rx diagnostic) modafinil 200 mg tablet (Provigil) 200 mg PO QAM #90 tabs 06/07/24 12/19/24 Rx insulin aspart U-100 100 unit/mL 10 unit subcut TID 06/17/24 12/19/24 History subcutaneous solution (Novolog U-100 Insulin aspart) lisinopril 20 mg tablet 20 mg PO HS #90 tabs 06/18/24 12/19/24 Rx insulin glargine 100 unit/mL 55 unit (0.55 mL) subcut QPM #50 mL 08/04/24 12/19/24 Rx subcutaneous solution (Lantus U-100 Insulin) methimazole 10 mg tablet 10 mg PO UD #90 tabs 09/10/24 12/19/24 Rx furosemide 20 mg tablet 40 mg (2 x 20 mg) PO QAM #90 tabs 10/12/24 12/19/24 Rx Problem List Enteropathogenic Escherichia coli infection Chronic kidney disease with active medical management without dialysis, stage 3 (moderate) Babesiosis At high risk for tick borne illness (Acute) Fluid overload (Acute) Acute hyponatremia (Acute) Hypoxia (Acute) Generalized weakness Vitamin D deficiency Neck mass (Chronic) Chronic venous insufficiency Mass of right parotid gland Wound of left leg Cardiac pacemaker Hyponatremia Status post placement of cardiac pacemaker Heart block (Acute) AV dissociation Symptomatic bradycardia BPH with obstruction/lower urinary tract symptoms HTN (hypertension) BPH (benign prostatic hyperplasia) Noncompliance RBBB (right bundle branch block) Cheek swelling Dyspnea Uncontrolled type 2 diabetes mellitus (Chronic) Lower extremity edema 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) Goiter Hyperthyroidism Hydrocele Polycythemia (Acute) TIFFANY (obstructive sleep apnea) (Acute) non-compliance Narcolepsy (Acute) Hyperlipidemia (Acute) Patient History Medical History History of right bundle branch block (RBBB) Symptomatic bradycardia reason for pacemaker TIFFANY (obstructive sleep apnea) non-compliant with device Narcolepsy Hyperthyroidism Hyperlipidemia HTN (hypertension) Hx of shortness of breath no current issues per pt. Chronic venous insufficiency BPH (benign prostatic hyperplasia) Venous stasis ulcer of right lower extremity resolved Venous stasis ulcer of left lower extremity resolved Tick bite of right side of chest wall resolved Sinus node dysfunction HOMER (acute kidney injury) Hx of pancreatitis "years ago" Pacemaker PLACED FOR BRADYCARDIA>IMPLANTED 09/2021/FOLLOWED BY DR. BECKHAM Chronic back pain Pleomorphic adenoma of parotid gland Osteoarthritis Poor historian incorrect History of renal failure unsure stage. f/u dr. mckeon, [facility] Cardiac murmur as a child Surgical History History of surgery HISTORY OF RADIO FREQ DENERVATION IN PAST. History of colonoscopy Family History Father Diabetes Blood disorder Grandmother (Maternal) Diabetes Brother Cancer of spleen Other No family history of adverse response to anesthesia Denies family history of Ovarian cancer Prostate cancer Myocardial infarction Breast cancer Colorectal cancer Social History Smoking Status: Never smoker Tobacco Type: Cigarettes Age Started Using Tobacco: 18; Age Quit Using Tobacco: 58; packs per day: 3; Cigarettes Per Day: 30; Second Hand Exposure: Yes (hx); Do You Dip or Chew Tobacco: No; Hx Alcohol Use: No Hx Substance Use: No Preferred Language: Luxembourgish Communication Ability: Effective Visual Impairment: No Limitations Hearing Ability: Normal Supervisor Of Communications Required: No Beliefs That Will Affect Care: None marital status: Current Living Situation: Spouse current occupational status: retired How many Children do You have: 2 Feels Safe at Home: Yes Childhood Exposure to Second-Hand Smoke: Yes Diet: regular caffeine: Yes during the past year weight has: remained stable Dental Care, Regularly: No Physical Activity Frequency: 3-4 Times per Week Seatbelt Use: always Sunscreen Use: Yes Assistive Devices: Glasses Physical Exam Physical Exam: Gen.: No acute distress. Alert. HEENT: Anicteric sclera. Right facial mass/swelling (chronic per patient). Neck: Thick neck. No bruits. Normal carotid upstrokes bilaterally. Cardiac: Regular. Normal S1-S2. No murmurs, rubs, or gallops. Pulmonary: Decreased breath sounds bilaterally, but otherwise clear to auscultation bilaterally without wheezes, rales, or rhonchi. Abdomen: Soft, nontender, nondistended, with normoactive bowel sounds. No bruits noted. Extremities: 2+ radial pulses bilaterally. 2+ posterior tibialis pulses bilaterally. 1+ bilateral lower extremity edema. No cyanosis. Bilateral lower extremity petechiae. Results & Data Vital Signs (Past 12 Hours) Vital Signs Temp Pulse Pulse Resp BP BP Pulse Ox 12/19/24 07:24 37.7 C H 12/19/24 07:04 67 20 103/67 95 12/19/24 07:02 67 12/19/24 06:11 69 22 110/62 96 12/19/24 05:27 65 12/19/24 04:34 12/19/24 04:34 12/19/24 04:34 36.9 C 66 23 123/73 96 12/19/24 03:30 68 29 H 126/74 95 12/19/24 03:03 62 28 H 146/71 H 95 12/19/24 02:33 64 27 H 118/66 94 12/19/24 02:00 65 17 104/53 L 94 12/19/24 01:33 59 L 25 H 102/50 L 93 12/19/24 01:00 66 28 H 116/69 93 12/19/24 00:48 37.1 C 12/19/24 00:30 69 24 105/61 92 12/19/24 00:09 90 27 H 93 12/19/24 00:03 74 25 H 128/72 88 L 12/18/24 23:37 77 12/18/24 23:10 38.7 C H 78 33 H 137/80 91 12/18/24 23:10 38.7 C H 78 33 H 137/80 91 12/18/24 23:09 77 35 H 137/80 91 Pulse Ox O2 Del Method O2 Del Method O2 Flow Rate O2 Flow Rate 12/19/24 07:24 12/19/24 07:04 Nasal Cannula 2 12/19/24 07:02 12/19/24 06:11 Nasal Cannula 2 12/19/24 05:27 12/19/24 04:34 Nasal Cannula 2 12/19/24 04:34 96 Nasal Cannula 2 12/19/24 04:34 Nasal Cannula 2 12/19/24 03:30 12/19/24 03:03 12/19/24 02:33 12/19/24 02:00 12/19/24 01:33 Nasal Cannula 2 12/19/24 01:00 Nasal Cannula 2 12/19/24 00:48 12/19/24 00:30 Nasal Cannula 2 12/19/24 00:09 Nasal Cannula 2 12/19/24 00:03 12/18/24 23:37 12/18/24 23:10 Room Air 12/18/24 23:10 Room Air 12/18/24 23:09 Intake & Output 12/17/24 12/18/24 12/19/24 12/20/24 06:59 06:59 06:59 06:59 Intake Total 600 / 600 50 / 50 Output Total 450 / 450 2950 / 2950 Balance 150 / 150 -2900 / -2900 Weight 252 lb 6.868 oz Laboratory Results Laboratory Results - last 24 hr 12/18/24 12/18/24 12/19/24 23:18 23:25 00:03 WBC 6.25 RBC 4.01 L Hgb 12.1 L Hct 33.9 L MCV 84.5 MCH 30.2 MCHC 35.7 RDW Std Deviation 46.0 RDW Coeff of [place] 14.8 H Plt Count 59 L MPV 12.2 Immature Gran % (Auto) 0.5 Neut % (Auto) 62.2 Lymph % (Auto) 21.0 Sampson % (Auto) 15.8 Eos % (Auto) 0.2 Baso % (Auto) 0.3 Neut # (Auto) 3.89 Lymph # (Auto) 1.31 Sampson # (Auto) 0.99 H Eos # (Auto) 0.01 Baso # (Auto) 0.02 Immature Gran # (Auto) 0.03 Peripher Smr Path Cons Pending PT 12.0 INR 1.1 APTT 32 H PTT Ratio 1.2 VBG pH 7.41 VBG pCO2 33 L VBG pO2 47 VBG HCO3 21 VBG O2 Saturation 80.8 VBG Base Excess -2.9 Sodium 121 L Potassium 4.3 Chloride 92 L Carbon Dioxide 21 Anion Gap 8 BUN 41 H Creatinine 2.05 H Est Cr Clr Drug Dosing 41.3 eGFR 33.79 BUN/Creatinine Ratio 20.0 Glucose 205 H POC Glucose Osmolality Lactate 1.1 Calcium 8.1 L Magnesium 1.8 Total Bilirubin 1.3 H Direct Bilirubin 0.4 H AST 53 H ALT 53 H Alkaline Phosphatase 49 Troponin I High Sens 15.1 B-Natriuretic Peptide Total Protein 7.0 Albumin 3.8 Globulin Albumin/Globulin Ratio Procalcitonin 1.57 H TSH Cortisol AM Sample Urine Color Urine Appearance Urine pH Ur Specific [place] Urine Protein Urine Glucose (UA) Urine Ketones Urine Blood Urine Nitrite Urine Bilirubin Urine Urobilinogen Ur Leukocyte Esterase Urine WBC (Auto) Urine RBC (Auto) U Hyaline Cast (Auto) U Epithel Cells (Auto) Urine Bacteria (Auto) Urine Osmolality Ur Random Sodium Urine Comment Stl C. cayetanensis PCR Stool Rotavirus A PCR Stl Adenov F 40/41 PCR Stool Astrovirus (PCR) Stool Campylobacter PCR Stl C. diff Tox B Gene Stl C. diff [id number]-[id number] Stool Cryptosporidium PCR Stl E.coli Shiga Tox PCR Stl Enterotoxigenic E PCR Stool EPEC (PCR) Stool EAEC (PCR) Stl E. histolytica PCR Stool Giardia Lamblia PCR Stool Salmonella PCR Stool Sapovirus (PCR) Stl P. shigelloides PCR Stl Shigella/EIEC PCR St Y.enterocolitica PCR Stool Vibrio (PCR) Stl Vibrio cholerae PCR Stl Norovirus GI/GII PCR Adenovirus (PCR) Not Detected Anaplasma Smear See Comment A. phagocytophilum DNA Babesia Smear See Comment A Babesia microti DNA PCR B. pertussis DNA (PCR) Not Detected B.parapertussis DNA PCR Not Detected Lyme Disease Screen C. pneumoniae DNA (PCR) Not Detected Coronavirus OC43 (PCR) Not Detected Coronavirus HKU1 (PCR) Not Detected Coronavirus 229E (PCR) Not Detected SARS-CoV-2 (PCR) Not Detected Coronavirus NL63 (PCR) Not Detected Ehrlichia DNA (PCR) Human Metapneumovir PCR Not Detected Influenza Type A (PCR) Not Detected Influenza Type B (PCR) Not Detected M. pneumoniae (PCR) Not Detected Parainfluenza 1 (PCR) Not Detected Parainfluenza 2 (PCR) Not Detected Parainfluenza 3 (PCR) Not Detected Parainfluenza 4 (PCR) Not Detected Q Fever Phase I IgG Ab Q Fever Phase I IgM Ab Q Fever Phase II IgG Ab Q Fever Phase II IgM Ab RSV (PCR) Not Detected Entero/Rhino (PCR) Not Detected Rickettsia IgG Ab Rickettsia IgM Ab Typhus Fever IgG Ab Typhus Fever IgM Ab 12/19/24 12/19/24 12/19/24 00:30 00:35 00:58 WBC RBC Hgb Hct MCV MCH MCHC RDW Std Deviation RDW Coeff of [place] Plt Count MPV Immature Gran % (Auto) Neut % (Auto) Lymph % (Auto) Sampson % (Auto) Eos % (Auto) Baso % (Auto) Neut # (Auto) Lymph # (Auto) Sampson # (Auto) Eos # (Auto) Baso # (Auto) Immature Gran # (Auto) Peripher Smr Path Cons PT INR APTT PTT Ratio VBG pH VBG pCO2 VBG pO2 VBG HCO3 VBG O2 Saturation VBG Base Excess Sodium Potassium Chloride Carbon Dioxide Anion Gap BUN Creatinine Est Cr Clr Drug Dosing eGFR BUN/Creatinine Ratio Glucose POC Glucose Osmolality 272 L Lactate Calcium Magnesium Total Bilirubin Direct Bilirubin AST ALT Alkaline Phosphatase Troponin I High Sens B-Natriuretic Peptide Total Protein Albumin Globulin Albumin/Globulin Ratio Procalcitonin TSH Cortisol AM Sample Urine Color Yellow Urine Appearance Clear Urine pH 5.5 Ur Specific [place] 1.016 Urine Protein 2+ H Urine Glucose (UA) Negative Urine Ketones 1+ H Urine Blood 1+ H Urine Nitrite Negative Urine Bilirubin Negative Urine Urobilinogen Negative Ur Leukocyte Esterase Negative Urine WBC (Auto) 0-5 Urine RBC (Auto) 0-2 U Hyaline Cast (Auto) 3-5 H U Epithel Cells (Auto) 0-2 Urine Bacteria (Auto) None Seen Urine Osmolality 490 L Ur Random Sodium 34 Urine Comment Stl C. cayetanensis PCR Stool Rotavirus A PCR Stl Adenov F 40/41 PCR Stool Astrovirus (PCR) Stool Campylobacter PCR Stl C. diff Tox B Gene Stl C. diff [id number] Stool Cryptosporidium PCR Stl E.coli Shiga Tox PCR Stl Enterotoxigenic E PCR Stool EPEC (PCR) Stool EAEC (PCR) Stl E. histolytica PCR Stool Giardia Lamblia PCR Stool Salmonella PCR Stool Sapovirus (PCR) Stl P. shigelloides PCR Stl Shigella/EIEC PCR St Y.enterocolitica PCR Stool Vibrio (PCR) Stl Vibrio cholerae PCR Stl Norovirus GI/GII PCR Adenovirus (PCR) Anaplasma Smear A. phagocytophilum DNA Babesia Smear Babesia microti DNA PCR B. pertussis DNA (PCR) B.parapertussis DNA PCR Lyme Disease Screen Negative C. pneumoniae DNA (PCR) Coronavirus OC43 (PCR) Coronavirus HKU1 (PCR) Coronavirus 229E (PCR) SARS-CoV-2 (PCR) Coronavirus NL63 (PCR) Ehrlichia DNA (PCR) Human Metapneumovir PCR Influenza Type A (PCR) Influenza Type B (PCR) M. pneumoniae (PCR) Parainfluenza 1 (PCR) Parainfluenza 2 (PCR) Parainfluenza 3 (PCR) Parainfluenza 4 (PCR) Q Fever Phase I IgG Ab Q Fever Phase I IgM Ab Q Fever Phase II IgG Ab Q Fever Phase II IgM Ab RSV (PCR) Entero/Rhino (PCR) Rickettsia IgG Ab Rickettsia IgM Ab Typhus Fever IgG Ab Typhus Fever IgM Ab 12/19/24 12/19/24 12/19/24 01:20 01:31 06:05 WBC RBC Hgb Hct MCV MCH MCHC RDW Std Deviation RDW Coeff of [place] Plt Count MPV Immature Gran % (Auto) Neut % (Auto) Lymph % (Auto) Sampson % (Auto) Eos % (Auto) Baso % (Auto) Neut # (Auto) Lymph # (Auto) Sampson # (Auto) Eos # (Auto) Baso # (Auto) Immature Gran # (Auto) Peripher Smr Path Cons PT INR APTT PTT Ratio VBG pH VBG pCO2 VBG pO2 VBG HCO3 VBG O2 Saturation VBG Base Excess Sodium Potassium Chloride Carbon Dioxide Anion Gap BUN Creatinine Est Cr Clr Drug Dosing eGFR BUN/Creatinine Ratio Glucose POC Glucose 192 H Osmolality Lactate Calcium Magnesium Total Bilirubin Direct Bilirubin AST ALT Alkaline Phosphatase Troponin I High Sens B-Natriuretic Peptide Total Protein Albumin Globulin Albumin/Globulin Ratio Procalcitonin TSH Cortisol AM Sample Urine Color Urine Appearance Urine pH Ur Specific [place] Urine Protein Urine Glucose (UA) Urine Ketones Urine Blood Urine Nitrite Urine Bilirubin Urine Urobilinogen Ur Leukocyte Esterase Urine WBC (Auto) Urine RBC (Auto) U Hyaline Cast (Auto) U Epithel Cells (Auto) Urine Bacteria (Auto) Urine Osmolality Ur Random Sodium Urine Comment Stl C. cayetanensis PCR Not Detected Stool Rotavirus A PCR Not Detected Stl Adenov F 40/41 PCR Not Detected Stool Astrovirus (PCR) Not Detected Stool Campylobacter PCR Not Detected Stl C. diff Tox B Gene Negative Cdiff Gene Stl C. diff [id number] NEGATIVE Stool Cryptosporidium PCR Not Detected Stl E.coli Shiga Tox PCR Not Detected Stl Enterotoxigenic E PCR Not Detected Stool EPEC (PCR) DETECTED A* Stool EAEC (PCR) Not Detected Stl E. histolytica PCR Not Detected Stool Giardia Lamblia PCR Not Detected Stool Salmonella PCR Not Detected Stool Sapovirus (PCR) Not Detected Stl P. shigelloides PCR Not Detected Stl Shigella/EIEC PCR Not Detected St Y.enterocolitica PCR Not Detected Stool Vibrio (PCR) Not Detected Stl Vibrio cholerae PCR Not Detected Stl Norovirus GI/GII PCR Not Detected Adenovirus (PCR) Anaplasma Smear A. phagocytophilum DNA Pending Babesia Smear Babesia microti DNA PCR Pending B. pertussis DNA (PCR) B.parapertussis DNA PCR Lyme Disease Screen C. pneumoniae DNA (PCR) Coronavirus OC43 (PCR) Coronavirus HKU1 (PCR) Coronavirus 229E (PCR) SARS-CoV-2 (PCR) Coronavirus NL63 (PCR) Ehrlichia DNA (PCR) Pending Human Metapneumovir PCR Influenza Type A (PCR) Influenza Type B (PCR) M. pneumoniae (PCR) Parainfluenza 1 (PCR) Parainfluenza 2 (PCR) Parainfluenza 3 (PCR) Parainfluenza 4 (PCR) Q Fever Phase I IgG Ab Pending Q Fever Phase I IgM Ab Pending Q Fever Phase II IgG Ab Pending Q Fever Phase II IgM Ab Pending RSV (PCR) Entero/Rhino (PCR) Rickettsia IgG Ab Pending Rickettsia IgM Ab Pending Typhus Fever IgG Ab Pending Typhus Fever IgM Ab Pending 12/19/24 12/19/24 08:38 08:38 WBC 4.97 RBC 3.76 L Hgb 11.4 L Hct 31.7 L MCV 84.3 MCH 30.3 MCHC 36.0 RDW Std Deviation 44.2 RDW Coeff of [place] 14.3 Plt Count 54 L MPV 12.6 H Immature Gran % (Auto) Neut % (Auto) Lymph % (Auto) Sampson % (Auto) Eos % (Auto) Baso % (Auto) Neut # (Auto) Lymph # (Auto) Sampson # (Auto) Eos # (Auto) Baso # (Auto) Immature Gran # (Auto) Peripher Smr Path Cons PT INR APTT PTT Ratio VBG pH VBG pCO2 VBG pO2 VBG HCO3 VBG O2 Saturation VBG Base Excess Sodium 123 L Potassium 4.5 Chloride 94 L Carbon Dioxide 23 Anion Gap 6 BUN 38 H Creatinine 1.61 H D Est Cr Clr Drug Dosing 52.6 eGFR 45.16 BUN/Creatinine Ratio 23.6 H Glucose 284 H POC Glucose Osmolality Lactate Calcium 7.9 L Magnesium Total Bilirubin 1.1 H Direct Bilirubin AST 49 H ALT 54 H Alkaline Phosphatase 44 Troponin I High Sens 13.4 12.9 B-Natriuretic Peptide 60 Total Protein 6.3 Albumin 3.4 Globulin 2.9 Albumin/Globulin Ratio 1.2 Procalcitonin TSH 1.061 Cortisol AM Sample 24.38 H Urine Color Urine Appearance Urine pH Ur Specific [place] Urine Protein Urine Glucose (UA) Urine Ketones Urine Blood Urine Nitrite Urine Bilirubin Urine Urobilinogen Ur Leukocyte Esterase Urine WBC (Auto) Urine RBC (Auto) U Hyaline Cast (Auto) U Epithel Cells (Auto) Urine Bacteria (Auto) Urine Osmolality Ur Random Sodium Urine Comment Stl C. cayetanensis PCR Stool Rotavirus A PCR Stl Adenov F 40/41 PCR Stool Astrovirus (PCR) Stool Campylobacter PCR Stl C. diff Tox B Gene Stl C. diff [id number] Stool Cryptosporidium PCR Stl E.coli Shiga Tox PCR Stl Enterotoxigenic E PCR Stool EPEC (PCR) Stool EAEC (PCR) Stl E. histolytica PCR Stool Giardia Lamblia PCR Stool Salmonella PCR Stool Sapovirus (PCR) Stl P. shigelloides PCR Stl Shigella/EIEC PCR St Y.enterocolitica PCR Stool Vibrio (PCR) Stl Vibrio cholerae PCR Stl Norovirus GI/GII PCR Adenovirus (PCR) Anaplasma Smear A. phagocytophilum DNA Babesia Smear Babesia microti DNA PCR B. pertussis DNA (PCR) B.parapertussis DNA PCR Lyme Disease Screen C. pneumoniae DNA (PCR) Coronavirus OC43 (PCR) Coronavirus HKU1 (PCR) Coronavirus 229E (PCR) SARS-CoV-2 (PCR) Coronavirus NL63 (PCR) Ehrlichia DNA (PCR) Human Metapneumovir PCR Influenza Type A (PCR) Influenza Type B (PCR) M. pneumoniae (PCR) Parainfluenza 1 (PCR) Parainfluenza 2 (PCR) Parainfluenza 3 (PCR) Parainfluenza 4 (PCR) Q Fever Phase I IgG Ab Q Fever Phase I IgM Ab Q Fever Phase II IgG Ab Q Fever Phase II IgM Ab RSV (PCR) Entero/Rhino (PCR) Rickettsia IgG Ab Rickettsia IgM Ab Typhus Fever IgG Ab Typhus Fever IgM Ab Diagnostic Findings ECHO 12/19/24: 1. Top normal left ventricular size with normal systolic function. Estimated EF 55-60%. No regional wall motion abnormalities. Septal motion consistent with bundle branch block/pacemaker. Moderate concentric left ventricular hypertrophy. 2. Normal right ventricular size and systolic function. 3. Mild left atrial dilation. 4. No significant valvular abnormalities. 5. Normal estimated right ventricular systolic pressure. 6. Technically difficult study, enhanced with IV Definity. 7. No significant change from prior study on 10/26/2021. Labs reviewed and notable for hyponatremia, abnormal but stable renal function, mildly elevated transaminase levels, normal TSH, mild anemia, new thrombocytopenia. Normal BNP. Normal high-sensitivity troponin x 3. ECG personally reviewed from 12/18/2024: Sinus rhythm. Atrial sensed and ventricular paced. 76 bpm. History and physical report reviewed. Chest x-ray 12/18/2024: Mild pulmonary vascular congestion per radiology. Chest x-ray personally reviewed. No obvious infiltrate. Pacemaker interrogation report reviewed from 12/19/2024: Ventricular pacing 100% of the time. Atrial pacing 78% of the time. DDDR. Testttronic. Medications Administered Current Inpatient Medications Acetaminophen (Acetaminophen 500 Mg Tab) 1,000 mg PO Q8H PRN PRN Reason: Pain or Fever Stop: 01/18/25 04:20 Last Admin: 12/19/24 08:14 Dose: 1,000 mg Aspirin (Aspirin 81 Mg Ectab) 81 mg PO QAM [facility] Stop: 01/18/25 08:59 Last Admin: 12/19/24 08:58 Dose: 81 mg Atovaquone (Atovaquone 750 Mg/5 Ml Udc) 750 mg PO Q12H MICHELLE Stop: 01/18/25 08:59 Last Admin: 12/19/24 08:59 Dose: 750 mg Dextrose (Dextrose 50% 50 Ml Syringe) 25 - 50 ml IV UD PRN; Protocol PRN Reason: Hypoglycemia Protocol Stop: 01/18/25 04:20 Doxycycline Hyclate (Doxycycline Hyclate 100 Mg Cap) 100 mg PO BID [facility] Stop: 12/21/24 08:59 Last Admin: 12/19/24 08:59 Dose: 100 mg Glucagon (Glucagon For Inj 1 Mg Vial) 1 mg SQ UD PRN; Protocol PRN Reason: Hypoglycemia Protocol Stop: 01/18/25 04:20 Glucose (Glucose 40% Gel 15 Gm Tube) 15 - 30 gm PO UD PRN; Protocol PRN Reason: Hypoglycemia Protocol Stop: 01/18/25 04:20 Glucose (Glucose 10 Tab/Tube) 4 - 8 tab PO UD PRN; Protocol PRN Reason: Hypoglycemia Protocol Stop: 01/18/25 04:20 Azithromycin (Zithromax) 500 mg in 255 mls @ 127.5 mls/hr IV Q24H MICHELLE Stop: 12/26/24 22:59 Insulin Aspart (Insulin Aspart Per Unit Charge) 0 units SC ACHS MICHELLE Stop: 01/18/25 04:44 Last Admin: 12/19/24 08:18 Dose: Not Given Insulin Glargine (Lantus Per Unit Charge) 15 units SQ BID MICHELLE Stop: 01/18/25 08:59 Last Admin: 12/19/24 08:58 Dose: 15 units Lisinopril (Lisinopril 20 Mg Tab) 20 mg PO HS MICHELLE Stop: 01/18/25 20:59 Melatonin (Melatonin 3 Mg Tab) 3 mg PO HS PRN PRN Reason: Sleep Stop: 01/18/25 04:20 Methimazole (Methimazole 5 Mg Tablet) 10 mg PO UD MICHELLE Stop: 01/18/25 04:20 Miscellaneous (Carbohydrates For Hypoglycemia ) 15 - 30 gm PO UD PRN PRN Reason: Hypoglycemia Protocol Stop: 01/18/25 04:20 Modafinil (Modafinil 100 Mg Tab) 200 mg PO QAM [facility] Stop: 01/18/25 08:59 Ondansetron HCl (Ondansetron Inj 2 Mg/Ml 2 Ml Vial) 4 mg IV Q6H PRN PRN Reason: Nausea Stop: 01/18/25 04:20 Polyethylene Glycol (Polyethylene (Miralax) 17 Gm Pack) 17 gm PO DAILY PRN PRN Reason: Constipation Stop: 01/18/25 04:20 PG Care Time/CCT Total # of Minutes Spent Total Time Spent with Patient: Total time spent is greater than 50% in coordination of care (as documented) at patient's floor/unit and/or counseling patient: Coding Level of Care Code 24288 INT INP/OBS CARE 2/55MIN Diagnoses Heart block I45.9 Status post placement of cardiac pacemaker Z95.0 Fluid overload E87.70 Chronic kidney disease with active medical management without dialysis, stage 3 (moderate) N18.30 Hyponatremia E87.1 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
--- NOTE | 2024-12-19 10:45 | Nephrology Consultation ---
Date of Consultation December 19, 2024 Assessment & Plan (1) Hyponatremia: * H/O SIADH managed as an outpatient with fluid restriction and low-dose furosemide. Denny 34, Uosm 490 this admission. * Patient is currently asymptomatic but appears clinically volume overloaded and has GI upset related to enteropathogenic E. coli infection * Will provide 50 cc 3% NaCl IV x 1 followed by furosemide 20 mg IV x 1 * Stat BMP at 1400 hrs. Target is to raise serum sodium by 6-8 mEq over the next 24 hours * Follow-up BMP ordered for a.m. (2) HOMER (acute kidney injury): * AKImultifactorial including underlying babesiosis, E. coli infection and volume overload * Lisinopril has been held * Continue supportive care. Will consider renal imaging only if kidney function fails to stabilize (3) Chronic kidney disease with active medical management without dialysis, stage 3 (moderate): * CKD stage G3 (moderate impairment). Baseline creatinine has been 1.42.0. Renal impairment has been attributed to diabetic nephropathy and hypertensive nephrosclerosis. (4) Fluid overload: * Furosemide 20 mg IV x 1 has been ordered * Monitor I&O * 12/19/24 echo: LVEF 55-60%, no RMA, moderate LVH. No significant valvular abnormality. No change compared to 10/26/2021 (5) Babesiosis: * On atovaquone, azithromycin (6) Enteropathogenic Escherichia coli infection: * Supportive care History of Present Illness Reason for Consultation: Hyponatremia, HOMER/CKD Attending Physician: Jonathon Garland MD History of Present Illness Mr. Dunlap is a 74-year-old white male who is seen at the request of the [facility] hospitalist service for evaluation of hyponatremia, HOMER/CKD. Information for the HPI is obtained from direct patient interview and review of the EMR. HPI summarized as follows: Mr. Dunlap is known to [facility] nephrology. He is cared for by Dr. Kenneth Denney. He has chronic hyponatremia with serum sodium 155048 mmol/L attributed to SIADH. This has been managed with furosemide 20 mg p.o. daily and 1500 cc/day oral fluid restriction. He also suffers from CKD. Baseline creatinine has been 1.42.0. Renal impairment has been attributed to diabetic nephropathy and hypertensive nephrosclerosis. SGLT2 inhibitor therapy has been considered as outpatient but not yet implemented. Mr. Dunlap presented to the emergency department last evening for evaluation of generalized weakness, malaise and fever x 5 days. 1500 cc 0.9NS was administered. Emergency room evaluation revealed Na 121, Cr 2.05, Plt 59, Babesia smear was positive. Stool was positive for enteropathogenic E. Coli. CXR shows cardiomegaly with mild pulmonary vascular congestion. Mr. Dunlap reports that he has 2 dogs. He does work out in the yard, however has had no known tick exposure. He denies any skin rash. He denies CR, focal neurologic weakness. PMH: SIADH, CKD stage G3, AODM, HTN, heart block s/p pacemaker placement, right parotid swelling/mass, BPH, TIFFANY, HLD, hyperthyroidism, narcolepsy, chronic venous insufficiency Allergies Allergy/AdvReac Type Severity Reaction Status Date / Time atorvastatin Allergy Severe Rash Verified 12/19/24 00:15 Corticosteroids Allergy Severe SWELLING, Verified 12/16/24 08:46 (Glucocorticoids) HIVES AFTER KIDNEY ISSUES Penicillins Allergy Mild RASH Verified 12/16/24 08:46 Home Medications Medication Instructions Recorded Confirmed Type garlic 1,000 mg capsule 1,000 mg PO QAM 03/06/18 12/19/24 History cranberry concentrate-ascorbic 1 cap PO QAM 05/10/19 12/19/24 History acid 4,200 mg-20 mg capsule aspirin 81 mg tablet,delayed 81 mg PO QAM 05/04/20 12/19/24 History release lancets 30 gauge (OneTouch Delica #25 ea 10/25/20 12/16/24 History Lancets) aloe vera 25 mg capsule 75 mg PO QAM 09/19/22 12/19/24 History insulin syringe-needle U-100 1 mL #400 ea 06/26/23 12/16/24 Rx 30 gauge x 1/2" (BD Insulin Syringe Ultra-Fine) vitamin B complex 1 cap PO QAM 01/15/24 12/19/24 History OneTouch Ultra Test (blood sugar #400 ea 02/13/24 12/16/24 Rx diagnostic) modafinil 200 mg tablet (Provigil) 200 mg PO QAM #90 tabs 06/07/24 12/19/24 Rx insulin aspart U-100 100 unit/mL 10 unit subcut TID 06/17/24 12/19/24 History subcutaneous solution (Novolog U-100 Insulin aspart) lisinopril 20 mg tablet 20 mg PO HS #90 tabs 06/18/24 12/19/24 Rx insulin glargine 100 unit/mL 55 unit (0.55 mL) subcut QPM #50 mL 08/04/24 12/19/24 Rx subcutaneous solution (Lantus U-100 Insulin) methimazole 10 mg tablet 10 mg PO UD #90 tabs 09/10/24 12/19/24 Rx furosemide 20 mg tablet 40 mg (2 x 20 mg) PO QAM #90 tabs 10/12/24 12/19/24 Rx Patient History Medical History History of right bundle branch block (RBBB) Symptomatic bradycardia reason for pacemaker TIFFANY (obstructive sleep apnea) non-compliant with device Narcolepsy Hyperthyroidism Hyperlipidemia HTN (hypertension) Hx of shortness of breath no current issues per pt. Chronic venous insufficiency BPH (benign prostatic hyperplasia) Venous stasis ulcer of right lower extremity resolved Venous stasis ulcer of left lower extremity resolved Tick bite of right side of chest wall resolved Sinus node dysfunction HOMER (acute kidney injury) Hx of pancreatitis "years ago" Pacemaker PLACED FOR BRADYCARDIA>IMPLANTED 09/2021/FOLLOWED BY DR. BECKHAM Chronic back pain Pleomorphic adenoma of parotid gland Osteoarthritis Poor historian incorrect History of renal failure unsure stage. f/u dr. denney [place] nephrology Cardiac murmur as a child Surgical History History of surgery HISTORY OF RADIO FREQ DENERVATION IN PAST. History of colonoscopy Family History Father Diabetes Blood disorder Grandmother (Maternal) Diabetes Brother Cancer of spleen Other No family history of adverse response to anesthesia Denies family history of Ovarian cancer Prostate cancer Myocardial infarction Breast cancer Colorectal cancer Social History Smoking Status: Never smoker Tobacco Type: Cigarettes Age Started Using Tobacco: 18; Age Quit Using Tobacco: 58; packs per day: 3; Cigarettes Per Day: 30; Second Hand Exposure: Yes (hx); Do You Dip or Chew Tobacco: No; Hx Alcohol Use: No Hx Substance Use: No Preferred Language: Ukrainian Communication Ability: Effective Visual Impairment: No Limitations Hearing Ability: Normal Action Installer Required: No Beliefs That Will Affect Care: None marital status: Current Living Situation: Spouse current occupational status: retired How many Children do You have: 2 Other Information That Helps Us Care for You: No Feels Safe at Home: Yes Safety Concerns: Feels Safe At This Time Childhood Exposure to Second-Hand Smoke: Yes Diet: regular caffeine: Yes during the past year weight has: remained stable Dental Care, Regularly: No Physical Activity Frequency: 3-4 Times per Week Seatbelt Use: always Sunscreen Use: Yes Assistive Devices: Glasses Review of Systems Constitutional: + fever, + body aches, + malaise and + w eakness Eyes: no problem reported Ear, Nose, Mouth, Throat: no problem reported Respiratory: no cough and no dyspnea Cardiovascular: + dyspnea on exertion; no chest pain Gastrointestinal: no abdominal pain, no nausea, no vomiting and no diarrhea/loose stools Genitourinary: no problem reported Integumentary: no rash Neurologic: no localized weakness Physical Exam Constitutional: not in distress Eyes: PERRL, conjunctivae normal, anicteric sclerae ENMT: external ear and nose normal, oropharynx normal Neck: trachea midline, no thyromegaly Respiratory: normal respiratory effort, lungs clear to auscultation Cardiovascular: Rate/Rhythm: regular rate and regular rhythm Extremities: + edema (1+ dependent edema of arms and legs) Gastrointestinal (Abdomen): normal bowel sounds, soft, nontender, no hepatosplenomegaly Musculoskeletal: Extremities: no cyanosis and no clubbing Skin: venous stasis involving B LE Neurologic: no focal motor deficits Results & Data Vital Signs (Past 12 Hours) Vital Signs Temp Pulse Pulse Resp BP BP Pulse Ox 12/19/24 07:24 37.7 C H 12/19/24 07:04 67 20 103/67 95 12/19/24 07:02 67 12/19/24 06:11 69 22 110/62 96 12/19/24 05:27 65 12/19/24 04:34 12/19/24 04:34 12/19/24 04:34 36.9 C 66 23 123/73 96 12/19/24 03:30 68 29 H 126/74 95 12/19/24 03:03 62 28 H 146/71 H 95 12/19/24 02:33 64 27 H 118/66 94 12/19/24 02:00 65 17 104/53 L 94 12/19/24 01:33 59 L 25 H 102/50 L 93 12/19/24 01:00 66 28 H 116/69 93 12/19/24 00:48 37.1 C 12/19/24 00:30 69 24 105/61 92 12/19/24 00:09 90 27 H 93 12/19/24 00:03 74 25 H 128/72 88 L 12/18/24 23:37 77 12/18/24 23:10 38.7 C H 78 33 H 137/80 91 12/18/24 23:10 38.7 C H 78 33 H 137/80 91 12/18/24 23:09 77 35 H 137/80 91 Pulse Ox O2 Del Method O2 Del Method O2 Flow Rate O2 Flow Rate 12/19/24 07:24 12/19/24 07:04 Nasal Cannula 2 12/19/24 07:02 12/19/24 06:11 Nasal Cannula 2 12/19/24 05:27 12/19/24 04:34 Nasal Cannula 2 12/19/24 04:34 96 Nasal Cannula 2 12/19/24 04:34 Nasal Cannula 2 12/19/24 03:30 12/19/24 03:03 12/19/24 02:33 12/19/24 02:00 12/19/24 01:33 Nasal Cannula 2 12/19/24 01:00 Nasal Cannula 2 12/19/24 00:48 12/19/24 00:30 Nasal Cannula 2 12/19/24 00:09 Nasal Cannula 2 12/19/24 00:03 12/18/24 23:37 12/18/24 23:10 Room Air 12/18/24 23:10 Room Air 12/18/24 23:09 Laboratory Results Laboratory Results WBC 4.97 K/ul (4.8-10.8) 12/19/24 08:38 RBC 3.76 M/uL (4.70-6.10) L 12/19/24 08:38 Hgb 11.4 g/dl (14.0-18.0) L 12/19/24 08:38 Hct 31.7 % (42.0-52.0) L 12/19/24 08:38 MCV 84.3 fL (80.0-100.0) 12/19/24 08:38 MCH 30.3 pg (25.0-34.0) 12/19/24 08:38 MCHC 36.0 g/dL (32.0-36.0) 12/19/24 08:38 RDW Std Deviation 44.2 fL (36.4-46.3) 12/19/24 08:38 RDW Coeff of [place] 14.3 % (11.5-14.5) 12/19/24 08:38 Plt Count 54 K/uL (130-400) L 12/19/24 08:38 MPV 12.6 fL (9.4-12.4) H 12/19/24 08:38 Immature Gran % (Auto) 0.5 % 12/18/24 23: Neut % (Auto) 62.2 % 12/18/24 23: Lymph % (Auto) 21.0 % 12/18/24 23:25 [place] % (Auto) 15.8 % 12/18/24 23:25 Eos % (Auto) 0.2 % 12/18/24 23: Baso % (Auto) 0.3 % 12/18/24: Neut # (Auto) 3.89 K/uL (1.40-6.50) 12/18/24 23: Lymph # (Auto) 1.31 K/uL (1.20-3.40) 12/18/24 23:25 [place] # (Auto) 0.99 K/uL (0.11-0.59) H 12/18/24 23:25 Eos # (Auto) 0.01 K/uL (0.00-0.50) 12/18/24: Baso # (Auto) 0.02 K/uL (0.00-0.20) 12/18/24 23: Immature Gran # (Auto) 0.03 K/uL (0.01-0.20) 12/18/24 23: PT 12.0 Seconds (9.0-12.0) 12/18/24 23: INR 1.1 (0.9-1.1) 12/18/24 23:25 APTT 32 Seconds (21-31) H 12/18/24 23:25 PTT Ratio 1.2 12/18/24 23:25 VBG pH 7.41 (7.36-7.41) 12/18/24 23:18 VBG pCO2 33 mmHg (38-50) L 12/18/24 23:18 VBG pO2 47 mmHg 12/18/24 23:18 VBG HCO3 21 mmol/L 12/18/24 23:18 VBG O2 Saturation 80.8 % 12/18/24 23:18 VBG Base Excess -2.9 mEq/L 12/18/24 23:18 Sodium 123 mmol/L (136-145) L 12/19/24 08:38 Potassium 4.5 mmol/L (3.5-5.1) 12/19/24 08:38 Chloride 94 mmol/L (98-107) L 12/19/24 08:38 Carbon Dioxide 23 mmol/L (21-32) 12/19/24 08:38 Anion Gap 6 (3-11) 12/19/24 08:38 BUN 38 mg/dl (6-23) H 12/19/24 08:38 Creatinine 1.61 mg/dl (0.6-1.4) H D 12/19/24 08:38 Est Cr Clr Drug Dosing 52.6 ml/min 12/19/24 08:38 eGFR 45.16 12/19/24 08:38 BUN/Creatinine Ratio 23.6 (10-20) H 12/19/24 08:38 Glucose 284 mg/dl (70-99(Fasting)) H 12/19/24 08:38 POC Glucose 192 mg/dl (70-99) H 12/19/24 06:05 Osmolality 272 mOsm/kg (280-300) L 12/19/24 00:58 Lactate 1.1 mmol/L (0.4-2.0) 12/18/24 23:18 Calcium 7.9 mg/dl (8.6-10.3) L 12/19/24 08:38 Magnesium 1.8 mg/dl (1.7-2.4) 12/18/24 23:25 Total Bilirubin 1.1 mg/dl (0.2-1.0) H 12/19/24 08:38 Direct Bilirubin 0.4 mg/dl (0-0.2) H 12/18/24 23:25 AST 49 U/L (13-39) H 12/19/24 08:38 ALT 54 U/L (7-52) H 12/19/24 08:38 Alkaline Phosphatase 44 U/L (34-104) 12/19/24 08:38 Troponin I High Sens 12.9 pg/ml (0-20) 12/19/24 08:38 Troponin I High Sens 13.4 pg/ml (0-20) 12/19/24 08:38 B-Natriuretic Peptide 60 pg/ml (0-100) 12/19/24 08:38 Total Protein 6.3 gm/dl (6.0-8.3) 12/19/24 08:38 Albumin 3.4 gm/dl (3.4-5.0) 12/19/24 08:38 Globulin 2.9 gm/dl (2.5-4.0) 12/19/24 08:38 Albumin/Globulin Ratio 1.2 (0.9-2) 12/19/24 08:38 Procalcitonin 1.57 ng/ml (0-0.5) H 12/18/24 23:25 TSH 1.061 uIu/ml (0.300-4.500) 12/19/24 08:38 Cortisol AM Sample 24.38 mcg/dl (6.2-22.6) H 12/19/24 08:38 Urine Color Yellow 12/19/24 00:30 Urine Appearance Clear (Clear) 12/19/24 00:30 Urine pH 5.5 (4.5-7.5) 12/19/24 00:30 Ur Specific [place] 1.016 (1.000-1.030) 12/19/24 00:30 Urine Protein 2+ (Negative) H 12/19/24 00:30 Urine Glucose (UA) Negative (Negative) 12/19/24 00:30 Urine Ketones 1+ (Negative) H 12/19/24 00:30 Urine Blood 1+ (Negative) H 12/19/24 00:30 Urine Nitrite Negative (Negative) 12/19/24 00:30 Urine Bilirubin Negative (Negative) 12/19/24 00:30 Urine Urobilinogen Negative (Negative) 12/19/24 00:30 Ur Leukocyte Esterase Negative (Negative) 12/19/24 00:30 Urine WBC (Auto) 0-5 /hpf (0-5) 12/19/24 00:30 Urine RBC (Auto) 0-2 /hpf (0-2) 12/19/24 00:30 U Hyaline Cast (Auto) 3-5 /lpf (0-2) H 12/19/24 00:30 U Epithel Cells (Auto) 0-2 /hpf (0-2) 12/19/24 00:30 Urine Bacteria (Auto) None Seen (None Seen) 12/19/24 00:30 Urine Osmolality 490 mOsm/kg (500-800) L 12/19/24 00:35 Ur Random Sodium 34 mmol/L 12/19/24 00:35 Urine Comment 12/19/24 00:30 Stl C. cayetanensis PCR Not Detected (NotDetected) 12/19/24 01:20 Stool Rotavirus A PCR Not Detected (NotDetected) 12/19/24 01:20 Stl Adenov F 40/41 PCR Not Detected (NotDetected) 12/19/24 01:20 Stool Astrovirus (PCR) Not Detected (NotDetected) 12/19/24 01:20 Stool Campylobacter PCR Not Detected (NotDetected) 12/19/24 01:20 Stl C. diff Tox B Gene Negative Cdiff Gene (Neg) 12/19/24 01:20 Stl C. diff [id number] NEGATIVE 12/19/24 01:20 Stool Cryptosporidium PCR Not Detected (NotDetected) 12/19/24 01:20 Stl E.coli Shiga Tox PCR Not Detected (NotDetected) 12/19/24 01:20 Stl Enterotoxigenic E PCR Not Detected (NotDetected) 12/19/24 01:20 Stool EPEC (PCR) DETECTED (NotDetected) A* 12/19/24 01:20 Stool EAEC (PCR) Not Detected (NotDetected) 12/19/24 01:20 Stl E. histolytica PCR Not Detected (NotDetected) 12/19/24 01:20 Stool Giardia Lamblia PCR Not Detected (NotDetected) 12/19/24 01:20 Stool Salmonella PCR Not Detected (NotDetected) 12/19/24 01:20 Stool Sapovirus (PCR) Not Detected (NotDetected) 12/19/24 01:20 Stl P. shigelloides PCR Not Detected (NotDetected) 12/19/24 01:20 Stl Shigella/EIEC PCR Not Detected (NotDetected) 12/19/24 01:20 St Y.enterocolitica PCR Not Detected (NotDetected) 12/19/24 01:20 Stool Vibrio (PCR) Not Detected (NotDetected) 12/19/24 01:20 Stl Vibrio cholerae PCR Not Detected (NotDetected) 12/19/24 01:20 Stl Norovirus GI/GII PCR Not Detected (NotDetected) 12/19/24 01:20 Adenovirus (PCR) Not Detected (NotDetected) 12/19/24 00:03 Anaplasma Smear See Comment 12/18/24 23:25 Babesia Smear See Comment A 12/18/24 23:25 B. pertussis DNA (PCR) Not Detected (NotDetected) 12/19/24 00:03 B.parapertussis DNA PCR Not Detected (NotDetected) 12/19/24 00:03 Lyme Disease Screen Negative (Negative) 12/19/24 00:58 C. pneumoniae DNA (PCR) Not Detected (NotDetected) 12/19/24 00:03 Coronavirus OC43 (PCR) Not Detected (NotDetected) 12/19/24 00:03 Coronavirus HKU1 (PCR) Not Detected (NotDetected) 12/19/24 00:03 Coronavirus 229E (PCR) Not Detected (NotDetected) 12/19/24 00:03 SARS-CoV-2 (PCR) Not Detected (NotDetected) 12/19/24 00:03 Coronavirus NL63 (PCR) Not Detected (NotDetected) 12/19/24 00:03 Human Metapneumovir PCR Not Detected (NotDetected) 12/19/24 00:03 Influenza Type A (PCR) Not Detected (NotDetected) 12/19/24 00:03 Influenza Type B (PCR) Not Detected (NotDetected) 12/19/24 00:03 M. pneumoniae (PCR) Not Detected (NotDetected) 12/19/24 00:03 Parainfluenza 1 (PCR) Not Detected (NotDetected) 12/19/24 00:03 Parainfluenza 2 (PCR) Not Detected (NotDetected) 12/19/24 00:03 Parainfluenza 3 (PCR) Not Detected (NotDetected) 12/19/24 00:03 Parainfluenza 4 (PCR) Not Detected (NotDetected) 12/19/24 00:03 RSV (PCR) Not Detected (NotDetected) 12/19/24 00:03 Entero/Rhino (PCR) Not Detected (NotDetected) 12/19/24 00:03 Impressions Chest X-Ray 12/18/24 23:25 Exam(s): XR CXR 1 VIEW EXAM: XR Chest, 1 View CLINICAL HISTORY: Sepsis. TECHNIQUE: Frontal view of the chest. COMPARISON: 10/27/2021 FINDINGS: Left subclavian dual-chamber pacemaker is present. Heart is enlarged. Mild pulmonary vascular congestion. Hypoventilation. No definite pneumonia. No pleural effusion or pneumothorax. Bones are unchanged. IMPRESSION: Cardiomegaly. Mild pulmonary vascular congestion. Electronically signed by: Nitish Chirinos M.D. 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
[2024-12-19] MEDS: SODIUM CHLORIDE 3 % 50 ML IV ONE (11:33)
[2024-12-19] MEDS: FUROSEMIDE INJ 20 MG/2 ML VIAL IV ONE (11:33)
[2024-12-19 12:40] LABS: Anion Gap 7.0 (3-11); Blood Urea Nitrogen 38.0 mg/dl (6-23); Calcium 8.0 mg/dl (8.6-10.3); Carbon Dioxide 22.0 mmol/L (21-32); Chloride 95.0 mmol/L (98-107); Creatinine Clr Calc Pharmacy 47.5 ml/min; Glucose 300.0 mg/dl (70-99(Fasting)); Potassium 4.5 mmol/L (3.5-5.1); Sodium 124.0 mmol/L (136-145)
[2024-12-19 14:39] LABS: Anion Gap 7.0 (3-11); Blood Urea Nitrogen 39.0 mg/dl (6-23); Calcium 8.2 mg/dl (8.6-10.3); Carbon Dioxide 23.0 mmol/L (21-32); Chloride 95.0 mmol/L (98-107); Creatinine Clr Calc Pharmacy 41.3 ml/min; Glucose 290.0 mg/dl (70-99(Fasting)); Potassium 4.3 mmol/L (3.5-5.1); Sodium 125.0 mmol/L (136-145)
[2024-12-19 16:46] LABS: Anion Gap 7.0 (3-11); Blood Urea Nitrogen 40.0 mg/dl (6-23); Calcium 8.4 mg/dl (8.6-10.3); Carbon Dioxide 25.0 mmol/L (21-32); Chloride 95.0 mmol/L (98-107); Creatinine Clr Calc Pharmacy 43.2 ml/min; Glucose 223.0 mg/dl (70-99(Fasting)); Potassium 4.1 mmol/L (3.5-5.1); Sodium 127.0 mmol/L (136-145)
[2024-12-19 21:13] LABS: Anion Gap 5.0 (3-11); Blood Urea Nitrogen 41.0 mg/dl (6-23); Calcium 8.2 mg/dl (8.6-10.3); Carbon Dioxide 25.0 mmol/L (21-32); Chloride 96.0 mmol/L (98-107); Creatinine Clr Calc Pharmacy 39.4 ml/min; Glucose 220.0 mg/dl (70-99(Fasting)); Potassium 4.6 mmol/L (3.5-5.1); Sodium 126.0 mmol/L (136-145)
[2024-12-19] MEDS: AZITHROMYCIN 500 MG/255 ML BAG IV SCH (22:51)
[2024-12-20 01:02] LABS: Anion Gap 5.0 (3-11); Blood Urea Nitrogen 38.0 mg/dl (6-23); Calcium 8.1 mg/dl (8.6-10.3); Carbon Dioxide 26.0 mmol/L (21-32); Chloride 96.0 mmol/L (98-107); Creatinine Clr Calc Pharmacy 45.7 ml/min; Glucose 197.0 mg/dl (70-99(Fasting)); Potassium 4.4 mmol/L (3.5-5.1); Sodium 127.0 mmol/L (136-145)
[2024-12-20 04:10] LABS: Hematocrit (blood only) 31.8 % (42.0-52.0); Hemoglobin 11.2 g/dl (14.0-18.0); Mean Corpuscular Hemoglobin 29.7 pg (25.0-34.0); Mean Corpuscular Volume 84.4 fL (80.0-100.0); Platelet Count 60 K/uL (130-400); RDW Standard Deviation 46.2 fL (36.4-46.3); Red Blood Count 3.77 M/uL (4.70-6.10); White Blood Count 5.32 K/ul (4.8-10.8)
[2024-12-20 04:24] LABS: Anion Gap 6.0 (3-11); Blood Urea Nitrogen 35.0 mg/dl (6-23); Calcium 7.8 mg/dl (8.6-10.3); Carbon Dioxide 24.0 mmol/L (21-32); Chloride 96.0 mmol/L (98-107); Creatinine Clr Calc Pharmacy 48.1 ml/min; Glucose 195.0 mg/dl (70-99(Fasting)); Potassium 4.3 mmol/L (3.5-5.1); Sodium 126.0 mmol/L (136-145)
--- NOTE | 2024-12-20 09:32 | Infectious Disease Consult ---
Date of Consultation December 20, 2024 Assessment & Plan (1) Babesiosis: (2) Enteropathogenic Escherichia coli infection: (3) Thrombocytopenia: Plan Problems: #Babesia #Thrombocytopenia #HOMER: improving #Elevated LFTs Micro: 12/19 GI pathogen panel: + EPEC 12/19 RPP: neg 12/19 BCx x2: NGTD 12/19 Lyme screen: negative 12/19 Anaplasma PCR: pending 12/19 Babesia PCR: pending 12/19 Ehrlichia PCR: pending 12/19 Q fever Ab: pending 12/19 Rickettsia Ab: pending 12/19 Typhus fever Ab: pending Abx: Azithro 12/19 - present Atovaquone 12/19 - present Doxy 12/19 - present Cefepime 12/19 74 yo M with history of heart block s/p pacemaker, HTN, T2DM, CKD, BPH, TIFFANY, HLD, hyperthyroidism who presented on 12/18 with generalized weakness, malaise, fevers x 5 days, found to have Babesia. Denied rash, arthralgias. On presentation, pt was febrile to 38.7, RR 33, 88% on room air requiring 2 L NC. Labs showed WBC 6.25, Hb 12, plt 59, Na 121, Cr 2.05, AST 53, ALT 53, Tbili 1.3, procal 1.57. Respiratory pathogen panel negative. CXR with cardiomegaly and mild pulmonary vascular congestion. Anaplasma/Babesia smear was positive for Babesia. Was given a dose of cefepime in the ED, then was started on atovaquone and azithromycin, as well as doxycycline. Anaplasma, Ehrlichia and Babesia PCR, Q fever Ab, Rickettsia Ab, Typhus fever Ab pending. Lyme screen negative. C diff negative. GI pathogen panel positive for EPEC. On my evaluation, pt reports feeling much improved, although not quite back to baseline. He states he has not been outside much because he takes care of his . However, he did have to lay on the ground recently to change a motor. Has a dog and cat, and the dog does go outdoors. Denies rashes. Recommendations: - Ordered peripheral blood smear to check percent parasitemia for Babesia - Continue azithromycin and atovaquone - Follow-up Anaplasma, Ehrlichia, Babesia PCR - Can continue doxycycline for now Will continue to follow. Consultation Information Consultation was provided via telemedicine using two-way real-time interactive telecommunication between the patient and the telemedicine provider. For the duration of the visit, the provider was performing the assessment from a different facility than the patient. This includesuse of bluetooth stethoscope forauscultationperformed by the telepresenter that the telemedicine provider c an hear if described in the physical exam. Territory Sales Professional contact information: Please call [facility] [phone]. (Phone Number For Physician Use Only) After establishing a telemedicine visit, patient was: Patient was verified with two unique identifiers, Patient/authorized rep acknowledged consent and understanding and Gave permission to continue telehealth session Time Spent with Patient: Initial => 55 min History of Present Illness Reason for Consultation: Tickborne illness Attending Physician: Jonathon Garland MD History of Present Illness 74 yo M with history of heart block s/p pacemaker, HTN, T2DM, CKD, BPH, TIFFANY, HLD, hyperthyroidism who presented on 12/18 with generalized weakness, malaise, fevers x 5 days. Denied rash, arthralgias. On presentation, pt was febrile to 38.7, RR 33, 88% on room air requiring 2 L NC. Labs showed WBC 6.25, Hb 12, plt 59, Na 121, Cr 2.05, AST 53, ALT 53, Tbili 1.3, procal 1.57. Respiratory pathogen panel negative. CXR with cardiomegaly and mild pulmonary vascular congestion. Anaplasma/Babesia smear was positive for Babesia. Was given a dose of cefepime in the ED, then was started on atovaquone and azithromycin, as well as doxycycline. Anaplasma, Ehrlichia and Babesia PCR, Q fever Ab, Rickettsia Ab, Typhus fever Ab pending. Lyme screen negative. C diff negative. GI pathogen panel positive for EPEC. On my evaluation, pt reports feeling much improved, although not quite back to baseline. He states he has not been outside much because he takes care of his . However, he did have to lay on the ground recently to change a motor. Has a dog and cat, and the dog does go outdoors. Denies rashes. Allergies Allergy/AdvReac Type Severity Reaction Status Date / Time atorvastatin Allergy Severe Rash Verified 12/19/24 00:15 Corticosteroids Allergy Severe SWELLING, Verified 12/16/24 08:46 (Glucocorticoids) HIVES AFTER KIDNEY ISSUES Penicillins Allergy Mild RASH Verified 12/16/24 08:46 Home Medications Medication Instructions Recorded Confirmed Type garlic 1,000 mg capsule 1,000 mg PO QAM 03/06/18 12/19/24 History cranberry concentrate-ascorbic 1 cap PO QAM 05/10/19 12/19/24 History acid 4,200 mg-20 mg capsule aspirin 81 mg tablet,delayed 81 mg PO QAM 05/04/20 12/19/24 History release lancets 30 gauge (OneTouch Delica #25 ea 10/25/20 12/16/24 History Lancets) aloe vera 25 mg capsule 75 mg PO QAM 09/19/22 12/19/24 History insulin syringe-needle U-100 1 mL #400 ea 06/26/23 12/16/24 Rx 30 gauge x 1/2" (BD Insulin Syringe Ultra-Fine) vitamin B complex 1 cap PO QAM 01/15/24 12/19/24 History OneTouch Ultra Test (blood sugar #400 ea 02/13/24 12/16/24 Rx diagnostic) modafinil 200 mg tablet (Provigil) 200 mg PO QAM #90 tabs 06/07/24 12/19/24 Rx insulin aspart U-100 100 unit/mL 10 unit subcut TID 06/17/24 12/19/24 History subcutaneous solution (Novolog U-100 Insulin aspart) lisinopril 20 mg tablet 20 mg PO HS #90 tabs 06/18/24 12/19/24 Rx insulin glargine 100 unit/mL 55 unit (0.55 mL) subcut QPM #50 mL 08/04/24 12/19/24 Rx subcutaneous solution (Lantus U-100 Insulin) methimazole 10 mg tablet 10 mg PO UD #90 tabs 09/10/24 12/19/24 Rx furosemide 20 mg tablet 40 mg (2 x 20 mg) PO QAM #90 tabs 10/12/24 12/19/24 Rx Patient History Medical History History of right bundle branch block (RBBB) Symptomatic bradycardia reason for pacemaker TIFFANY (obstructive sleep apnea) non-compliant with device Narcolepsy Hyperthyroidism Hyperlipidemia HTN (hypertension) Hx of shortness of breath no current issues per pt. Chronic venous insufficiency BPH (benign prostatic hyperplasia) Venous stasis ulcer of right lower extremity resolved Venous stasis ulcer of left lower extremity resolved Tick bite of right side of chest wall resolved Sinus node dysfunction HOMER (acute kidney injury) Hx of pancreatitis "years ago" Pacemaker PLACED FOR BRADYCARDIA>IMPLANTED 09/2021/FOLLOWED BY DR. BECKHAM Chronic back pain Pleomorphic adenoma of parotid gland Osteoarthritis Poor historian incorrect History of renal failure unsure stage. f/u dr. [place] [facility] Cardiac murmur as a child Surgical History History of surgery HISTORY OF RADIO FREQ DENERVATION IN PAST. History of colonoscopy Family History Father Diabetes Blood disorder Grandmother (Maternal) Diabetes Brother Cancer of spleen Other No family history of adverse response to anesthesia Denies family history of Ovarian cancer Prostate cancer Myocardial infarction Breast cancer Colorectal cancer Social History Smoking Status: Never smoker Tobacco Type: Cigarettes Age Started Using Tobacco: 18; Age Quit Using Tobacco: 58; packs per day: 3; Cigarettes Per Day: 30; Second Hand Exposure: Yes (hx); Do You Dip or Chew Tobacco: No; Hx Alcohol Use: No Hx Substance Use: No Preferred Language: Italian Communication Ability: Effective Visual Impairment: No Limitations Hearing Ability: Normal Dining Service Inspector Required: No Beliefs That Will Affect Care: None marital status: Current Living Situation: Spouse current occupational status: retired How many Children do You have: 2 Feels Safe at Home: Yes Childhood Exposure to Second-Hand Smoke: Yes Diet: regular caffeine: Yes during the past year weight has: remained stable Dental Care, Regularly: No Physical Activity Frequency: 3-4 Times per Week Seatbelt Use: always Sunscreen Use: Yes Assistive Devices: None Review of System A complete ROS was performed and is negative except as mentioned in the HPI. Physical Exam Physical Exam: GEN: Well-appearing, in NAD. RESP: No increased work of breathing ABD: Soft, non-distended. Non-tender to palpation. SKIN: No lesions or rashes on exposed skin. NEURO: Alert and oriented. Answers all questions appropriately. Speech not slurred. PSYCH: Normal mood, affect appropriate. Results & Data Vital Signs (Past 12 Hours) Vital Signs Temp Pulse Pulse Resp BP BP Pulse Ox 12/20/24 08:08 36.6 C 61 18 113/69 95 12/20/24 04:25 37.0 C 65 23 99/60 L 94 12/20/24 00:04 36.9 C 70 23 111/66 94 12/19/24 23:51 12/19/24 22:30 69 O2 Del Method O2 Flow Rate 12/20/24 08:08 Room Air 12/20/24 04:25 Nasal Cannula 2 12/20/24 00:04 Nasal Cannula 2 12/19/24 23:51 Nasal Cannula 2 12/19/24 22:30 Laboratory Results Short CBC 12/20/24 Range/Units 03:55 WBC 5.32 (4.8-10.8) K/ul Hgb 11.2 L (14.0-18.0) g/dl Hct 31.8 L (42.0-52.0) % Plt Count 60 L (130-400) K/uL BMP 12/19/24 12/20/24 12/20/24 20:15 00:22 03:55 Sodium 126 L 127 L 126 L Potassium 4.6 4.4 4.3 Chloride 96 L 96 L 96 L Carbon Dioxide 25 26 24 BUN 41 H 38 H 35 H Creatinine 2.15 H 1.85 H D 1.76 H Glucose 220 H 197 H 195 H Calcium 8.2 L 8.1 L 7.8 L 12/20/24 12/20/24 12/20/24 08:23 12:40 15:48 Sodium 124 L 128 L 127 L Potassium 4.4 4.7 4.5 Chloride 95 L 96 L 97 L Carbon Dioxide 23 25 23 BUN 34 H 33 H 36 H Creatinine 1.59 H 1.83 H 1.84 H Glucose 310 H* 284 H 233 H Calcium 8.0 L 8.6 8.6 Diagnostic Findings Chest X-Ray 12/18/24 23:25 Exam(s): XR CXR 1 VIEW EXAM: XR Chest, 1 View CLINICAL HISTORY: Sepsis. TECHNIQUE: Frontal view of the chest. COMPARISON: 10/27/2021 FINDINGS: Left subclavian dual-chamber pacemaker is present. Heart is enlarged. Mild pulmonary vascular congestion. Hypoventilation. No definite pneumonia. No pleural effusion or pneumothorax. Bones are unchanged. IMPRESSION: Cardiomegaly. Mild pulmonary vascular congestion. Electronically signed by: Nitish Chirinos M.D. 12/19/24 00:58 AM Medications Administered Current Inpatient Medications Acetaminophen (Acetaminophen 500 Mg Tab) 1,000 mg PO Q8H PRN PRN Reason: Pain or Fever Stop: 01/18/25 04:20 Last Admin: 12/20/24 04:43 Dose: 1,000 mg Aspirin (Aspirin 81 Mg Ectab) 81 mg PO QAM [facility] Stop: 01/18/25 08:59 Last Admin: 12/20/24 10:09 Dose: 81 mg Atovaquone (Atovaquone 750 Mg/5 Ml Udc) 750 mg PO Q12H [facility] Stop: 01/18/25 08:59 Last Admin: 12/20/24 08:48 Dose: 750 mg Dextrose (Dextrose 50% 50 Ml Syringe) 25 - 50 ml IV UD PRN; Protocol PRN Reason: Hypoglycemia Protocol Stop: 01/18/25 04:20 Doxycycline Hyclate (Doxycycline Hyclate 100 Mg Cap) 100 mg PO BID [facility] Stop: 12/21/24 08:59 Last Admin: 12/20/24 08:49 Dose: 100 mg Furosemide (Furosemide 40 Mg Tab) 40 mg PO QAM [facility] Stop: 01/19/25 10:44 Last Admin: 12/20/24 11:50 Dose: 40 mg Glucagon (Glucagon For Inj 1 Mg Vial) 1 mg SQ UD PRN; Protocol PRN Reason: Hypoglycemia Protocol Stop: 01/18/25 04:20 Glucose (Glucose 40% Gel 15 Gm Tube) 15 - 30 gm PO UD PRN; Protocol PRN Reason: Hypoglycemia Protocol Stop: 01/18/25 04:20 Glucose (Glucose 10 Tab/Tube) 4 - 8 tab PO UD PRN; Protocol PRN Reason: Hypoglycemia Protocol Stop: 01/18/25 04:20 Azithromycin (Zithromax) 500 mg in 255 mls @ 127.5 mls/hr IV Q24H [facility] Stop: 12/26/24 22:59 Last Infusion: 12/20/24 01:17 Dose: Infused Insulin Aspart (Insulin Aspart Per Unit Charge) 0 units SC ACHS [facility] Stop: 01/18/25 04:44 Last Admin: 12/20/24 12:45 Dose: 7 units Insulin Glargine (Lantus Per Unit Charge) 55 units SQ QD@08 [facility] Stop: 01/20/25 07:59 Insulin Glargine (Lantus Per Unit Charge) 5 units SQ ONE ONE Stop: 12/20/24 21:01 Lisinopril (Lisinopril 20 Mg Tab) 20 mg PO HS [facility] Stop: 01/18/25 20:59 Melatonin (Melatonin 3 Mg Tab) 3 mg PO HS PRN PRN Reason: Sleep Stop: 01/18/25 04:20 Methimazole (Methimazole 5 Mg Tablet) 10 mg PO UD [facility] Stop: 01/18/25 04:20 Miscellaneous (Carbohydrates For Hypoglycemia ) 15 - 30 gm PO UD PRN PRN Reason: Hypoglycemia Protocol Stop: 01/18/25 04:20 Modafinil (Modafinil 100 Mg Tab) 200 mg PO QAM [facility] Stop: 01/18/25 08:59 Last Admin: 12/20/24 08:56 Dose: 200 mg Ondansetron HCl (Ondansetron Inj 2 Mg/Ml 2 Ml Vial) 4 mg IV Q6H PRN PRN Reason: Nausea Stop: 01/18/25 04:20 Polyethylene Glycol (Polyethylene (Miralax) 17 Gm Pack) 17 gm PO DAILY PRN PRN Reason: Constipation Stop: 01/18/25 04:20 Sodium Chloride (Sodium Chloride 1 Gm Tablet) 2 gm PO BID [facility] Stop: 01/19/25 10:44 Last Admin: 12/20/24 11:49 Dose: 2 gm
[2024-12-20 09:42] LABS: Anion Gap 6.0 (3-11); Blood Urea Nitrogen 34.0 mg/dl (6-23); Calcium 8.0 mg/dl (8.6-10.3); Carbon Dioxide 23.0 mmol/L (21-32); Chloride 95.0 mmol/L (98-107); Creatinine Clr Calc Pharmacy 53.2 ml/min; Glucose 310.0 mg/dl (70-99(Fasting)); Potassium 4.4 mmol/L (3.5-5.1); Sodium 124.0 mmol/L (136-145)
--- NOTE | 2024-12-20 09:43 | Hospitalist Progress Note ---
Date of Service December 20, 2024 Assessment & Plan (1) Babesiosis: (2) Acute hyponatremia: (3) Hypoxia: (4) Generalized weakness: (5) Mass of right parotid gland: (6) Status post placement of cardiac pacemaker: (7) Symptomatic bradycardia: (8) HTN (hypertension): (9) Type 2 DM with CKD stage 3 and hypertension: (10) Hyperthyroidism: (11) TIFFANY (obstructive sleep apnea): (12) Hyperlipidemia: Plan 74 y/o male with PMHx that includes h/o heart block s/p pacemaker placement, HTN , T2DM, CKD stage 3, right parotid swelling/mass, BPH, TIFFANY, HLD, hyperthyroidism Noncompliance presents with generalized weakness, malaise, fevers: Babesiosis Demonstrated on peripheral smear Monitor transaminitis and thrombocytopenia Blood cultures NTD Atovaquone azithromycin. Empirical doxycycline pending Remaining tick panel ID consultation Bradycardia Resolved Telemetry K greater than 4 mag greater than 2 PPM interrogation Unrevealing Acute CHF exacerbation? Implicated with bradycardia? CHF protocol orders EKG with LBBB Echo Unchanged from prior with normal EF Continue diuresis Per nephrology Acute hypoxic respiratory failure secondary above Wean O2 HOMER multifactorial in setting of infection, cardiorenal improving Avoid nephrotoxic meds Hold Lisinopril Monitor Severe Acute on chronic hyponatremia secondary to poor p.o. intake, SIADH. Slowly improving BMP every 6 hours Avoid overcorrection Cortisol elevated. TFTs wnl. Urine osmolality And sodium elevated Encourage p.o. intake Status post 3% Normal saline Nephrology Managing Stool positive EPEC Supportive care Diabetes type 2 Uncontrolled A1c 9 Basal bolus insulin Diabetes education and dietitian Hyperthyroidism methimazole Hypertension Home meds Held for soft BP Narcolepsy Modafinil Generalized weakness PT OT DVT prophylaxis SCDs and ambulation DNR/DNI Disposition Continue PCU monitoring Admission and Anticipated Discharge Date Admission Date: December 19, 2024 Subjective Doing much better. Tells me her breathing is improved. No longer visibly tachypneic. Still seems to have some exertional dyspnea Tells me he is doing just fine denies any symptoms Discussed Lantus dosing with RN will give 15 units today at noon and then continue his regular insulin regimen starting tomorrow 55 units at noon. RN monitoring for dysglycemia Labs for today pending Review of Systems Review of Systems: as per HPI Physical Exam Physical Exam: Constitutional: in mild distress, visibly short of breath HEENT: NCAT, no conjunctival injection CV: RRR, extremities well-perfused, 2-3+ bilateral pitting edema chronic skin changes Resp: Lungs CTAB, +tachypnea, increased work of breathing GI: nondistended, bowel sounds normal, non-tender to palpation MSK: no gross deformities Skin: warm, dry, no rash appreciated Neuro: alert, oriented, no focal neurologic deficit appreciated Results & Data Results & Data Vital Signs (Past 12 Hours) Vital Signs Temp Pulse Pulse Resp BP BP Pulse Ox 12/20/24 08:08 36.6 C 61 18 113/69 95 12/20/24 04:25 37.0 C 65 23 99/60 L 94 12/20/24 00:04 36.9 C 70 23 111/66 94 12/19/24 23:51 12/19/24 22:30 69 O2 Del Method O2 Flow Rate 12/20/24 08:08 Room Air 12/20/24 04:25 Nasal Cannula 2 12/20/24 00:04 Nasal Cannula 2 12/19/24 23:51 Nasal Cannula 2 12/19/24 22:30 Laboratory Results Abnormal Labs 12/18/24 12/18/24 12/19/24 23:18 23:25 00:30 RBC 4.01 L Hgb 12.1 L Hct 33.9 L RDW Coeff of [place] 14.8 H Plt Count 59 L MPV [place] # (Auto) 0.99 H APTT 32 H VBG pCO2 33 L Sodium 121 L Chloride 92 L BUN 41 H Creatinine 2.05 H BUN/Creatinine Ratio Glucose 205 H POC Glucose Osmolality Calcium 8.1 L Total Bilirubin 1.3 H Direct Bilirubin 0.4 H AST 53 H ALT 53 H Procalcitonin 1.57 H Cortisol AM Sample Urine Protein 2+ H Urine Ketones 1+ H Urine Blood 1+ H U Hyaline Cast (Auto) 3-5 H Urine Osmolality Stool EPEC (PCR) Babesia Smear See Comment A 12/19/24 12/19/24 12/19/24 00:35 00:58 01:20 RBC Hgb Hct RDW Coeff of [place] Plt Count MPV [place] # (Auto) APTT VBG pCO2 Sodium Chloride BUN Creatinine BUN/Creatinine Ratio Glucose POC Glucose Osmolality 272 L Calcium Total Bilirubin Direct Bilirubin AST ALT Procalcitonin Cortisol AM Sample Urine Protein Urine Ketones Urine Blood U Hyaline Cast (Auto) Urine Osmolality 490 L Stool EPEC (PCR) DETECTED A* Babesia Smear 12/19/24 12/19/24 12/19/24 06:05 08:38 11:27 RBC 3.76 L Hgb 11.4 L Hct 31.7 L RDW Coeff of [place] Plt Count 54 L MPV 12.6 H [place] # (Auto) APTT VBG pCO2 Sodium 123 L Chloride 94 L BUN 38 H Creatinine 1.61 H D BUN/Creatinine Ratio 23.6 H Glucose 284 H POC Glucose 192 H 292 H Osmolality Calcium 7.9 L Total Bilirubin 1.1 H Direct Bilirubin AST 49 H ALT 54 H Procalcitonin Cortisol AM Sample 24.38 H Urine Protein Urine Ketones Urine Blood U Hyaline Cast (Auto) Urine Osmolality Stool EPEC (PCR) Babesia Smear 12/19/24 12/19/24 12/19/24 12:09 14:10 16:08 RBC Hgb Hct RDW Coeff of [place] Plt Count MPV [place] # (Auto) APTT VBG pCO2 Sodium 124 L 125 L Chloride 95 L 95 L BUN 38 H 39 H Creatinine 1.78 H 2.05 H BUN/Creatinine Ratio 21.3 H Glucose 300 H 290 H POC Glucose 221 H Osmolality Calcium 8.0 L 8.2 L Total Bilirubin Direct Bilirubin AST ALT Procalcitonin Cortisol AM Sample Urine Protein Urine Ketones Urine Blood U Hyaline Cast (Auto) Urine Osmolality Stool EPEC (PCR) Babesia Smear 12/19/24 12/19/24 12/19/24 16:09 20:15 20:24 RBC Hgb Hct RDW Coeff of [place] Plt Count MPV [place] # (Auto) APTT VBG pCO2 Sodium 127 L 126 L Chloride 95 L 96 L BUN 40 H 41 H Creatinine 1.96 H 2.15 H BUN/Creatinine Ratio 20.4 H Glucose 223 H 220 H POC Glucose 207 H Osmolality Calcium 8.4 L 8.2 L Total Bilirubin Direct Bilirubin AST ALT Procalcitonin Cortisol AM Sample Urine Protein Urine Ketones Urine Blood U Hyaline Cast (Auto) Urine Osmolality Stool EPEC (PCR) Babesia Smear 12/20/24 12/20/24 12/20/24 00:22 03:55 07:17 RBC 3.77 L Hgb 11.2 L Hct 31.8 L RDW Coeff of [place] 15.0 H Plt Count 60 L MPV [place] # (Auto) APTT VBG pCO2 Sodium 127 L 126 L Chloride 96 L 96 L BUN 38 H 35 H Creatinine 1.85 H D 1.76 H BUN/Creatinine Ratio 20.5 H Glucose 197 H 195 H POC Glucose 190 H Osmolality Calcium 8.1 L 7.8 L Total Bilirubin Direct Bilirubin AST ALT Procalcitonin Cortisol AM Sample Urine Protein Urine Ketones Urine Blood U Hyaline Cast (Auto) Urine Osmolality Stool EPEC (PCR) Babesia Smear 12/20/24 Unknown RBC Hgb Hct RDW Coeff of [place] Plt Count MPV [place] # (Auto) APTT VBG pCO2 Sodium Chloride BUN Creatinine BUN/Creatinine Ratio Glucose POC Glucose Osmolality Calcium Total Bilirubin Direct Bilirubin AST ALT Procalcitonin Cortisol AM Sample Urine Protein Urine Ketones Urine Blood U Hyaline Cast (Auto) Urine Osmolality 496 L Stool EPEC (PCR) Babesia Smear Diagnostic Findings Chest X-Ray 12/18/24 23:25 Exam(s): XR CXR 1 VIEW EXAM: XR Chest, 1 View CLINICAL HISTORY: Sepsis. TECHNIQUE: Frontal view of the chest. COMPARISON: 10/27/2021 FINDINGS: Left subclavian dual-chamber pacemaker is present. Heart is enlarged. Mild pulmonary vascular congestion. Hypoventilation. No definite pneumonia. No pleural effusion or pneumothorax. Bones are unchanged. IMPRESSION: Cardiomegaly. Mild pulmonary vascular congestion. Electronically signed by: Nitish Chirinos M.D. 12/19/24 00:58 AM PG Care Time/CCT Total # of Minutes Spent Total Time Spent with Patient: Total time spent is greater than 50% in coordination of care (as documented) at patient's floor/unit and/or counseling patient: Coding Level of Care Code 17250 SUB INP/OBS CARE 2/35MIN Diagnoses Babesiosis B60.00 Acute hyponatremia E87.1 Hypoxia R09.02 Generalized weakness R53.1 Mass of right parotid gland K11.8 Status post placement of cardiac pacemaker Z95.0 Symptomatic bradycardia R00.1 Primary hypertension I10 Hypertension type: primary hypertension Type 2 DM with CKD stage 3 and hypertension E11.22; I12.9; N18.3 Hyperthyroidism E05.90 TIFFANY (obstructive sleep apnea) G47.33 Hyperlipidemia E78.5 (8) HTN (hypertension) Hypertension type: primary hypertension Qualified Code(s): I10 - Essential (primary) hypertension
[2024-12-20] MEDS: SODIUM CHLORIDE 1 GM TABLET PO SCH (11:49)
[2024-12-20] MEDS: FUROSEMIDE 40 MG TAB PO SCH (11:50)
--- NOTE | 2024-12-20 12:13 | Nephrology Progress Note ---
Date of Service December 20, 2024 Assessment & Plan (1) Hyponatremia: Plan: * H/O SIADH managed as an outpatient with fluid restriction and low-dose furosemide. Denny 34, Uosm 490 this admission. * Patient is currently asymptomatic. He had brisk diuresis in response to IV furosemide yesterday * Serum Na essentially unchanged this am. Patient reports that he can tolerate oral medication * Start NaCl 2g po BID, furosemide 40 mg qAM * Monitor serum Na, UO, Uosm (2) HOMER (acute kidney injury): Plan: * HOMER - resolved * BP remains relatively low. Continue to hold lisinopril (3) Chronic kidney disease with active medical management without dialysis, stage 3 (moderate): Plan: * CKD stage G3 (moderate impairment). Baseline creatinine has been 1.42.0. Renal impairment has been attributed to diabetic nephropathy and hypertensive nephrosclerosis. (4) Fluid overload: Plan: * Clinically improved * Monitor I&O * 12/19/24 echo: LVEF 55-60%, no RMA, moderate LVH. No significant valvular abnormality. No change compared to 10/26/2021 (5) Babesiosis: Plan: * On atovaquone, azithromycin (6) Enteropathogenic Escherichia coli infection: Plan: * Supportive care Admission and Anticipated Discharge Date Admission Date: December 19, 2024 Subjective Mr. Dunlap was evaluated in his hospital room this morning. He denied fever, myalgias, focal neurologic weakness or diarrhea. He appeared quite anxious to leave the hospital. He reports that he needs to return home to care for his and administer her medications. Review of Systems Constitutional: no fever, no body aches and no weakness Eyes: no problem reported Ear, Nose, Mouth, Throat: no problem reported Respiratory: no cough and no dyspnea Cardiovascular: + dyspnea on exertion; no chest pain Gastrointestinal: no abdominal pain, no nausea, no vomiting and no diarrhea/loose stools Genitourinary: no problem reported Integumentary: no rash Neurologic: no localized weakness Physical Exam Constitutional: not in distress Eyes: PERRL, conjunctivae normal, anicteric sclerae ENMT: external ear and nose normal, oropharynx normal Neck: trachea midline, no thyromegaly Respiratory: normal respiratory effort, lungs clear to auscultation Cardiovascular: Rate/Rhythm: regular rate and regular rhythm Extremities: + edema (1+ dependent edema of arms and legs) Gastrointestinal (Abdomen): normal bowel sounds, soft, nontender, no hep atosplenomegaly Musculoskeletal: Extremities: no cyanosis and no clubbing Neurologic: no focal motor deficits Results & Data Vital Signs (Past 12 Hours) Vital Signs Temp Pulse Resp BP BP Pulse Ox O2 Del Method 12/20/24 11:25 36.8 C 62 20 101/64 93 Room Air 12/20/24 10:23 Room Air 12/20/24 08:08 36.6 C 61 18 113/69 95 Room Air 12/20/24 04:25 37.0 C 65 23 99/60 L 94 Nasal Cannula O2 Flow Rate 12/20/24 11:25 12/20/24 10:23 12/20/24 08:08 12/20/24 04:25 2 Laboratory Results Laboratory Results - last 24 hr 12/18/24 12/19/24 12/19/24 23:25 12:09 14:10 WBC RBC Hgb Hct MCV MCH MCHC RDW Std Deviation RDW Coeff of [place] Plt Count MPV Peripher Smr Path Cons Sodium 124 L 125 L Potassium 4.5 4.3 Chloride 95 L 95 L Carbon Dioxide 22 23 Anion Gap 7 7 BUN 38 H 39 H Creatinine 1.78 H 2.05 H Est Cr Clr Drug Dosing 47.5 41.3 eGFR 40.03 33.79 BUN/Creatinine Ratio 21.3 H 19.0 Glucose 300 H 290 H POC Glucose Calcium 8.0 L 8.2 L Troponin I High Sens Urine Osmolality 12/19/24 12/19/24 12/19/24 16:08 16:09 20:15 WBC RBC Hgb Hct MCV MCH MCHC RDW Std Deviation RDW Coeff of [place] Plt Count MPV Peripher Smr Path Cons Sodium 127 L 126 L Potassium 4.1 4.6 Chloride 95 L 96 L Carbon Dioxide 25 25 Anion Gap 7 5 BUN 40 H 41 H Creatinine 1.96 H 2.15 H Est Cr Clr Drug Dosing 43.2 39.4 eGFR 35.66 31.91 BUN/Creatinine Ratio 20.4 H 19.1 Glucose 223 H 220 H POC Glucose 221 H Calcium 8.4 L 8.2 L Troponin I High Sens 9.9 Urine Osmolality 12/19/24 12/20/24 12/20/24 20:24 00:22 03:55 WBC 5.32 RBC 3.77 L Hgb 11.2 L Hct 31.8 L MCV 84.4 MCH 29.7 MCHC 35.2 RDW Std Deviation 46.2 RDW Coeff of [place] 15.0 H Plt Count 60 L MPV 12.0 Peripher Smr Path Cons Sodium 127 L 126 L Potassium 4.4 4.3 Chloride 96 L 96 L Carbon Dioxide 26 24 Anion Gap 5 6 BUN 38 H 35 H Creatinine 1.85 H D 1.76 H Est Cr Clr Drug Dosing 45.7 48.1 eGFR 38.22 40.58 BUN/Creatinine Ratio 20.5 H 19.9 Glucose 197 H 195 H POC Glucose 207 H Calcium 8.1 L 7.8 L Troponin I High Sens 10.8 Urine Osmolality 12/20/24 12/20/24 12/20/24 07:17 08:23 11:23 WBC RBC Hgb Hct MCV MCH MCHC RDW Std Deviation RDW Coeff of [place] Plt Count MPV [place] Smr Path Cons Sodium 124 L Potassium 4.4 Chloride 95 L Carbon Dioxide 23 Anion Gap 6 BUN 34 H Creatinine 1.59 H Est Cr Clr Drug Dosing 53.2 eGFR 45.84 BUN/Creatinine Ratio 21.4 H Glucose 310 H* POC Glucose 190 H 230 H Calcium 8.0 L Troponin I High Sens 8.1 Urine Osmolality 12/20/24 Unknown WBC RBC Hgb Hct MCV MCH MCHC RDW Std Deviation RDW Coeff of [place] Plt Count MPV Peripher Smr Path Cons Sodium Potassium Chloride Carbon Dioxide Anion Gap BUN Creatinine Est Cr Clr Drug Dosing eGFR BUN/Creatinine Ratio Glucose POC Glucose Calcium Troponin I High Sens Urine Osmolality 496 L PG Care Time/CCT Total # of Minutes Spent Total Time Spent with Patient: Total time spent is greater than 50% in coordination of care (as documented) at patient's floor/unit and/or counseling patient: Coding Level of Care Code 61735 SUB INP/OBS CARE 3/50MIN Diagnoses Hyponatremia E87.1 HOMER (acute kidney injury) N17.9 Chronic kidney disease with active medical management without dialysis, stage 3 (moderate) N18.30 Fluid overload E87.70 Babesiosis B60.00 Enteropathogenic Escherichia coli infection A04.0
[2024-12-20] MEDS: LANTUS PER UNIT CHARGE SQ ONE ×2 (12:50→20:47)
[2024-12-20 13:52] LABS: Anion Gap 7.0 (3-11); Blood Urea Nitrogen 33.0 mg/dl (6-23); Calcium 8.6 mg/dl (8.6-10.3); Carbon Dioxide 25.0 mmol/L (21-32); Chloride 96.0 mmol/L (98-107); Creatinine Clr Calc Pharmacy 46.2 ml/min; Glucose 284.0 mg/dl (70-99(Fasting)); Potassium 4.7 mmol/L (3.5-5.1); Sodium 128.0 mmol/L (136-145)
[2024-12-20 16:46] LABS: Anion Gap 7.0 (3-11); Calcium 8.6 mg/dl (8.6-10.3); Carbon Dioxide 23.0 mmol/L (21-32); Chloride 97.0 mmol/L (98-107); Potassium 4.5 mmol/L (3.5-5.1); Sodium 127.0 mmol/L (136-145)
[2024-12-20 16:51] LABS: Blood Urea Nitrogen 36.0 mg/dl (6-23); Creatinine Clr Calc Pharmacy 46.0 ml/min; Glucose 233.0 mg/dl (70-99(Fasting))
[2024-12-20] MEDS: ONDANSETRON INJ 2 MG/ML 2 ML VIAL IV PRN (21:08)
[2024-12-20 21:28] LABS: Anion Gap 7.0 (3-11); Blood Urea Nitrogen 38.0 mg/dl (6-23); Calcium 8.4 mg/dl (8.6-10.3); Carbon Dioxide 23.0 mmol/L (21-32); Chloride 96.0 mmol/L (98-107); Creatinine Clr Calc Pharmacy 46.8 ml/min; Glucose 201.0 mg/dl (70-99(Fasting)); Potassium 4.3 mmol/L (3.5-5.1); Sodium 126.0 mmol/L (136-145)
--- NOTE | 2024-12-21 05:33 | Electrocardiogram Report ---
Test Reason : Blood Pressure : */* mmHG Vent. Rate : 76 BPM Atrial Rate : 76 BPM P-R Int : 216 ms QRS Dur : 150 ms QT Int : 410 ms P-R-T Axes : 55 -58 96 degrees QTcB Int : 461 ms Atrial-sensed ventricular-paced rhythm with prolonged AV conduction Abnormal ECG When compared with ECG of 27-Oct-2021 04:29, Vent. rate has increased by 11 bpm Confirmed by Bonilla Kauffman ([id number]) on 12/21/2024 5:32:46 AM Referred By: REFERRED SELF Confirmed By: Bonilla Kauffman
[2024-12-21 07:20] LABS: Hematocrit (blood only) 34.5 % (42.0-52.0); Hemoglobin 12.1 g/dl (14.0-18.0); Mean Corpuscular Hemoglobin 29.7 pg (25.0-34.0); Mean Corpuscular Volume 84.8 fL (80.0-100.0); Platelet Count 89 K/uL (130-400); RDW Standard Deviation 46.8 fL (36.4-46.3); Red Blood Count 4.07 M/uL (4.70-6.10); White Blood Count 4.78 K/ul (4.8-10.8)
[2024-12-21] MEDS: LANTUS PER UNIT CHARGE SQ SCH ×2 (08:24→11:52)
[2024-12-21] MEDS ORDERED: Nursing to Pharmacy Communication SCH (08:30)
[2024-12-21 08:37] LABS: Alanine Aminotransferase 70.0 U/L (7-52); Albumin Globulin Ratio 1.0 (0.9-2); Alkaline Phosphatase 47.0 U/L (34-104); Anion Gap 7.0 (3-11); Bilirubin,Total 1.0 mg/dl (0.2-1.0); Blood Urea Nitrogen 35.0 mg/dl (6-23); Calcium 8.4 mg/dl (8.6-10.3); Carbon Dioxide 24.0 mmol/L (21-32); Chloride 98.0 mmol/L (98-107); Creatinine Clr Calc Pharmacy 49.9 ml/min; Globulin 3.6 gm/dl (2.5-4.0); Glucose 195.0 mg/dl (70-99(Fasting)); Potassium 4.4 mmol/L (3.5-5.1); Sodium 129.0 mmol/L (136-145); Total Protein 7.1 gm/dl (6.0-8.3)
--- NOTE | 2024-12-21 09:20 | Nephrology Progress Note ---
Date of Service December 21, 2024 Assessment & Plan (1) Hyponatremia: Plan: * H/O SIADH managed as an outpatient with fluid restriction and low-dose furosemide. Denny 34, Uosm 490 this admission. * Patient is currently asymptomatic. He had brisk diuresis in response to IV furosemide yesterday * Serum Na essentially unchanged this am. Patient reports that he can tolerate oral medication * Continue NaCl 2g po BID, furosemide 40 mg qAM * Monitor serum Na, UO, Uosm (2) HOMER (acute kidney injury): Plan: * HOMER - resolved * BP remains relatively low. Continue to hold lisinopril (3) Chronic kidney disease with active medical management without dialysis, stage 3 (moderate): Plan: * CKD stage G3 (moderate impairment). Baseline creatinine has been 1.42.0. Renal impairment has been attributed to diabetic nephropathy and hypertensive nephrosclerosis. (4) Fluid overload: Plan: * Clinically improved * Monitor I&O * 12/19/24 echo: LVEF 55-60%, no RMA, moderate LVH. No significant valvular abnormality. No change compared to 10/26/2021 (5) Babesiosis: Plan: * On atovaquone, azithromycin (6) Enteropathogenic Escherichia coli infection: Plan: * Supportive care Admission and Anticipated Discharge Date Admission Date: December 19, 2024 Subjective Mr. Dunlap was evaluated in his hospital room this morning. He denied fever, myalgias, focal neurologic weakness or diarrhea. He reports brisk UO in response to oral furosemide and states that he is tolerating NaCl tablets without GI upset Review of Systems Constitutional: no fever, no body aches and no weakness Eyes: no problem reported Ear, Nose, Mouth, Throat: no problem reported Respiratory: no cough and no dyspnea Cardiovascular: + dyspnea on exertion; no chest pain Gastrointestinal: no abdominal pain, no nausea, no vomiting and no diarrhea/loose stools Genitourinary: no problem reported Integumentary: no rash Neurologic: no localized weakness Physical Exam Constitutional: not in distress Eyes: PERRL, conjunctivae normal, anicteric sclerae ENMT: external ear and nose normal, oropharynx normal Neck: trachea midline, no thyromegaly Respiratory: normal respiratory effort, lungs clear to auscultation Cardiovascular: Rate/Rhythm: regular rate and regular rhythm Extremities: no edema Gastrointestinal (Abdomen): normal bowel sounds, soft, nontender, no hepatosplenomegaly Musculoskeletal: Extremities: no cyanosis and no clubbing Neurologic: no focal motor deficits Results & Data Vital Signs (Past 12 Hours) Vital Signs Temp Pulse Pulse Resp BP BP Pulse Ox 12/21/24 09:11 12/21/24 07:42 64 12/21/24 07:23 36.5 C 62 19 99/60 L 92 12/21/24 03:00 36.7 C 61 18 106/71 91 12/20/24 23:24 69 12/20/24 23:00 36.8 C 65 22 112/66 92 12/20/24 22:28 O2 Del Method 12/21/24 09:11 Room Air 12/21/24 07:42 12/21/24 07:23 Room Air 12/21/24 03:00 Room Air 12/20/24 23:24 12/20/24 23:00 Room Air 12/20/24 22:28 Room Air Laboratory Results Laboratory Results - last 24 hr 12/20/24 12/20/24 12/20/24 08:23 11:23 12:40 WBC RBC Hgb Hct MCV MCH MCHC RDW Std Deviation RDW Coeff of [place] Plt Count MPV Sodium 124 L 128 L Potassium 4.4 4.7 Chloride 95 L 96 L Carbon Dioxide 23 25 Anion Gap 6 7 BUN 34 H 33 H Creatinine 1.59 H 1.83 H Est Cr Clr Drug Dosing 53.2 46.2 eGFR 45.84 38.72 BUN/Creatinine Ratio 21.4 H 18.0 Glucose 310 H* 284 H POC Glucose 230 H Calcium 8.0 L 8.6 Total Bilirubin AST ALT Alkaline Phosphatase Troponin I High Sens 8.1 Total Protein Albumin Globulin Albumin/Globulin Ratio Urine Osmolality 12/20/24 12/20/24 12/20/24 15:48 16:01 20:25 WBC RBC Hgb Hct MCV MCH MCHC RDW Std Deviation RDW Coeff of [place] Plt Count MPV Sodium 127 L Potassium 4.5 Chloride 97 L Carbon Dioxide 23 Anion Gap 7 BUN 36 H Creatinine 1.84 H Est Cr Clr Drug Dosing 46.0 eGFR 38.47 BUN/Creatinine Ratio 19.6 Glucose 233 H POC Glucose 224 H 212 H Calcium 8.6 Total Bilirubin AST ALT Alkaline Phosphatase Troponin I High Sens Total Protein Albumin Globulin Albumin/Globulin Ratio Urine Osmolality 12/20/24 12/21/24 12/21/24 20:33 05:52 07:04 WBC 4.78 L RBC 4.07 L Hgb 12.1 L Hct 34.5 L MCV 84.8 MCH 29.7 MCHC 35.1 RDW Std Deviation 46.8 H RDW Coeff of [place] 15.3 H Plt Count 89 L MPV 12.4 Sodium 126 L 129 L Potassium 4.3 4.4 Chloride 96 L 98 Carbon Dioxide 23 24 Anion Gap 7 7 BUN 38 H 35 H Creatinine 1.81 H 1.66 H Est Cr Clr Drug Dosing 46.8 49.9 eGFR 39.24 43.53 BUN/Creatinine Ratio 21.0 H 21.1 H Glucose 201 H 195 H POC Glucose Calcium 8.4 L 8.4 L Total Bilirubin 1.0 AST 47 H ALT 70 H Alkaline Phosphatase 47 Troponin I High Sens Total Protein 7.1 Albumin 3.5 Globulin 3.6 Albumin/Globulin Ratio 1.0 Urine Osmolality 402 L 12/21/24 07:22 WBC RBC Hgb Hct MCV MCH MCHC RDW Std Deviation RDW Coeff of [place] Plt Count MPV Sodium Potassium Chloride Carbon Dioxide Anion Gap BUN Creatinine Est Cr Clr Drug Dosing eGFR BUN/Creatinine Ratio Glucose POC Glucose 193 H Calcium Total Bilirubin AST ALT Alkaline Phosphatase Troponin I High Sens Total Protein Albumin Globulin Albumin/Globulin Ratio Urine Osmolality PG Care Time/CCT Total # of Minutes Spent Total Time Spent with Patient: Total time spent is greater than 50% in coordination of care (as documented) at patient's floor/unit and/or counseling patient: Coding Level of Care Code 63749 SUB INP/OBS CARE 3/50MIN Diagnoses Hyponatremia E87.1 HOMER (acute kidney injury) N17.9 Chronic kidney disease with active medical management without dialysis, stage 3 (moderate) N18.30 Fluid overload E87.70 Babesiosis B60.00 Enteropathogenic Escherichia coli infection A04.0
--- NOTE | 2024-12-21 09:56 | Hospitalist Progress Note ---
Date of Service December 21, 2024 Assessment & Plan (1) Babesiosis: (2) Acute hyponatremia: (3) Hypoxia: (4) Generalized weakness: (5) Mass of right parotid gland: (6) Status post placement of cardiac pacemaker: (7) Symptomatic bradycardia: (8) HTN (hypertension): (9) Type 2 DM with CKD stage 3 and hypertension: (10) Hyperthyroidism: (11) TIFFANY (obstructive sleep apnea): (12) Hyperlipidemia: Plan 74 y/o male with PMHx that includes h/o heart block s/p pacemaker placement, HTN , T2DM, CKD stage 3, right parotid swelling/mass, BPH, TIFFANY, HLD, hyperthyroidism Noncompliance presents with generalized weakness, malaise, fevers: Babesiosis Demonstrated on peripheral smear Monitor transaminitis and thrombocytopenia Blood cultures NTD Atovaquone azithromycin. Empirical doxycycline pending Remaining tick panel ID Managing Bradycardia Resolved Telemetry K greater than 4 mag greater than 2 PPM interrogation Unrevealing Acute CHF exacerbation? Implicated with bradycardia? CHF protocol orders EKG with LBBB Echo Unchanged from prior with normal EF cardiology signed off outpatient follow-up Continue diuresis Per nephrology Acute hypoxic respiratory failure secondary above Resolved Monitor sats HOMER multifactorial in setting of infection, cardiorenal improving Avoid nephrotoxic meds Hold Lisinopril Monitor Severe Acute on chronic hyponatremia secondary to poor p.o. intake, SIADH. Slowly improving BMP every 6 hours Avoid overcorrection Cortisol elevated. TFTs wnl. Urine osmolality And sodium elevated Encourage p.o. intake Status post 3% Normal saline Nephrology Managing With fluid restriction, diuresis and salt tabs Stool positive EPEC Supportive care Diabetes type 2 Uncontrolled A1c 9 Basal bolus insulin Diabetes education and dietitian Hyperthyroidism methimazole Hypertension Home meds Held for soft BP Narcolepsy Modafinil Generalized weakness PT OT DVT prophylaxis SCDs and ambulation DNR/DNI Disposition Continue PCU monitoring Admission and Anticipated Discharge Date Admission Date: December 19, 2024 Subjective Sitting up in a chair. Denies any symptoms or complaints. I's and O's remain negative and weight is coming down Review of Systems Review of Systems: as per HPI Physical Exam Physical Exam: Constitutional: in mild distress, visibly short of breath HEENT: NCAT, no conjunctival injection CV: RRR, extremities well-perfused, 2-3+ bilateral pitting edema chronic skin changes Resp: Lungs CTAB, +tachypnea, increased work of breathing GI: nondistended, bowel sounds normal, non-tender to palpation MSK: no gross deformities Skin: warm, dry, no rash appreciated Neuro: alert, oriented, no focal neurologic deficit appreciated Results & Data Results & Data Vital Signs (Past 12 Hours) Vital Signs Temp Pulse Pulse Resp BP BP Pulse Ox 12/21/24 09:11 12/21/24 07:42 64 12/21/24 07:23 36.5 C 62 19 99/60 L 92 12/21/24 03:00 36.7 C 61 18 106/71 91 12/20/24 23:24 69 12/20/24 23:00 36.8 C 65 22 112/66 92 12/20/24 22:28 O2 Del Method 12/21/24 09:11 Room Air 12/21/24 07:42 12/21/24 07:23 Room Air 12/21/24 03:00 Room Air 12/20/24 23:24 12/20/24 23:00 Room Air 12/20/24 22:28 Room Air Laboratory Results Abnormal Labs 12/18/24 12/18/24 12/19/24 23:18 23:25 00:30 WBC RBC 4.01 L Hgb 12.1 L Hct 33.9 L RDW Std Deviation RDW Coeff of [place] 14.8 H Plt Count 59 L MPV [place] # (Auto) 0.99 H APTT 32 H VBG pCO2 33 L Sodium 121 L Chloride 92 L BUN 41 H Creatinine 2.05 H BUN/Creatinine Ratio Glucose 205 H POC Glucose Osmolality Calcium 8.1 L Total Bilirubin 1.3 H Direct Bilirubin 0.4 H AST 53 H ALT 53 H Procalcitonin 1.57 H Cortisol AM Sample Urine Protein 2+ H Urine Ketones 1+ H Urine Blood 1+ H U Hyaline Cast (Auto) 3-5 H Urine Osmolality Stool EPEC (PCR) Babesia Smear See Comment A 12/19/24 12/19/24 12/19/24 00:35 00:58 01:20 WBC RBC Hgb Hct RDW Std Deviation RDW Coeff of [place] Plt Count MPV [place] # (Auto) APTT VBG pCO2 Sodium Chloride BUN Creatinine BUN/Creatinine Ratio Glucose POC Glucose Osmolality 272 L Calcium Total Bilirubin Direct Bilirubin AST ALT Procalcitonin Cortisol AM Sample Urine Protein Urine Ketones Urine Blood U Hyaline Cast (Auto) Urine Osmolality 490 L Stool EPEC (PCR) DETECTED A* Babesia Smear 12/19/24 12/19/24 12/19/24 06:05 08:38 11:27 WBC RBC 3.76 L Hgb 11.4 L Hct 31.7 L RDW Std Deviation RDW Coeff of [place] Plt Count 54 L MPV 12.6 H [place] # (Auto) APTT VBG pCO2 Sodium 123 L Chloride 94 L BUN 38 H Creatinine 1.61 H D BUN/Creatinine Ratio 23.6 H Glucose 284 H POC Glucose 192 H 292 H Osmolality Calcium 7.9 L Total Bilirubin 1.1 H Direct Bilirubin AST 49 H ALT 54 H Procalcitonin Cortisol AM Sample 24.38 H Urine Protein Urine Ketones Urine Blood U Hyaline Cast (Auto) Urine Osmolality Stool EPEC (PCR) Babesia Smear 12/19/24 12/19/24 12/19/24 12:09 14:10 16:08 WBC RBC Hgb Hct RDW Std Deviation RDW Coeff of [place] Plt Count MPV [place] # (Auto) APTT VBG pCO2 Sodium 124 L 125 L Chloride 95 L 95 L BUN 38 H 39 H Creatinine 1.78 H 2.05 H BUN/Creatinine Ratio 21.3 H Glucose 300 H 290 H POC Glucose 221 H Osmolality Calcium 8.0 L 8.2 L Total Bilirubin Direct Bilirubin AST ALT Procalcitonin Cortisol AM Sample Urine Protein Urine Ketones Urine Blood U [place]aline [place] (Auto) Urine Osmolality Stool EPEC (PCR) Babesia Smear 12/19/24 12/19/24 12/19/24 16:09 20:15 20:24 WBC RBC Hgb Hct RDW Std Deviation RDW Coeff of [place] Plt Count MPV [place] # (Auto) APTT VBG pCO2 Sodium 127 L 126 L Chloride 95 L 96 L BUN 40 H 41 H Creatinine 1.96 H 2.15 H BUN/Creatinine Ratio 20.4 H Glucose 223 H 220 H POC Glucose 207 H Osmolality Calcium 8.4 L 8.2 L Total Bilirubin Direct Bilirubin AST ALT Procalcitonin Cortisol AM Sample Urine Protein Urine Ketones Urine Blood U Hyaline [place] (Auto) Urine Osmolality Stool EPEC (PCR) Babesia Smear 12/20/24 12/20/24 12/20/24 00:22 03:55 07:17 WBC RBC 3.77 L Hgb 11.2 L Hct 31.8 L RDW Std Deviation RDW Coeff of [place] 15.0 H Plt Count 60 L MPV [place] # (Auto) APTT VBG pCO2 Sodium 127 L 126 L Chloride 96 L 96 L BUN 38 H 35 H Creatinine 1.85 H D 1.76 H BUN/Creatinine Ratio 20.5 H Glucose 197 H 195 H POC Glucose 190 H Osmolality Calcium 8.1 L 7.8 L Total Bilirubin Direct Bilirubin AST ALT Procalcitonin Cortisol AM Sample Urine Protein Urine Ketones Urine Blood U Hyaline Cast (Auto) Urine Osmolality Stool EPEC (PCR) Babesia Smear 12/20/24 12/20/24 12/20/24 08:23 11:23 12:40 WBC RBC Hgb Hct RDW Std Deviation RDW Coeff of [place] Plt Count MPV [place] # (Auto) APTT VBG pCO2 Sodium 124 L 128 L Chloride 95 L 96 L BUN 34 H 33 H Creatinine 1.59 H 1.83 H BUN/Creatinine Ratio 21.4 H Glucose 310 H* 284 H POC Glucose 230 H Osmolality Calcium 8.0 L Total Bilirubin Direct Bilirubin AST ALT Procalcitonin Cortisol AM Sample Urine Protein Urine Ketones Urine Blood U Hyaline Cast (Auto) Urine Osmolality Stool EPEC (PCR) Babesia Smear 12/20/24 12/20/24 12/20/24 15:48 16:01 20:25 WBC RBC Hgb Hct RDW Std Deviation RDW Coeff of [place] Plt Count MPV [place] # (Auto) APTT VBG pCO2 Sodium 127 L Chloride 97 L BUN 36 H Creatinine 1.84 H BUN/Creatinine Ratio Glucose 233 H POC Glucose 224 H 212 H Osmolality Calcium Total Bilirubin Direct Bilirubin AST ALT Procalcitonin Cortisol AM Sample Urine Protein Urine Ketones Urine Blood U Hyaline Cast (Auto) Urine Osmolality Stool EPEC (PCR) Babesia Smear 12/20/24 12/20/24 12/21/24 20:33 Unknown 05:52 WBC RBC Hgb Hct RDW Std Deviation RDW Coeff of [place] Plt Count MPV [place] # (Auto) APTT VBG pCO2 Sodium 126 L Chloride 96 L BUN 38 H Creatinine 1.81 H BUN/Creatinine Ratio 21.0 H Glucose 201 H POC Glucose Osmolality Calcium 8.4 L Total Bilirubin Direct Bilirubin AST ALT Procalcitonin Cortisol AM Sample Urine Protein Urine Ketones Urine Blood U Hyaline Cast (Auto) Urine Osmolality 496 L 402 L Stool EPEC (PCR) Babesia Smear 12/21/24 12/21/24 07:04 07:22 WBC 4.78 L RBC 4.07 L Hgb 12.1 L Hct 34.5 L RDW Std Deviation 46.8 H RDW Coeff of [place] 15.3 H Plt Count 89 L MPV [place] # (Auto) APTT VBG pCO2 Sodium 129 L Chloride BUN 35 H Creatinine 1.66 H BUN/Creatinine Ratio 21.1 H Glucose 195 H POC Glucose 193 H Osmolality Calcium 8.4 L Total Bilirubin Direct Bilirubin AST 47 H ALT 70 H Procalcitonin Cortisol AM Sample Urine Protein Urine Ketones Urine Blood U Hyaline Cast (Auto) Urine Osmolality Stool EPEC (PCR) Babesia Smear PG Care Time/CCT Total # of Minutes Spent Total Time Spent with Patient: Total time spent is greater than 50% in coordination of care (as documented) at patient's floor/unit and/or counseling patient: Coding Level of Care Code 83316 SUB INP/OBS CARE 2/35MIN Diagnoses Babesiosis B60.00 Acute hyponatremia E87.1 Hypoxia R09.02 Generalized weakness R53.1 Mass of right parotid gland K11.8 Status post placement of cardiac pacemaker Z95.0 Symptomatic bradycardia R00.1 Primary hypertension I10 Hypertension type: primary hypertension Type 2 DM with CKD stage 3 and hypertension E11.22; I12.9; N18.3 Hyperthyroidism E05.90 TIFFANY (obstructive sleep apnea) G47.33 Hyperlipidemia E78.5 (8) HTN (hypertension) Hypertension type: primary hypertension Qualified Code(s): I10 - Essential (primary) hypertension
--- NOTE | 2024-12-21 10:37 | Infectious Disease Progress Nt ---
Date of Service December 21, 2024 Assessment & Plan (1) Babesiosis: (2) Enteropathogenic Escherichia coli infection: (3) Thrombocytopenia: Plan Problems: #Babesia #Thrombocytopenia #HOMER: resolved #Elevated LFTs Micro: 12/19 GI pathogen panel: + EPEC 12/19 RPP: neg 12/19 BCx x2: NGTD 12/19 Lyme screen: negative 12/19 Anaplasma PCR: pending 12/19 Babesia PCR: pending 12/19 Ehrlichia PCR: pending 12/19 Q fever Ab: pending 12/19 Rickettsia Ab: pending 12/19 Typhus fever Ab: pending 12/18 Anaplasma/Babesia smear: Babesia seen Abx: Azithro 12/19 - present Atovaquone 12/19 - present Doxy 12/19 - present Cefepime 12/19 74 yo M with history of heart block s/p pacemaker, HTN, T2DM, CKD, BPH, TIFFANY, HLD, hyperthyroidism who presented on 12/18 with generalized weakness, malaise, fevers x 5 days, found to have Babesia. Denied rash, arthralgias. On presentation, pt was febrile to 38.7, RR 33, 88% on room air requiring 2 L NC. Labs showed WBC 6.25, Hb 12, plt 59, Na 121, Cr 2.05, AST 53, ALT 53, Tbili 1.3, procal 1.57. Respiratory pathogen panel negative. CXR with cardiomegaly and mild pulmonary vascular congestion. Anaplasma/Babesia smear was positive for Babesia. Was given a dose of cefepime in the ED, then was started on atovaquone and azithromycin, as well as doxycycline. Anaplasma, Ehrlichia and Babesia PCR, Q fever Ab, Rickettsia Ab, Typhus fever Ab pending. Lyme screen negative. C diff negative. GI pathogen panel positive for EPEC. On my evaluation, pt reports feeling much improved, although not quite back to baseline. He states he has not been outside much because he takes care of his . However, he did have to lay on the ground recently to change a motor. Has a dog and cat, and the dog does go outdoors. Denies rashes. Blood smear 12/20 with <0.1% parasitemia. Recommendations: - Switched from IV azithro to PO azithro 250 mg daily. Continue atovaquone 750 mg PO q12h. Anticipate 7-10 day course - Follow-up Anaplasma, Ehrlichia, Babesia PCR - Can continue doxycycline for now Will continue to follow. Admission and Anticipated Discharge Date Admission Date: December 19, 2024 Subjective This patient recommendation is based on a telemedicine consult request which was completed asynchronously through chart review and information provided by the primary physician. The patient was not seen or examined today. The evaluation is consultative in nature and all patient care and treatment decisions can either be accepted or rejected by the patient's primary hospital-based treating physician using their own independent medical judgment for their patient. Time Spent Reviewing Chart: 11 - 20 minutes Afebrile Plt 60 --> 89 AST 47, ALT 70, Tbili 1 Yesterday's blood smear with <0.1% parasitemia Results & Data Vital Signs (Past 12 Hours) Vital Signs Temp Pulse Pulse Resp BP BP Pulse Ox 12/21/24 09:11 12/21/24 07:42 64 12/21/24 07:23 36.5 C 62 19 99/60 L 92 12/21/24 03:00 36.7 C 61 18 106/71 91 12/20/24 23:24 69 12/20/24 23:00 36.8 C 65 22 112/66 92 O2 Del Method 12/21/24 09:11 Room Air 12/21/24 07:42 12/21/24 07:23 Room Air 12/21/24 03:00 Room Air 12/20/24 23:24 12/20/24 23:00 Room Air Laboratory Results Short CBC 12/21/24 Range/Units 07:04 WBC 4.78 L (4.8-10.8) K/ul Hgb 12.1 L (14.0-18.0) g/dl Hct 34.5 L (42.0-52.0) % Plt Count 89 L (130-400) K/uL BMP 12/20/24 12/20/24 12/20/24 12:40 15:48 20:33 Sodium 128 L 127 L 126 L Potassium 4.7 4.5 4.3 Chloride 96 L 97 L 96 L Carbon Dioxide 25 23 23 BUN 33 H 36 H 38 H Creatinine 1.83 H 1.84 H 1.81 H Glucose 284 H 233 H 201 H Calcium 8.6 8.6 8.4 L 12/21/24 07:04 Sodium 129 L Potassium 4.4 Chloride 98 Carbon Dioxide 24 BUN 35 H Creatinine 1.66 H Glucose 195 H Calcium 8.4 L Liver Function 12/21/24 Range/Units 07:04 Total Bilirubin 1.0 (0.2-1.0) mg/dl AST 47 H (13-39) U/L ALT 70 H (7-52) U/L Alkaline Phosphatase 47 (34-104) U/L Albumin 3.5 (3.4-5.0) gm/dl Medications Administered Current Inpatient Medications Acetaminophen (Acetaminophen 500 Mg Tab) 1,000 mg PO Q8H PRN PRN Reason: Pain or Fever Stop: 01/18/25 04:20 Last Admin: 12/20/24 04:43 Dose: 1,000 mg Aspirin (Aspirin 81 Mg Ectab) [facility] [place] Stop: 01/18/25 08:59 Last Admin: 12/21/24 08:57 Dose: 81 mg Atovaquone (Atovaquone 750 Mg/5 Ml Udc) 750 mg PO Q12H MICHELLE Stop: 01/18/25 08:59 Last Admin: 12/21/24 08:58 Dose: 750 mg Dextrose (Dextrose 50% 50 Ml Syringe) 25 - 50 ml IV UD PRN; Protocol PRN Reason: Hypoglycemia Protocol Stop: 01/18/25 04:20 Furosemide (Furosemide 40 Mg Tab) 40 [facility] [place] Stop: 01/19/25 10:44 Last Admin: 12/21/24 08:57 Dose: 40 mg Glucagon (Glucagon For Inj 1 Mg Vial) 1 mg SQ UD PRN; Protocol PRN Reason: Hypoglycemia Protocol Stop: 01/18/25 04:20 Glucose (Glucose 40% Gel 15 Gm Tube) 15 - 30 gm PO UD PRN; Protocol PRN Reason: Hypoglycemia Protocol Stop: 01/18/25 04:20 Glucose (Glucose 10 Tab/Tube) 4 - 8 tab PO UD PRN; Protocol PRN Reason: Hypoglycemia Protocol Stop: 01/18/25 04:20 Azithromycin (Zithromax) 500 mg in 255 mls @ 127.5 mls/hr IV Q24H MICHELLE Stop: 12/26/24 22:59 Last Infusion: 12/21/24 04:59 Dose: Infused Insulin Aspart (Insulin Aspart Per Unit Charge) 0 units SC ACHS [facility] Stop: 01/18/25 04:44 Last Admin: 12/21/24 08:56 Dose: 2 units Insulin Glargine (Lantus Per Unit Charge) 55 units SQ QDL [facility] Stop: 01/20/25 11:29 Lisinopril (Lisinopril 20 Mg Tab) 20 mg PO HS [facility] Stop: 01/18/25 20:59 Melatonin (Melatonin 3 Mg Tab) 3 mg PO HS PRN PRN Reason: Sleep Stop: 01/18/25 04:20 Methimazole (Methimazole 5 Mg Tablet) 10 mg PO UD [facility] Stop: 01/18/25 04:20 Miscellaneous (Carbohydrates For Hypoglycemia ) 15 - 30 gm PO UD PRN PRN Reason: Hypoglycemia Protocol Stop: 01/18/25 04:20 Modafinil (Modafinil 100 Mg Tab) 200 mg PO QAM [facility] Stop: 01/18/25 08:59 Last Admin: 12/21/24 08:59 Dose: 200 mg Ondansetron HCl (Ondansetron Inj 2 Mg/Ml 2 Ml Vial) 4 mg IV Q6H PRN PRN Reason: Nausea Stop: 01/18/25 04:20 Last Admin: 12/20/24 21:08 Dose: 4 mg Polyethylene Glycol (Polyethylene (Miralax) 17 Gm Pack) 17 gm PO DAILY PRN PRN Reason: Constipation Stop: 01/18/25 04:20 Sodium Chloride (Sodium Chloride 1 Gm Tablet) 2 gm PO BID [facility] Stop: 01/19/25 10:44 Last Admin: 12/21/24 08:57 Dose: 2 gm
[2024-12-21] MEDS: AZITHROMYCIN 250 MG TAB PO SCH (14:59)
[2024-12-21 15:06] LABS: Anion Gap 7.0 (3-11); Blood Urea Nitrogen 38.0 mg/dl (6-23); Calcium 8.5 mg/dl (8.6-10.3); Carbon Dioxide 26.0 mmol/L (21-32); Chloride 95.0 mmol/L (98-107); Creatinine Clr Calc Pharmacy 42.7 ml/min; Glucose 330.0 mg/dl (70-99(Fasting)); Potassium 4.4 mmol/L (3.5-5.1); Sodium 128.0 mmol/L (136-145)
[2024-12-22 03:24] VITALS: TEMP 97.7
[2024-12-22 07:29] LABS: Hematocrit (blood only) 34.4 % (42.0-52.0); Hemoglobin 12.2 g/dl (14.0-18.0); Mean Corpuscular Hemoglobin 30.2 pg (25.0-34.0); Mean Corpuscular Volume 85.1 fL (80.0-100.0); Platelet Count 147 K/uL (130-400); RDW Standard Deviation 47.4 fL (36.4-46.3); Red Blood Count 4.04 M/uL (4.70-6.10); White Blood Count 5.45 K/ul (4.8-10.8)
[2024-12-22 07:49] VITALS: BP 94/59; PULSE 60; RESP 18; O2SAT 93
[2024-12-22 07:57] LABS: Alanine Aminotransferase 62.0 U/L (7-52); Albumin Globulin Ratio 1.0 (0.9-2); Alkaline Phosphatase 49.0 U/L (34-104); Anion Gap 7.0 (3-11); Bilirubin,Total 1.0 mg/dl (0.2-1.0); Blood Urea Nitrogen 38.0 mg/dl (6-23); Calcium 8.6 mg/dl (8.6-10.3); Carbon Dioxide 25.0 mmol/L (21-32); Chloride 99.0 mmol/L (98-107); Creatinine Clr Calc Pharmacy 51.8 ml/min; Globulin 3.7 gm/dl (2.5-4.0); Glucose 197.0 mg/dl (70-99(Fasting)); Potassium 4.5 mmol/L (3.5-5.1); Sodium 131.0 mmol/L (136-145); Total Protein 7.4 gm/dl (6.0-8.3)
--- NOTE | 2024-12-22 09:09 | Nephrology Progress Note ---
Date of Service December 22, 2024 Assessment & Plan (1) Hyponatremia: Plan: * H/O SIADH managed as an outpatient with fluid restriction and low-dose furosemide. Denny 34, Uosm 490 this admission. * Patient is currently asymptomatic. He had brisk diuresis in response to IV furosemide yesterday * Serum Na improved to 131 mmol/L this am * Continue NaCl 2g po BID, furosemide 40 mg qAM * Monitor serum Na, UO, Uosm * When discharged, recommend continue outpatient dose of furosemide 20 mg two tablets daily and reduce NaCl to 1g po BID. Patient will need BMP, Uosm 1-2 days prior to outpatient visit and should follow up w/ Dr. Denney in [facility] within 7-14 days. (2) HOMER (acute kidney injury): Plan: * HOMER - resolved * BP remains relatively low. Continue to hold lisinopril (3) Chronic kidney disease with active medical management without dialysis, stage 3 (moderate): Plan: * CKD stage G3 (moderate impairment). Baseline creatinine has been 1.42.0. Renal impairment has been attributed to diabetic nephropathy and hypertensive nephrosclerosis. (4) Fluid overload: Plan: * Clinically improved * Monitor I&O * 12/19/24 echo: LVEF 55-60%, no RMA, moderate LVH. No significant valvular abnormality. No change compared to 10/26/2021 (5) Babesiosis: Plan: * On atovaquone, azithromycin (6) Enteropathogenic Escherichia coli infection: Plan: * Supportive care Admission and Anticipated Discharge Date Admission Date: December 19, 2024 Subjective Mr. Dunlap was evaluated in his hospital room this morning. He denied fever, myalgias, focal neurologic weakness or diarrhea. He reports brisk UO in re sponse to oral furosemide and states that he is tolerating NaCl tablets without GI upset Review of Systems Constitutional: no fever, no body aches and no weakness Eyes: no problem reported Ear, Nose, Mouth, Throat: no problem reported Respiratory: no cough and no dyspnea Cardiovascular: + dyspnea on exertion; no chest pain Gastrointestinal: no abdominal pain, no nausea, no vomiting and no diarrhea/loose stools Genitourinary: no problem reported Integumentary: no rash Neurologic: no localized weakness Physical Exam Constitutional: not in distress Eyes: PERRL, conjunctivae normal, anicteric sclerae ENMT: external ear and nose normal, oropharynx normal Neck: trachea midline, no thyromegaly Respiratory: normal respiratory effort, lungs clear to auscultation Cardiovascular: Rate/Rhythm: regular rate and regular rhythm Extremities: no edema Gastrointestinal (Abdomen): normal bowel sounds, soft, nontender, no hepatosplenomegaly Musculoskeletal: Extremities: no cyanosis and no clubbing Neurologic: no focal motor deficits Results & Data Vital Signs (Past 12 Hours) Vital Signs Temp Pulse Pulse Resp BP Pulse Ox O2 Del Method 12/22/24 07:48 36.5 C 60 18 94/59 L 93 Room Air 12/22/24 07:09 Room Air 12/22/24 07:09 75 12/22/24 03:24 36.5 C 56 L 20 119/77 95 Room Air 12/21/24 23:41 36.6 C 66 20 101/67 95 Room Air 12/21/24 22:17 Room Air 12/21/24 22:00 63 Laboratory Results Laboratory Results - last 24 hr 12/21/24 12/21/24 12/21/24 11:18 11:20 14:01 WBC RBC Hgb Hct MCV MCH MCHC RDW Std Deviation RDW Coeff of [place] Plt Count MPV Sodium 128 L Potassium 4.4 Chloride 95 L Carbon Dioxide 26 Anion Gap 7 BUN 38 H Creatinine 1.94 H Est Cr Clr Drug Dosing 42.7 eGFR 36.10 BUN/Creatinine Ratio 19.6 Glucose 330 H* POC Glucose 353 H* 401 H* Calcium 8.5 L Total Bilirubin AST ALT Alkaline Phosphatase Total Protein Albumin Globulin Albumin/Globulin Ratio 12/21/24 12/21/24 12/22/24 16:28 19:46 07:05 WBC 5.45 RBC 4.04 L Hgb 12.2 L Hct 34.4 L MCV 85.1 MCH 30.2 MCHC 35.5 RDW Std Deviation 47.4 H RDW Coeff of [place] 15.4 H Plt Count 147 D MPV 11.4 Sodium 131 L Potassium 4.5 Chloride 99 Carbon Dioxide 25 Anion Gap 7 BUN 38 H Creatinine 1.60 H D Est Cr Clr Drug Dosing 51.8 eGFR 45.50 BUN/Creatinine Ratio 23.8 H Glucose 197 H POC Glucose 243 H 236 H Calcium 8.6 Total Bilirubin 1.0 AST 39 ALT 62 H Alkaline Phosphatase 49 Total Protein 7.4 Albumin 3.7 Globulin 3.7 Albumin/Globulin Ratio 1.0 12/22/24 07:08 WBC RBC Hgb Hct MCV MCH MCHC RDW Std Deviation RDW Coeff of [place] Plt Count MPV Sodium Potassium Chloride Carbon Dioxide Anion Gap BUN Creatinine Est Cr Clr Drug Dosing eGFR BUN/Creatinine Ratio Glucose POC Glucose 175 H Calcium Total Bilirubin AST ALT Alkaline Phosphatase Total Protein Albumin Globulin Albumin/Globulin Ratio PG Care Time/CCT Total # of Minutes Spent Total Time Spent with Patient: Total time spent is greater than 50% in coordination of care (as documented) at patient's floor/unit and/or counseling patient: Coding Level of Care Code 47134 SUB INP/OBS CARE 3/50MIN Diagnoses Hyponatremia E87.1 HOMER (acute kidney injury) N17.9 Chronic kidney disease with active medical management without dialysis, stage 3 (moderate) N18.30 Fluid overload E87.70 Babesiosis B60.00 Enteropathogenic Escherichia coli infection A04.0
--- NOTE | 2024-12-22 09:56 | Hospitalist Progress Note ---
Date of Service December 22, 2024 Assessment & Plan (1) Babesiosis: (2) Acute hyponatremia: (3) Hypoxia: (4) Generalized weakness: (5) Mass of right parotid gland: (6) Status post placement of cardiac pacemaker: (7) Symptomatic bradycardia: (8) HTN (hypertension): (9) Type 2 DM with CKD stage 3 and hypertension: (10) Hyperthyroidism: (11) TIFFANY (obstructive sleep apnea): (12) Hyperlipidemia: Plan 74 y/o male with PMHx that includes h/o heart block s/p pacemaker placement, HTN , T2DM, CKD stage 3, right parotid swelling/mass, BPH, TIFFANY, HLD, hyperthyroidism Noncompliance presents with generalized weakness, malaise, fevers: Babesiosis Demonstrated on peripheral smear Monitor transaminitis and thrombocytopenia Blood cultures NTD Atovaquone azithromycin. Empirical doxycycline pending Remaining tick panel ID Managing Bradycardia Resolved Telemetry K greater than 4 mag greater than 2 PPM interrogation Unrevealing Acute CHF exacerbation? Implicated with bradycardia? CHF protocol orders EKG with LBBB Echo Unchanged from prior with normal EF cardiology signed off outpatient follow-up Continue diuresis Per nephrology Acute hypoxic respiratory failure secondary above Resolved Monitor sats HOMER multifactorial in setting of infection, cardiorenal improving Avoid nephrotoxic meds Hold Lisinopril Also for soft BP Monitor Severe Acute on chronic hyponatremia secondary to poor p.o. intake, SIADH. Slowly improving BMP every 6 hours Avoid overcorrection Cortisol elevated. TFTs wnl. Urine osmolality And sodium elevated Encourage p.o. intake Status post 3% Normal saline Nephrology Managing With fluid restriction, diuresis and salt tabs Stool positive EPEC Supportive care Diabetes type 2 Uncontrolled A1c 9 Basal bolus insulin Diabetes education and dietitian Hyperthyroidism methimazole Hypertension Home meds Held for soft BP Narcolepsy Modafinil Generalized weakness PT OT DVT prophylaxis SCDs and ambulation DNR/DNI Disposition Discharge home today if okay with nephrology and ID Admission and Anticipated Discharge Date Admission Date: December 19, 2024 Subjective Doing very well sitting up in chair more energetic everyday wondering when he can go home. Entirely asymptomatic. Discussed with RN if no objection by ID and nephrology he can go home today. Sodium has improved. Switched to oral antimicrobials. Noted to be walking in the hallways shortly after evaluation no issues. Review of Systems Review of Systems: as per HPI Physical Exam Physical Exam: Constitutional:NAD AAO x 3 HEENT: NCAT, no conjunctival injection CV: RRR, extremities well-perfused, 2-3+ bilateral pitting edema chronic skin changes Resp: Lungs CTAB, Clear GI: nondistended, bowel sounds normal, non-tender to palpation MSK: no gross deformities Skin: warm, dry, no rash appreciated Neuro: alert, oriented, no focal neurologic deficit appreciated Results & Data Results & Data Vital Signs (Past 12 Hours) Vital Signs Temp Pulse Pulse Resp BP Pulse Ox O2 Del Method 12/22/24 07:48 36.5 C 60 18 94/59 L 93 Room Air 12/22/24 07:09 Room Air 12/22/24 07:09 75 12/22/24 03:24 36.5 C 56 L 20 119/77 95 Room Air 12/21/24 23:41 36.6 C 66 20 101/67 95 Room Air 12/21/24 22:17 Room Air 12/21/24 22:00 63 Laboratory Results Abnormal Labs 12/18/24 12/18/24 12/19/24 23:18 23:25 00:30 WBC RBC 4.01 L Hgb 12.1 L Hct 33.9 L RDW Std Deviation RDW Coeff of [place] 14.8 H Plt Count 59 L MPV [place] # (Auto) 0.99 H APTT 32 H VBG pCO2 33 L Sodium 121 L Chloride 92 L BUN 41 H Creatinine 2.05 H BUN/Creatinine Ratio Glucose 205 H POC Glucose Osmolality Calcium 8.1 L Total Bilirubin 1.3 H Direct Bilirubin 0.4 H AST 53 H ALT 53 H Procalcitonin 1.57 H Cortisol AM Sample Urine Protein 2+ H Urine Ketones 1+ H Urine Blood 1+ H U Hyaline Cast (Auto) 3-5 H Urine Osmolality Stool EPEC (PCR) Babesia Smear See Comment A 12/19/24 12/19/24 12/19/24 00:35 00:58 01:20 WBC RBC Hgb Hct RDW Std Deviation RDW Coeff of [place] Plt Count MPV [place] # (Auto) APTT VBG pCO2 Sodium Chloride BUN Creatinine BUN/Creatinine Ratio Glucose POC Glucose Osmolality 272 L Calcium Total Bilirubin Direct Bilirubin AST ALT Procalcitonin Cortisol AM Sample Urine Protein Urine Ketones Urine Blood U Hyaline Cast (Auto) Urine Osmolality 490 L Stool EPEC (PCR) DETECTED A* Babesia Smear 12/19/24 12/19/24 12/19/24 06:05 08:38 11:27 WBC RBC 3.76 L Hgb 11.4 L Hct 31.7 L RDW Std Deviation RDW Coeff of [place] Plt Count 54 L MPV 12.6 H [place] # (Auto) APTT VBG pCO2 Sodium 123 L Chloride 94 L BUN 38 H Creatinine 1.61 H D BUN/Creatinine Ratio 23.6 H Glucose 284 H POC Glucose 192 H 292 H Osmolality Calcium 7.9 L Total Bilirubin 1.1 H Direct Bilirubin AST 49 H ALT 54 H Procalcitonin Cortisol AM Sample 24.38 H Urine Protein Urine Ketones Urine Blood U Hyaline Cast (Auto) Urine Osmolality Stool EPEC (PCR) Babesia Smear 12/19/24 12/19/24 12/19/24 12:09 14:10 16:08 WBC RBC Hgb Hct RDW Std Deviation RDW Coeff of [place] Plt Count MPV [place] # (Auto) APTT VBG pCO2 Sodium 124 L 125 L Chloride 95 L 95 L BUN 38 H 39 H Creatinine 1.78 H 2.05 H BUN/Creatinine Ratio 21.3 H Glucose 300 H 290 H POC Glucose 221 H Osmolality Calcium 8.0 L 8.2 L Total Bilirubin Direct Bilirubin AST ALT Procalcitonin Cortisol AM Sample Urine Protein Urine Ketones Urine Blood U Hyaline Cast (Auto) Urine Osmolality Stool EPEC (PCR) Babesia Smear 12/19/24 12/19/24 12/19/24 16:09 20:15 20:24 WBC RBC Hgb Hct RDW Std Deviation RDW Coeff of [place] Plt Count MPV [place] # (Auto) APTT VBG pCO2 Sodium 127 L 126 L Chloride 95 L 96 L BUN 40 H 41 H Creatinine 1.96 H 2.15 H BUN/Creatinine Ratio 20.4 H Glucose 223 H 220 H POC Glucose 207 H Osmolality Calcium 8.4 L 8.2 L Total Bilirubin Direct Bilirubin AST ALT Procalcitonin Cortisol AM Sample Urine Protein Urine Ketones Urine Blood U Hyaline Cast (Auto) Urine Osmolality Stool EPEC (PCR) Babesia Smear 12/20/24 12/20/24 12/20/24 00:22 03:55 07:17 WBC RBC 3.77 L Hgb 11.2 L Hct 31.8 L RDW Std Deviation RDW Coeff of [place] 15.0 H Plt Count 60 L MPV [place] # (Auto) APTT VBG pCO2 Sodium 127 L 126 L Chloride 96 L 96 L BUN 38 H 35 H Creatinine 1.85 H D 1.76 H BUN/Creatinine Ratio 20.5 H Glucose 197 H 195 H POC Glucose 190 H Osmolality Calcium 8.1 L 7.8 L Total Bilirubin Direct Bilirubin AST ALT Procalcitonin Cortisol AM Sample Urine Protein Urine Ketones Urine Blood U Hyaline Cast (Auto) Urine Osmolality Stool EPEC (PCR) Babesia Smear 12/20/24 12/20/24 12/20/24 08:23 11:23 12:40 WBC RBC Hgb Hct RDW Std Deviation RDW Coeff of [place] Plt Count MPV [place] # (Auto) APTT VBG pCO2 Sodium 124 L 128 L Chloride 95 L 96 L BUN 34 H 33 H Creatinine 1.59 H 1.83 H BUN/Creatinine Ratio 21.4 H Glucose 310 H* 284 H POC Glucose 230 H Osmolality Calcium 8.0 L Total Bilirubin Direct Bilirubin AST ALT Procalcitonin Cortisol AM Sample Urine Protein Urine Ketones Urine Blood U Hyaline Cast (Auto) Urine Osmolality Stool EPEC (PCR) Babesia Smear 12/20/24 12/20/24 12/20/24 15:48 16:01 20:25 WBC RBC Hgb Hct RDW Std Deviation RDW Coeff of [place] Plt Count MPV [place] # (Auto) APTT VBG pCO2 Sodium 127 L Chloride 97 L BUN 36 H Creatinine 1.84 H BUN/Creatinine Ratio Glucose 233 H POC Glucose 224 H 212 H Osmolality Calcium Total Bilirubin Direct Bilirubin AST ALT Procalcitonin Cortisol AM Sample Urine Protein Urine Ketones Urine Blood U Hyaline Cast (Auto) Urine Osmolality Stool EPEC (PCR) Babesia Smear 12/20/24 12/20/24 12/21/24 20:33 Unknown 05:52 WBC RBC Hgb Hct RDW Std Deviation RDW Coeff of [place] Plt Count MPV [place] # (Auto) APTT VBG pCO2 Sodium 126 L Chloride 96 L BUN 38 H Creatinine 1.81 H BUN/Creatinine Ratio 21.0 H Glucose 201 H POC Glucose Osmolality Calcium 8.4 L Total Bilirubin Direct Bilirubin AST ALT Procalcitonin Cortisol AM Sample Urine Protein Urine Ketones Urine Blood U Hyaline Cast (Auto) Urine Osmolality 496 L 402 L Stool EPEC (PCR) Babesia Smear 12/21/24 12/21/24 12/21/24 07:04 07:22 11:18 WBC 4.78 L RBC 4.07 L Hgb 12.1 L Hct 34.5 L RDW Std Deviation 46.8 H RDW Coeff of [place] 15.3 H Plt Count 89 L MPV [place] # (Auto) APTT VBG pCO2 Sodium 129 L Chloride BUN 35 H Creatinine 1.66 H BUN/Creatinine Ratio 21.1 H Glucose 195 H POC Glucose 193 H 353 H* Osmolality Calcium 8.4 L Total Bilirubin Direct Bilirubin AST 47 H ALT 70 H Procalcitonin Cortisol AM Sample Urine Protein Urine Ketones Urine Blood U Hyaline Cast (Auto) Urine Osmolality Stool EPEC (PCR) Babesia Smear 12/21/24 12/21/24 12/21/24 11:20 14:01 16:28 WBC RBC Hgb Hct RDW Std Deviation RDW Coeff of [place] Plt Count MPV [place] # (Auto) APTT VBG pCO2 Sodium 128 L Chloride 95 L BUN 38 H Creatinine 1.94 H BUN/Creatinine Ratio Glucose 330 H* POC Glucose 401 H* 243 H Osmolality Calcium 8.5 L Total Bilirubin Direct Bilirubin AST ALT Procalcitonin Cortisol AM Sample Urine Protein Urine Ketones Urine Blood U Hyaline Cast (Auto) Urine Osmolality Stool EPEC (PCR) Babesia Smear 12/21/24 12/22/24 12/22/24 19:46 07:05 07:08 WBC RBC 4.04 L Hgb 12.2 L Hct 34.4 L RDW Std Deviation 47.4 H RDW Coeff of [place] 15.4 H Plt Count MPV [place] # (Auto) APTT VBG pCO2 Sodium 131 L Chloride BUN 38 H Creatinine 1.60 H D BUN/Creatinine Ratio 23.8 H Glucose 197 H POC Glucose 236 H 175 H Osmolality Calcium Total Bilirubin Direct Bilirubin AST ALT 62 H Procalcitonin Cortisol AM Sample Urine Protein Urine Ketones Urine Blood U Hyaline Cast (Auto) Urine Osmolality Stool EPEC (PCR) Babesia Smear Diagnostic Findings Chest X-Ray 12/18/24 23:25 Exam(s): XR CXR 1 VIEW EXAM: XR Chest, 1 View CLINICAL HISTORY: Sepsis. TECHNIQUE: Frontal view of the chest. COMPARISON: 10/27/2021 FINDINGS: Left subclavian dual-chamber pacemaker is present. Heart is enlarged. Mild pulmonary vascular congestion. Hypoventilation. No definite pneumonia. No pleural effusion or pneumothorax. Bones are unchanged. IMPRESSION: Cardiomegaly. Mild pulmonary vascular congestion. Electronically signed by: Nitish Chirinos M.D. 12/19/24 00:58 AM PG Care Time/CCT Total # of Minutes Spent Total Time Spent with Patient: Total time spent is greater than 50% in coordination of care (as documented) at patient's floor/unit and/or counseling patient: Coding Level of Care Code 56842 SUB INP/OBS CARE 2/35MIN Diagnoses Babesiosis B60.00 Acute hyponatremia E87.1 Hypoxia R09.02 Generalized weakness R53.1 Mass of right parotid gland K11.8 Status post placement of cardiac pacemaker Z95.0 Symptomatic bradycardia R00.1 Primary hypertension I10 Hypertension type: primary hypertension Type 2 DM with CKD stage 3 and hypertension E11.22; I12.9; N18.3 Hyperthyroidism E05.90 TIFFANY (obstructive sleep apnea) G47.33 Hyperlipidemia E78.5 (8) HTN (hypertension) Hypertension type: primary hypertension Qualified Code(s): I10 - Essential (primary) hypertension
--- NOTE | 2024-12-22 10:08 | Discharge Summary ---
Discharge Summary Date of Service December 22, 2024 Principal Dx & Hospital Course #1 = Principal Diagnosis (1) Babesiosis: (2) Acute hyponatremia: (3) Hypoxia: (4) Generalized weakness: (5) Mass of right parotid gland: (6) Status post placement of cardiac pacemaker: (7) Symptomatic bradycardia: (8) HTN (hypertension): (9) Type 2 DM with CKD stage 3 and hypertension: (10) Hyperthyroidism: (11) TIFFANY (obstructive sleep apnea): (12) Hyperlipidemia: Plan subjective: Doing very well sitting up in chair more energetic everyday wondering when he can go home. Entirely asymptomatic. Discussed with RN if no objection by ID a nd nephrology he can go home today. Sodium has improved. Switched to oral antimicrobials. Noted to be walking in the hallways shortly after evaluation no issues. Conditional discharge order placed okay to go home if okay with ID and nephrology A/P: 74 y/o male with PMHx that includes h/o heart block s/p pacemaker placement, HTN, T2DM, CKD stage 3, right parotid swelling/mass, BPH, TIFFANY, HLD, hyperthyroidism Noncompliance presents with generalized weakness, malaise, fevers: Babesiosis Demonstrated on peripheral smear Monitor transaminitis and thrombocytopenia Blood cultures NTD Atovaquone azithromycin. Empirical doxycycline pending Remaining tick panel ID Managing Bradycardia Resolved Telemetry K greater than 4 mag greater than 2 PPM interrogation Unrevealing Acute CHF exacerbation? Implicated with bradycardia? CHF protocol orders EKG with LBBB Echo Unchanged from prior with normal EF cardiology signed off outpatient follow-up Continue diuresis Per nephrology Acute hypoxic respiratory failure secondary above Resolved Monitor sats HOMER multifactorial in setting of infection, cardiorenal improving Avoid nephrotoxic meds Hold Lisinopril Also for soft BP Monitor Severe Acute on chronic hyponatremia secondary to poor p.o. intake, SIADH. Slowly improving BMP every 6 hours Avoid overcorrection Cortisol elevated. TFTs wnl. Urine osmolality And sodium elevated Encourage p.o. intake Status post 3% Normal saline Nephrology Managing With fluid restriction, diuresis and salt tabs Stool positive EPEC Supportive care Diabetes type 2 Uncontrolled A1c 9 Basal bolus insulin Diabetes education and dietitian Hyperthyroidism methimazole Hypertension Home meds Held for soft BP Narcolepsy Modafinil Generalized weakness PT OT DVT prophylaxis SCDs and ambulation DNR/DNI Disposition Discharge home today if okay with nephrology and ID Admission HPI Per Admitting Provider 74 y/o male with PMHx that includes h/o heart block s/p pacemaker placement, HTN, T2DM, CKD stage 3, right parotid swelling/mass, BPH, TIFFANY, HLD, hyperthyroidism presents with generalized weakness, malaise, fevers. Sx started about 5 days ago. Denies significant arthralgias. Denies new rashes. Denies N/V/D. Denies chest pain. Notes mild shortness of breath but states this is not too far from his baseline, though he has never required home supplemental O2. Has also had poor appetite over past 2 days. ED Course: Labs notable for hyponatremia (Na 121), thrombocytopenia (Plt 59), mild transaminitis, Cr 2.05 (baseline ~1.5) Procal elevated Babesia smear positive Discharge Exam Constitutional:NAD AAO x 3 HEENT: NCAT, no conjunctival injection CV: RRR, extremities well-perfused, 2-3+ bilateral pitting edema chronic skin changes Resp: Lungs CTAB, Clear GI: nondistended, bowel sounds normal, non-tender to palpation MSK: no gross deformities Skin: warm, dry, no rash appreciated Neuro: alert, oriented, no focal neurologic deficit appreciated Discharge Plan Discharge Items Patient Disposition: Home - Self-Care Reason For Visit: WEAKNESS Discharge Diagnosis: erlichioisis Condition on Discharge: Serious Activity: Resume your previous activity Non-emergency contact: Primary Care Provider, Pick Up Truck Driver and Fitness Manager Call non-emergency contact if: you have any medication questions, your symptoms worsen, your pain is concerning for you and you have a fever Follow-up/Referrals: Viral Lai DO [Primary Care Provider] - Diet: Carb Consistent or DM2, Heart Healthy and Low Fat Diet Comment: continue fluid restriction Addtl Attending Provider Instructions: Follow-up with your primary care doctor, heart doctor and kidney doctor within 1 week. Follow-up with infectious disease doctor As instructed. Repeat blood works through your doctor in a few days to monitor your sodium level and kidney function. Pending Studies at Discharge: No Studies:: BMP In 2 to 3 days Stand-Alone Forms: My [employer], Smoking Cessation Medications and DC Order Prescriptions: New sodium chloride 1,000 mg Tablet,Soluble 2,000 mg PO BID Qty: 30 0RF doxycycline hyclate 100 mg Capsule 100 mg PO BID 10 Days Qty: 20 0RF atovaquone 750 mg/5 mL suspension 750 mg PO Q12H 10 Days Qty: 100 0RF Rx Instructions: must administer with food, preferably a high-fat meal azithromycin 250 mg tablet 250 mg PO DAILY 10 Days Qty: 10 0RF Continued (DME) OneTouch Ultra Test Strip See Dose Instructions .ROUTE .MEDSUPPLY Qty: 400 3RF Dose Instruction: As directed Rx Instructions: Test blood sugar four times daily modafinil [Provigil] 200 mg tablet 200 mg PO QAM Qty: 90 1RF lisinopril 20 mg tablet 20 mg PO HS Qty: 90 3RF insulin glargine [Lantus U-100 Insulin] 100 unit/mL solution 55 unit subcut QPM Qty: 50 3RF methimazole 10 mg tablet 10 mg PO UD Qty: 90 1RF Rx Instructions: alternate 10 mg with 5 mg qod orally daily; furosemide 20 mg tablet 40 mg PO QAM Qty: 90 3RF (DME) lancets [OneTouch Delica Lancets] 30 gauge misc See Rx Instructions .ROUTE .MEDSUPPLY Qty: 25 Rx Instructions: use 4 daily cranberry conc-ascorbic acid 4,200-20 mg capsule 1 cap PO QAM aspirin 81 mg tablet,delayed release (DR/EC) 81 mg PO QAM (DME) insulin syringe-needle U-100 [BD Insulin Syringe Ultra-Fine] 1 mL 30 gauge x 1/2" syringe See Rx Instructions .ROUTE .MEDSUPPLY Qty: 400 3RF Rx Instructions: Inject insulin four times daily vitamin B complex Capsule 1 cap PO QAM insulin aspart U-100 [Novolog U-100 Insulin aspart] 100 unit/mL solution 10 unit subcut TID garlic 1,000 mg Capsule 1,000 mg PO QAM aloe vera 25 mg capsule 75 mg PO QAM Rx Instructions: 3-4 times per week Discharge Orders: Discharge Order (Routine); Ordered 12/22/24 Ordered By: Jonathon Garland Admission Data Admit Date/Time: 12/19/24 02:08 Attending Provider: Jonathon Garland Admit Provider: Stanford Rosado Primary Care Provider: Viral Lai Other Providers: Laura Alejandra; Peter Boston; Neptali Christie; Bill Vasquez; John Brumfield; Brody Sánchez Jr; Bonilla Kauffman; Laney Suarez; Tamra Esteban; Tayo Pena; Tayo Vang; Gricelda Rodriguez; Nitish Brito; Klaudia Alcocer; Nitish Pizarro; Jordan Handy; Ed Verma; Chandan Echevarria; Cuco Rahman; Bin Sanchez; Shira Gupta; Kary Love; Daisy Calderon; Marely Williamson; Laura Cary; Valerie Silveira; Mel Omalley; Nate Alcaraz; Hue Solorio; Kenneth Denney; Krista Veronica Hospital Stay Data Consultations 12/19/24 00:59 ED Decision to Admit Stat 12/19/24 07:58 Consult Cardiology Routine 12/19/24 08:02 Consult Infectious Diseases Routine 12/19/24 08:04 Consult Nephrology Routine Pending Results Patient Have Any Pending Studies at Discharge: No Discharge Instructions Given to Patient (Per Discharging Provider) Follow-up with your primary care doctor, heart doctor and kidney doctor within 1 week. Follow-up with infectious disease doctor As instructed. Repeat blood works through your doctor in a few days to monitor your sodium level and kidney function. Total Time Total Time Spent Total Time Spent (In Minutes): 35 Coding Level of Care Code 66996 INP/OBS DISCH >30 MIN Diagnoses Babesiosis B60.00 Acute hyponatremia E87.1 Hypoxia R09.02 Generalized weakness R53.1 Mass of right parotid gland K11.8 Status post placement of cardiac pacemaker Z95.0 Symptomatic bradycardia R00.1 Primary hypertension I10 Hypertension type: primary hypertension Type 2 DM with CKD stage 3 and hypertension E11.22; I12.9; N18.3 Hyperthyroidism E05.90 TIFFANY (obstructive sleep apnea) G47.33 Hyperlipidemia E78.5
[2024-12-22] MEDS: DOXYCYCLINE HYCLATE 100 MG CAP PO SCH (10:53)
--- NOTE | 2024-12-22 11:23 | Infectious Disease Progress Nt ---
Date of Service December 22, 2024 Assessment & Plan (1) Babesiosis: (2) Enteropathogenic Escherichia coli infection: (3) Thrombocytopenia: Plan Problems: #Babesia #Thrombocytopenia #HOMER: resolved #Elevated LFTs Micro: 12/19 GI pathogen panel: + EPEC 12/19 RPP: neg 12/19 BCx x2: NGTD 12/19 Lyme screen: negative 12/19 Anaplasma PCR: pending 12/19 Babesia PCR: pending 12/19 Ehrlichia PCR: pending 12/19 Q fever Ab: pending 12/19 Rickettsia Ab: pending 12/19 Typhus fever Ab: pending 12/18 Anaplasma/Babesia smear: Babesia seen Abx: Azithro 12/19 - present Atovaquone 12/19 - present Doxy 12/19 - present Cefepime 12/19 74 yo M with history of heart block s/p pacemaker, HTN, T2DM, CKD, BPH, TIFFANY, HLD, hyperthyroidism who presented on 12/18 with generalized weakness, malaise, fevers x 5 days, found to have Babesia. Denied rash, arthralgias. On presentation, pt was febrile to 38.7, RR 33, 88% on room air requiring 2 L NC. Labs showed WBC 6.25, Hb 12, plt 59, Na 121, Cr 2.05, AST 53, ALT 53, Tbili 1.3, procal 1.57. Respiratory pathogen panel negative. CXR with cardiomegaly and mild pulmonary vascular congestion. Anaplasma/Babesia smear was positive for Babesia. Was given a dose of cefepime in the ED, then was started on atovaquone and azithromycin, as well as doxycycline. Anaplasma, Ehrlichia and Babesia PCR, Q fever Ab, Rickettsia Ab, Typhus fever Ab pending. Lyme screen negative. C diff negative. GI pathogen panel positive for EPEC. On my evaluation, pt reports feeling much improved, although not quite back to baseline. He states he has not been outside much because he takes care of his . However, he did have to lay on the ground recently to change a motor. Has a dog and cat, and the dog does go outdoors. Denies rashes. Blood smear 12/20 with <0.1% parasitemia. Recommendations: - Continue azithro 250 mg PO daily and atovaquone 750 mg PO q12h through 12/28 to complete a 10 day course - Anaplasma smear negative, Lyme screen negative, and Ehrlichia PCR still pending. - Unclear that pt has coinfection with another tickborne illness, but can continue empiric doxycycline through 12/28 to complete a 10 day course Will sign off. Admission and Anticipated Discharge Date Admission Date: December 19, 2024 Subjective This patient recommendation is based on a telemedicine consult request which was completed asynchronously through chart review and information provided by the primary physician. The patient was not seen or examined today. The evaluation is consultative in nature and all patient care and treatment decisions can either be accepted or rejected by the patient's primary hospital-based treating physician using their own independent medical judgment for their patient. Time Spent Reviewing Chart: 11 - 20 minutes Pt feeling improved Thrombocytopenia improved AST, ALT downtrending Results & Data Vital Signs (Past 12 Hours) Vital Signs Temp Pulse Pulse Resp BP Pulse Ox O2 Del Method 12/22/24 07:48 36.5 C 60 18 94/59 L 93 Room Air 12/22/24 07:09 Room Air 12/22/24 07:09 75 12/22/24 03:24 36.5 C 56 L 20 119/77 95 Room Air 12/21/24 23:41 36.6 C 66 20 101/67 95 Room Air Laboratory Results Short CBC 12/22/24 Range/Units 07:05 WBC 5.45 (4.8-10.8) K/ul Hgb 12.2 L (14.0-18.0) g/dl Hct 34.4 L (42.0-52.0) % Plt Count 147 D (130-400) K/uL BMP 12/21/24 12/22/24 14:01 07:05 Sodium 128 L 131 L Potassium 4.4 4.5 Chloride 95 L 99 Carbon Dioxide 26 25 BUN 38 H 38 H Creatinine 1.94 H 1.60 H D Glucose 330 H* 197 H Calcium 8.5 L 8.6 Liver Function 12/22/24 Range/Units 07:05 Total Bilirubin 1.0 (0.2-1.0) mg/dl AST 39 (13-39) U/L ALT 62 H (7-52) U/L Alkaline Phosphatase 49 (34-104) U/L Albumin 3.7 (3.4-5.0) gm/dl Medications Administered Current Inpatient Medications Acetaminophen (Acetaminophen 500 Mg Tab) 1,000 mg PO Q8H PRN PRN Reason: Pain or Fever Stop: 01/18/25 04:20 Last Admin: 12/20/24 04:43 Dose: 1,000 mg Aspirin (Aspirin 81 Mg Ectab) [facility] [place] Stop: 01/18/25 08:59 Last Admin: 12/22/24 08:11 Dose: 81 mg Atovaquone (Atovaquone 750 Mg/5 Ml Udc) 750 mg PO Q12H [facility] Stop: 01/18/25 08:59 Last Admin: 12/22/24 08:11 Dose: 750 mg Azithromycin (Azithromycin 250 Mg Tab) 250 mg PO [facility] Stop: 12/28/24 14:59 Last Admin: 12/22/24 08:11 Dose: 250 mg Dextrose (Dextrose 50% 50 Ml Syringe) 25 - 50 ml IV UD PRN; Protocol PRN Reason: Hypoglycemia Protocol Stop: 01/18/25 04:20 Doxycycline Hyclate (Doxycycline Hyclate 100 Mg Cap) 100 mg PO BID [facility] Stop: 01/05/25 10:14 Last Admin: 12/22/24 10:53 Dose: 100 mg Furosemide (Furosemide 40 Mg Tab) 40 [facility] [place] Stop: 01/19/25 10:44 Last Admin: 12/22/24 08:11 Dose: 40 mg Glucagon (Glucagon For Inj 1 Mg Vial) 1 mg SQ UD PRN; Protocol PRN Reason: Hypoglycemia Protocol Stop: 01/18/25 04:20 Glucose (Glucose 40% Gel 15 Gm Tube) 15 - 30 gm PO UD PRN; Protocol PRN Reason: Hypoglycemia Protocol Stop: 01/18/25 04:20 Glucose (Glucose 10 Tab/Tube) 4 - 8 tab PO UD PRN; Protocol PRN Reason: Hypoglycemia Protocol Stop: 01/18/25 04:20 Insulin Aspart (Insulin Aspart Per Unit Charge) 0 units SC ACHS [facility] Stop: 01/18/25 04:44 Last Admin: 12/22/24 08:10 Dose: 6 units Insulin Glargine (Lantus Per Unit Charge) 55 units SQ QDL [facility] Stop: 01/20/25 11:29 Last Admin: 12/21/24 11:52 Dose: 55 units Lisinopril (Lisinopril 20 Mg Tab) 20 mg PO HS [facility] Stop: 01/18/25 20:59 Melatonin (Melatonin 3 Mg Tab) 3 mg PO HS PRN PRN Reason: Sleep Stop: 01/18/25 04:20 Methimazole (Methimazole 5 Mg Tablet) 10 mg PO UD [facility] Stop: 01/18/25 04:20 Miscellaneous (Carbohydrates For Hypoglycemia ) 15 - 30 gm PO UD PRN PRN Reason: Hypoglycemia Protocol Stop: 01/18/25 04:20 Modafinil (Modafinil 100 Mg Tab) 200 mg PO QAM [facility] Stop: 01/18/25 08:59 Last Admin: 12/22/24 08:13 Dose: 200 mg Ondansetron HCl (Ondansetron Inj 2 Mg/Ml 2 Ml Vial) 4 mg IV Q6H PRN PRN Reason: Nausea Stop: 01/18/25 04:20 Last Admin: 12/20/24 21:08 Dose: 4 mg Polyethylene Glycol (Polyethylene (Miralax) 17 Gm Pack) 17 gm PO DAILY PRN PRN Reason: Constipation Stop: 01/18/25 04:20 Sodium Chloride (Sodium Chloride 1 Gm Tablet) 2 gm PO BID [facility] Stop: 01/19/25 10:44 Last Admin: 12/22/24 08:11 Dose: 2 gm
== END 2024-12-22 12:07 | disposition home or self-care (01) | DRG 867 ==
LOC: ED 23:02 → EDINP 12-19 02:08 → SUATTDRO 12-19 02:08 → 2S 12-19 03:02